=== PATIENT | female | born 1985 | race Caucasian/White ===

== ENCOUNTER 2017-08-13 15:52 | Emergency (ER) | payer OTHER ==
[~2017-08-13] VITALS: Ht 167.6 cm; Wt 99.8 kg
[~2017-08-13 15:52] MED LIST: AMITRIPTYLINE H10 MG PO; AMITRIPTYLINE H25 MG PO; AUGMENTIN 875-1 EACH PO; BACTRIM DS TAB1 EACH PO; DIVALPROEX SOD250 MG PO; HYDROCODON-ACE1 EA10 PO; IBUPROFEN200 M1 PO; KEFLEX500 MG PO; MACROBID 100 M100 MG PO; MOTRIN IB200 MG PO; MOTRIN600 MG PO; NICODERM CQ1 EAC1 TD; NORCO 5-325 TA1 EACH PO; OMEPRAZOLE20 MG PO; ORTHO TRI-CYCL1 EACH PO; OXYCODONE HCL10 MG PO; OXYCODONE-ACET1 EAC1 PO; PERCOCET 5-3251 EACH PO; PRENATAL VITAM1 EAC3 PO; PRILOSEC OTC20 MG PO; PROMETHAZINE HC25 M1 PO; PROTONIX40 MG PO; SENNA8.6 MG PO; TUMS200 MG PO; TYLENOL EXTRA500 MG PO; TYLENOL325 MG PO; ZOFRAN4 MG PO; ZOLOFT100 MG PO; ZOLOFT25 MG PO
[2017-08-13] MEDS ORDERED: GABAPENTIN600 MG PO ×2 (16:28→16:29)
[2017-08-13] MEDS ORDERED: ULTRAM50 MG PO (17:49)
== END 2017-08-13 18:33 | disposition home or self-care (01) ==
LOC: ED 15:52
DX: S93.401A Sprain of unspecified ligament of right ankle, initial encounter (principal); F17.200 Nicotine dependence, unspecified, uncomplicated; Z90.710 Acquired absence of both cervix and uterus; Z90.49 Acquired absence of other specified parts of digestive tract; Z88.8 Allergy status to other drugs, medicaments and biological substances; Z79.899 Other long term (current) drug therapy; X50.1XXA Overexertion from prolonged static or awkward postures, initial encounter
CPT/HCPCS: 73610; 99283

== ENCOUNTER 2018-01-14 19:58 | Emergency (ER) | payer OTHER ==
[~2018-01-14] VITALS: Ht 167.6 cm; Wt 99.8 kg
[~2018-01-14 19:58] MED LIST changes: +GABAPENTIN600 MG PO; +ULTRAM50 MG PO
== END 2018-01-14 22:12 | disposition home or self-care (01) ==
LOC: ED 19:58
DX: G43.909 Migraine, unspecified, not intractable, without status migrainosus (principal); F17.200 Nicotine dependence, unspecified, uncomplicated; Z88.8 Allergy status to other drugs, medicaments and biological substances; Z79.899 Other long term (current) drug therapy
CPT/HCPCS: 96361; 96374; 96375; 99282; J1200; J1885; J2765; J7030

== ENCOUNTER 2019-03-03 11:00 | Day surgery (SDC) | payer OTHER ==
[~2019-03-03] VITALS: Ht 167.6 cm; Wt 140.2 kg
[~2019-03-03 11:00] MED LIST changes: +AMITRIPTYLINE H75 MG PO; +HYDRALAZINE HCL10 MG PO
[2019-03-03] MEDS ORDERED: HYDROCODON-ACE1 EA10 PO (12:41)
[2019-03-03] MEDS ORDERED: CELEBREX200 MG PO (12:41)
--- NOTE | 2019-03-03 12:46 | NUR ---
03/03/19 1246 Sheets,Milka 1238 PT ARRIVED TO PACU ON 10L VIA MASK, PT DENIES PAIN AND NAUSEA. RESP EVEN AND UNLABORED. PT DROWSY AND TLAKING TO RN. PT REORIENTED TO PACU. PT REPORTS NUMBNESS IN HAND, EDUCAITON GIVEN ON BLOCK. 1242 O2 REMOVED, PT ASKING TO WATER. RIGHT HAND ELEVATED ON PILLOW. PT BACK TO SLEEP, SMALL AMOUNT OF SNORING NOTED.
--- NOTE | 2019-03-04 11:48 | OR ---
[facility] [address], [place] [address] Signed DATE OF OPERATION: 03/03/2019 SURGEON: Domenic Steele MD PREOPERATIVE DIAGNOSIS: Right carpal tunnel syndrome. POSTOPERATIVE DIAGNOSIS: Right carpal tunnel syndrome. PROCEDURE PERFORMED: Right carpal tunnel release. ANESTHESIA: [place] block with sedation. TEAM CDL DRIVER: None. TOURNIQUET TIME: 21 minutes. BRIEF HISTORY: Poornima is a 34-year-old female with progressive worsening of numbness and pain in her wrist and hand. Nerve conduction studies were consistent with severe carpal tunnel. Risks and benefits of operative treatment were discussed with her and she elected to proceed. DESCRIPTION OF PROCEDURE: Once the consent was obtained, she was taken to the operating room. After adequate anesthesia, she was placed on the operating room table. All downside pressure points were well padded. The right arm was prepped and draped in the standard sterile fashion. A standard 1.5 cm incision was made in the distal wrist crease, carried through skin and subcutaneous tissue. Palmaris longus was identified, retracted and protected. The transverse carpal ligament was identified with some difficulty due to overlying fat. We were able to identify and dissect free overlying soft tissue. It was then released proximally 1 cm and distally to the distal extent. It was quite thickened in its midportion. This was done under loupe magnification. The canal was then completely palpated using the [place] elevator and found to be released. The wound was copiously irrigated with antibiotic solution and closed with 3-0 nylon. We did inject 3 mL of Electronically Signed By: DOMENIC STEELE MD 03/04/19 1148 PATIENT NAME: POORNIMA CHOUDHARY OPERATIVE REPORT DATE OF : 85 REPORT #: [id number] PHYSICIAN: DOMENIC STEELE MD PCP: STAR MARTINEZ REPORT IS CONFIDENTIAL AND NOT TO BE RELEASED WITHOUT AUTHORIZATION [facility] [address] [place] [facility] [place] [address] Signed 0.25% plain Marcaine without epinephrine at the end of the procedure. She tolerated this well. The wound was dressed with bacitracin, Adaptic, 4 x 8, and gauze. She was taken to the recovery room in satisfactory condition. Domenic Steele MD BA/MODL /[id number] Copies: ~ Electronically Signed By: DOMENIC STEELE MD 03/04/19 1148 PATIENT NAME: POORNIMA CHOUDHARY OPERATIVE REPORT DATE OF : 85 REPORT #: [id number] PHYSICIAN: DOMENIC STEELE MD PCP: STAR MARTINEZ REPORT IS CONFIDENTIAL AND NOT TO BE RELEASED WITHOUT AUTHORIZATION
== END 2019-03-03 13:25 | disposition home or self-care (01) ==
LOC: OPS 11:00 → DS 11:00 → OPS 12:00
PROVIDERS: Specialist
PROC: 01N50ZZ Release Median Nerve, Open Approach (ICD-10-PCS; principal; 2019-03-03 12:00)
DX: G56.03 Carpal tunnel syndrome, bilateral upper limbs (principal); G43.909 Migraine, unspecified, not intractable, without status migrainosus; K21.9 Gastro-esophageal reflux disease without esophagitis; E66.01 Morbid (severe) obesity due to excess calories; Z79.899 Other long term (current) drug therapy; Z68.42 Body mass index [BMI] 45.0-49.9, adult
CPT/HCPCS: J0690; J2597; J2704; J3010; J7120

== ENCOUNTER 2021-02-11 08:05 | Day surgery (SDC) | payer OTHER ==
[~2021-02-11] VITALS: Ht 167.6 cm; Wt 155.0 kg
[~2021-02-11 08:05] MED LIST changes: +CELEBREX200 MG PO
--- NOTE | 2021-02-11 12:33 | NUR ---
02/11/21 Edwige Bolton 1226-PATIENT ARRIVED TO PACU ON 6L MASK NONAROUSABLE ORAL AIRWAY IN PLACE. SR. RN DOING JAW THRUST TO MAINTAIN OPEN AIRWAY. 02 SAT RANGING 90-91% O2 INCREASED TO 10 L MASK O2 INCREASED TO 93-94% ABDOMEN ROUND AND ABDOMINAL BINDER IN PLACE. 2 INCISIONS CDI DOMENCIA DRAIN SANGUINOUS DRAINAGE. IVF INFUSING. 1233-RN CONTINUES TO DO JAW THRUST. PATIENT NONAROUSABLE 10L MASK 94% RR EVEN.
[2021-02-11] MEDS ORDERED: ACETAMINOPHEN500 MG PO (13:00)
[2021-02-11] MEDS ORDERED: IBUPROFEN600 MG PO (13:00)
--- NOTE | 2021-02-11 13:42 | NUR ---
1330: PT ARRIVES TO DS RM 12 FROM PACU AWAKE AND ALERT. PT STATES PAIN IS TOLERABLE EXCEPT FOR WHEN SHE MOVES. PT ALSO STATES FEELING NAUSEATED AND BEING "REALLY HOT." PT PROVIDED ALCOHOL SWAB TO INHALE, COOL WASH CLOTH TO FOREHEAD AND FLORENCIA HUGGER ON COOL. PT MOTHER AT BEDSIDE, CALL LIGHT WITHIN REACH. DC CRITERIA EXPLAINED TO PT, PT STATES, "I AM JUST REALLY TIRED."
--- NOTE | 2021-02-11 14:46 | NUR ---
PT RESTING IN BED, REQUESTS "7-UP" FOR NAUSEA AND PROVIDED [place] SODA AND IV MEDICATION, SEE EMAR. PT STATES PAIN IN ABD IS 6/10 AND WOULD LIKE TO TRY PO PAIN MEDS. PT CONT TO USE FLORENCIA HUGGER ON COOL TO FACE STATES, "I NEED ONE OF THESE FOR HOME, I AM SO WARM BLOODED." CALL LIGHT WITHIN REACH, MOTHER OUT OF ROOM AT THIS TIME.
--- NOTE | 2021-02-11 14:59 | NUR ---
[id number]: CHECKED ON PT, RESTING SOUND WITH EYES CLOSED ON 2 L VIA NC WITH SATS GREATER THAN 94%. PT DOES NOT WAKE WITH OPENING OF DOOR, MOTHER AT BEDSIDE ON PERSONAL CELL PHONE.
--- NOTE | 2021-02-11 15:46 | NUR ---
PT RESTING IN BED WITH MOTHER AT BEDSIDE. PT STATES BEING HOT AND REQUESTS SCD'S TO BE REMOVED. THIS RN ENCOURAGES PT TO PUMP FEET AND MOVE LEGS, PT AGREES. PT STATES NAUSEA IS "MUCH BETTER" AND TOLERATES SODA AND PUDDING WITH NO EMESIS. PT STATES PAIN IS "WHERE I ALWAYS LIVE AT 4/10" AND TOLERABLE. PT ENCOURAGED TO USE CALL LIGHT WITH URGE TO VOID.
--- NOTE | 2021-02-11 16:01 | NUR ---
PT SITS AT SIDE OF BED WITH RN ASSIST. DENIES ANY NAUSEA OR DIZZINESS WITH POSITION CHANGE. PT STANDS AT SIDE OF BED AND EVENTUALLY AMBULATES WITH STEADY GAIT TO BATHROOM AND IS ABLE TO VOID APPROX 300 MLS SAE COLORED URINE. PT BACK TO DS RM 12 AND WOULD LIKE TO GET DRESSED IN PREPARATION TO DC HOME. PT MOTHER IN RM TO ASSIST IF NEEDED.
--- NOTE | 2021-02-11 16:47 | NUR ---
1615: DC INSTRUCTIONS PRESENTED TO PT AND MOTHER, PT AWARE OF MEDICATION CALLED TO PREFERRED PHARMACY. DOMENICA DRAIN EMPTIED OF APPROX 40 MLS SANGUINOUS OUTPUT WITH SMALL CLOT PRESENT. PT EDUCATED HOW TO CARE FOR DRAIN AND PRINTED EDUCATION ALSO PROVIDED. PT ABLE TO TRANSFER SELF FROM STRETCHER TO AND THIS RN PUSHES PT AND PURVI RN PUSHES PT MOTHER WHO USES CANE IN SEPERATE WC TO PERSONAL VEHICLE IN PARKING LOT TO HOME.
--- NOTE | 2021-02-11 19:50 | OR ---
[facility] [address] [place], [place] [address] Signed DATE OF OPERATION: 02/11/2021 SURGEON: Cleve Condon MD PREOPERATIVE DIAGNOSES: 1. Morbid obesity, 380 pounds. 2. Incarcerated incisional hernia, lower abdomen. POSTOPERATIVE DIAGNOSES: 1. Morbid obesity, 380 pounds. 2. Incarcerated incisional hernia, lower abdomen. PROCEDURES: 1. Repair of incarcerated painful incisional hernia, prolonged, complicated and difficult. 2. Implantation of Prolene mesh underlay technique. ANESTHESIA: General endotracheal, Anders Phan, [employer], and local 10 mL of 0.25% Marcaine with epinephrine. INDICATION: This morbidly obese 380-pound 36-year-old woman is a patient of [facility] Roberts. She was having significant abdominal pain in the lower abdomen. She has undergone prior pelvic laparotomy through a midline incision for appendectomy in 2001, which was difficult at that time. Imaging studies including CT scan show a significant amount of herniated small bowel and the subcutaneous tissue emanating inferiorly and to the right. She has significant pain and tenderness to the site. There is a smaller inconsequential midline incisional hernia in the upper midline which has only fat in it but it is of little concern and not symptomatic. Given the incarcerated nature of the hernia and despite her obesity and ongoing use of marijuana, smoking, repair is indicated given the extensive amount of small bowel herniated and nonreducible. The patient and her mother understand well the risk of bleeding, infection, recurrence and so on. FINDINGS: Electronically Signed By: CLEVE CONDON MD 02/11/21 1950 PATIENT NAME: POORNIMA CHOUDHARY OPERATIVE REPORT DATE OF : 85 REPORT #: [id number] PHYSICIAN: CLEVE CONDON MD PCP: JASSI PORTER PA-C REPORT IS CONFIDENTIAL AND NOT TO BE RELEASED WITHOUT AUTHORIZATION [facility] [address] [place], [place] [address] Signed The defect was inferior to the umbilicus in the midline fascial incision from the past. A very dense hernia sac was noted around it. The bowel loops were primarily small bowel and there were interloop adhesions related to the chronicity of the herniation apparently. The bowel loops were freed up and returned to the abdominal cavity. A fair amount of omentum was herniated as well. Hernia repair consisted of reduction of the hernia, reapproximation of the peritoneal defect and development of the properitoneal space circumferentially with implantation of Prolene mesh in the properitoneal space. Transverse reapproximation of fascial edges was undertaken as well. Prolene sutures as well as Prolene pledgets were used. A drain was placed. DESCRIPTION OF PROCEDURE: The patient was brought to the operating room and given a general endotracheal anesthetic. Preoperative antibiotic Ancef was given. Sequential compression device stockings were used and heparin subcutaneously administered. The abdominal pannus was quite impressive. There was a bit of excoriation in the inferior pannus crease but no sign of active infection per se. The abdomen was clipped and prepared with an iodine based solution and given a bit of panniculitis inferiorly, Ioban dressing was applied as well. An incision was made cephalad to the umbilicus, extended around the umbilicus to the right and carried inferiorly. A very thick abdominal pannus was noted. Dissection was carried through the subcutaneous tissues with electrocautery. There was no significant defect at the umbilicus proper, but inferior to it and corresponding to the midline incision dense scarring could be identified. Ultimately a very amorphous and rather large area of herniation was noted. This was freed from the surrounding subcutaneous tissue with blunt electrocautery dissection. Ultimately, the fibrous confines of the fascial defect could be identified. This was approximately 4-6 cm. The hernia sac was opened and small bowel contained within it had a fair amount of adhesions to the hernia sac itself. These were freed with blunt electrocautery dissection. Interloop adhesions were freed with sharp dissection. The small bowel was returned to the intraabdominal cavity and as was the omentum. The peritoneal layer and overlying fascia were freed circumferentially with meticulous care and the peritoneal defect reapproximated with 2-0 Vicryl suture. Once the properitoneal space was freed circumferentially to the level of at least 4 cm, a 6 inch x 6 inch piece of Prolene mesh was cut to an oblong configuration and secured transversely in the properitoneal space. This was secured with 0 Prolene sutures with Prolene pledgets. The fascia was then reapproximated transversely with interrupted 0 Prolene in horizontal mattress configuration using Prolene pledgets as well. A 10 mL of 0.25% Marcaine was injected locally. Irrigation was undertaken. Given the extent of dissection and so forth, a stab incision was made in the right lower quadrant and a 7 mm Arron placed into the depths of the wound. Armando's layer was reapproximated with interrupted 2-0 Vicryl. The skin was closed with running subcuticular 3-0 Vicryl. Steri-Strips were applied as was an Acticoat dressing. The drain was attached to bulb Electronically Signed By: CLEVE CONDON MD 02/11/21 1950 PATIENT NAME: POORNIMA CHOUDHARY OPERATIVE REPORT DATE OF : 85 REPORT #: [id number] PHYSICIAN: CLEVE CONDON MD PCP: JASSI PORTER PA-C REPORT IS CONFIDENTIAL AND NOT TO BE RELEASED WITHOUT AUTHORIZATION [facility] [address] [place], [place] [address] Signed suction. Blood loss from the operation was probably 25 mL. The operation was prolonged, complicated, and difficult lasting four times longer than usual. Upon emergence from anesthesia, she had a fair amount of coughing and straining. The incision was stabilized as best could be. She was taken down to the depths of anesthesia again and carefully withdrawn at this time not having as much straining. I detected no disruption of the fascial repair despite her extreme straining as noted. She was then configured with an extra-large abdominal binder and transported to the recovery room in good condition having suffered no known complications. Sponge, needle, and instrument counts were reported as correct x3. The operation was prolonged, complicated, and difficult as previously noted. Secure repair of the defect has been accomplished. MD MELISSA Sibley/LAWRENCE /[id number] cc: Denia HONG Copies: ~ Electronically Signed By: CLEVE CONDON MD 02/11/21 1950 PATIENT NAME: POORNIMA CHOUDHARY OPERATIVE REPORT DATE OF : 85 REPORT #: [id number] PHYSICIAN: CLEVE CONDON MD PCP: JASSI PORTER PA-C REPORT IS CONFIDENTIAL AND NOT TO BE RELEASED WITHOUT AUTHORIZATION
== END 2021-02-11 16:30 | disposition home or self-care (01) ==
LOC: DS 08:05 → OPS 08:05 → DS 08:45 → OPS 08:45
PROVIDERS: ATTEND Surgery
PROC: 0WUF0JZ Supplement Abdominal Wall with Synthetic Substitute, Open Approach (ICD-10-PCS; principal; 2021-02-11 08:45)
DX: K43.6 Other and unspecified ventral hernia with obstruction, without gangrene (principal); G47.33 Obstructive sleep apnea (adult) (pediatric); E66.01 Morbid (severe) obesity due to excess calories; K21.9 Gastro-esophageal reflux disease without esophagitis; F32.9 Major depressive disorder, single episode, unspecified; F19.21 Other psychoactive substance dependence, in remission; Z68.43 Body mass index [BMI] 50.0-59.9, adult; Z90.49 Acquired absence of other specified parts of digestive tract; Z90.711 Acquired absence of uterus with remaining cervical stump
CPT/HCPCS: 00752; C1781; J0690; J1100; J1170; J1644; J1885; J2001; J2250; J2370; J2405; J2704; J3010; J7121

== ENCOUNTER 2021-02-21 18:18 | Emergency (ER) | payer OTHER ==
[~2021-02-21] VITALS: Ht 167.6 cm; Wt 136.5 kg
[~2021-02-21 18:18] MED LIST changes: +ACETAMINOPHEN500 MG PO; +IBUPROFEN600 MG PO
--- OUTSIDE RECORDS SUMMARY | 2021-02-21 18:20 | XMS ---
PreManage Notification: POORNIMA CHOUDHARY Security Clerical Manager Events No recent Security Events currently on file CRITERIA MET - Group Notification CARE PROVIDERS PERFECTO HUNTER [facility] Current PHONE: Unknown Cm has no Care Guidelines for this patient. EJuly VISIT COUNT (12 MO.) 1 NORMA Tavares TOTAL 1 NOTE: Visits indicate total known visits. ED/UCC VISIT TRACKING (12 MO.) 02/21/2021 18:18 NORMA Womack [place] TYPE: Emergency COMPLAINT: - POST OP PROBLEM INPATIENT VISIT TRACKING (12 MO.) No inpatient visits to display in this time frame [email or web address]
== END 2021-02-21 21:18 | disposition home or self-care (01) ==
LOC: ED 18:18
DX: T81.31XA Disruption of external operation (surgical) wound, not elsewhere classified, initial encounter (principal); G43.909 Migraine, unspecified, not intractable, without status migrainosus; Z88.8 Allergy status to other drugs, medicaments and biological substances; Z79.899 Other long term (current) drug therapy
CPT/HCPCS: 12020; 99283-25

== ENCOUNTER 2021-04-28 09:59 | Observation (INO) | payer OTHER ==
[~2021-04-28] VITALS: Ht 167.6 cm; Wt 137.0 kg
--- NOTE | 2021-04-28 15:45 | NUR ---
Pt arrives to med surg floor via stretcher. Alert and oriented, on room air. Reporting pain 8/10 to ABD and nauseous. PRN medication administered. VSS. Admission assessment and history completed. Plan of care reviewed, pt agreeable. MotherWendy, in room and engaged in care. IVF infusing WNL. Warm blankets provided. Oriented to room and call light.
--- NOTE | 2021-04-28 18:02 | NUR ---
Vitals and I/O's complete, pain reassessed, pt states tolerable level of pain and no nausea after medications. Pt updated on plan of care, has no needs at this time. IVF infusing WNL. Call light in reach.
--- NOTE | 2021-04-28 19:39 | NUR ---
WENT OVER THE CONSENT WITH PATIENT, SHE HAD NO QUESTIONS.
--- NOTE | 2021-04-28 19:46 | NUR ---
REPORT RECEIVED FROM DAY SHIFT RN. PT LYING IN BED ALERT AND ORIENTED. LIQUIDS PROVIDED. PT REPORTS ABD PAIN 04/29. PRN FOR PAIN ADMINISTERED PER EMAR. PT DENIES FURTHER NEEDS. CALL LIGHT IN REACH. WHITE BOARD UPDATED.
--- NOTE | 2021-04-28 20:25 | NUR ---
EVENING ASSESSMENT COMPLETE. SCHEDULED MEDS ADMINISTERED PER EMAR. PT REPORTS ABD PAIN IS TOLERABLE AT THIS TIME. DENIES NAUSEA. BOWEL TONES HYPOACTIVE. ABD TENDED. SANDWICH BOX PROVIDED. PT DENIES QUESTIONS OR CONCERNS. CALL LIGHT IN REACH.
--- NOTE | 2021-04-28 22:45 | NUR ---
PT RESTING IN BED ON LEFT SIDE WITH EYES CLOSED. RESPIRATIONS EVEN. IVF INFUSING WNL. CALL LIGHT IN REACH.
--- NOTE | 2021-04-29 00:10 | NUR ---
PT UP TO BR INDEPENDENTLY. BACK TO BED, LAYLA FAIR. PRN FOR 8/10 ABD PAIN ADMINISTERED PER EMAR. PT NPO AT THIS TIME. IVF INFUSING WNL. NO FURTHER NEEDS.
--- NOTE | 2021-04-29 00:58 | NUR ---
CALL LIGHT ANSWERED. PT WITH LARGE EMESIS ON FLOOR. PRN FOR N/V ADMINISTERED PER EMAR. PT REPORTS FEELING BETTER AFTER EMESIS. ES IN ROOM TO CLEAN FLOOR. NO FURTHER NEEDS AT THIS TIME. CALL LIGHT IN REACH.
--- NOTE | 2021-04-29 01:13 | NUR ---
MORE VOMITUS ON THE FLOOR WITH SOME PIECES LIKE CHICKEN MEAT.
--- NOTE | 2021-04-29 03:45 | NUR ---
PT RESTING IN BED WITH EYES CLOSED, NAD.
--- NOTE | 2021-04-29 06:04 | NUR ---
VS AND I&O COMPLETE. PT REPORTS SHE IS RESTING WELL. DENIES NAUSEA. REPORTS HEADACHE 03/29. PRN FOR PAIN ADMINISTERED PER EMAR. BOWEL TONES HYPOACTIVE. SCD'S IN PLACE. IVF INFUSING WNL. NO FURTHER NEEDS AT THIS TIME. CALL LIGHT IN REACH.
--- NOTE | 2021-04-29 07:00 | NUR ---
Report received from Sue CHAVEZ. Pt resting in bed, alert and oriented, stating no needs at this time. Updated regarding plan of care and scheduled procedure, pt is agreeable and has no questions. IVF infusing WNL.
[2021-04-29] MEDS ORDERED: AMITRIPTYLINE H25 MG PO (07:28)
[2021-04-29] MEDS ORDERED: OMEPRAZOLE40 MG PO (07:29)
--- NOTE | 2021-04-29 07:48 | NUR ---
The board was updated, and a warm wash cloth was offered but refused. No requests from the patient at this time.
--- NOTE | 2021-04-29 07:58 | NUR ---
Patient is NPO and requested to freshen up the inside of her mouth. Lemon glycern swaps were provided and used.
--- NOTE | 2021-04-29 08:20 | NUR ---
Scheduled medications administered, assessment complete. Pt resting with no needs, states no pain or nausea at this time, IVF infusing WNL. Surgical wipedown wipes provided and pt verbalizes understanding of instructions, encouraged to call with needs.
[2021-04-29] MEDS ORDERED: ALEVE220 MG PO (08:25)
--- NOTE | 2021-04-29 08:27 | NUR ---
MED REC COMPLETE
--- NOTE | 2021-04-29 09:48 | NUR ---
Vitals are done and I&Os were recorded. Pateint in bed resting, watching tv. Patient asked for pain meds and the nurse was notified. Call light in reach, no further needs at this time.
--- NOTE | 2021-04-29 09:58 | NUR ---
PRN medications for pain, nausea administered. Pt states no other needs and would like to rest before surgery, call light in reach. Will continue to monitor
--- NOTE | 2021-04-29 11:45 | NUR ---
Rounded on patient, resting in bed with no needs. Call light in reach.
--- NOTE | 2021-04-29 12:00 | NUR ---
Pt leaves for procedure.
--- NOTE | 2021-04-29 13:30 | NUR ---
Attempted to see pt and she is gone to surgery. Will see tomorrow.
--- NOTE | 2021-04-29 15:34 | NUR ---
04/29/21 1534 Genoveva Bosch 1522 PATIENT ARRIVES TO PACU RESTING WITH EYES CLOSED. MOANING AT TIMES. PULLING AT OXYGEN MASK. RESP EVEN, BUT NOT EFFECTIVE, VERY SHALLOW. PATIENT ENCOURAGED TO COUGH AND DEEP BREATHE, FOLLOWS COMMANDS. DENIES PAIN, BUT VERY DIAPHORETIC AND NAUSEATED. 1532 PATIENT WAS MEDICATED FOR NAUSEA, BUT CONTINUES TO C/O NAUSEA. RESP EVEN AND UNLABORED, BREATHING MORE EFFECIENTLY . SATS >95% ON 6 LITERS BLOW BY. MASK OFF BECAUSE PATIENT IS DRY HEAVING. PATIENT ABLE TO COUGH UP THICK AMOUNT OF MUCOUS AND FEELING BETTER.
--- NOTE | 2021-04-29 16:50 | NUR ---
Pt arrives to med surg unit via wheelchair after procedure. States pain is minimal, no nausea. Abdominal dressing C/D/I, DOMENICA drain intact with sangiunous drainage noted. VSS, pt SPO2 ranges from 88-95% on room air, using I.S. independently.
--- NOTE | 2021-04-29 18:21 | NUR ---
PATIENT UP TO BATHROOM AND BACK TO BED, SBA. PATIENT ATE JELLO AND PUDDING AND IS TOLERATING IT WELL. FRESH WATER GIVEN. VISITOR IN ROOM. CALL LIGHT IN REACH. NO FURTHER NEEDS AT THIS TIME.
--- NOTE | 2021-04-29 19:01 | NUR ---
Pt medicated for 4/10 pain with PRN tylenol and toradol. Pt tolerating PO intake, on 1.5L O2 and SPO2 91%. Pt has no other needs at this time, expresses desire to be discharged, this RN reassures patient she will be discharged when medically cleared.
--- NOTE | 2021-04-29 19:26 | NUR ---
REPORT RECEIVED FROM DAY SHIFT RN. PT IN BR WITH CREATIVE WRITING TEACHER ASSIST. BACK TO BED, LAYLA WELL. REPORTS PAIN IS TOLERABLE. DENIES NAUSEA. CPOX IN PLACE. IVF INFUSING WNL. DENIES FURTHER NEEDS AT THIS TIME. CALL LIGHT IN REACH.
--- NOTE | 2021-04-29 19:50 | NUR ---
BREATHING TX COMPLETE. PT SpO2 93 ON 1L/NC. DENIES SOB. PT HAS AGREED TO STAY THE NIGHT. POST OP VITALS COMPLETE, WNL. DENIES FURTHER NEEDS. CALL LIGHT IN REACH.
--- NOTE | 2021-04-29 20:25 | NUR ---
INTO PT ROOM D/T IV ALARMING. FIXED, NOW INFUSING. DENIED NEEDS AT THIS TIME.
--- NOTE | 2021-04-29 22:23 | NUR ---
EVENING ASSESSMENT COMPLETE. SCHEDULED MEDS ADMINISTERED PER EMAR. PT DENIES PAIN OR NAUSEA. ABD DRESSING INTACT WITH SCANT AMOUNT SHADOWING. DOMENICA WITH 30 ML SEROSANG DRAINAGE. BOWEL TONES ACTIVE. ABD SOFT. OXYGEN TITRATED TO 3L/NC TO KEEP SATS >90%. PT NODS OFF DURING CARES, REPORTS SHE IS STILL DROWSY FROM ANESTHESIA. CPOX IN PLACE. CLEAR LIQUIDS AND CRACKERS PROVIDED. PT DENIES FUTHER NEEDS. CALL LIGHT IN REACH.
--- NOTE | 2021-04-30 00:12 | NUR ---
PT RESTING IN BED WITH EYES CLOSED, NO APPARENT DISTRESS. RESPIRATIONS EVEN.
--- NOTE | 2021-04-30 01:56 | NUR ---
VS AND I&O COMPLETE. PT ON RA AT THIS TIME. SpO2 90-93% ON RA. PT DENIES PAIN OR NAUSEA. FRESH WATER PROVIDED. NO FURTHER NEEDS.
--- NOTE | 2021-04-30 03:50 | NUR ---
PT RESTING ON BED WITH EYES CLOSED. RESPIRATIONS EVEN. SpO2 90'S. HR 60'S. NO APPARENT DISTRESS.
--- NOTE | 2021-04-30 06:09 | NUR ---
ASSESSMENT COMPLETE. MIDLINE ABD DRESSING WITH SCANT AMOUNT RED DRAINAGE. DOMENICA WITH SEROSANG DRAINAGE. BOWEL TONES ACTIVE. ABD SOFT. PT REPORTS FLATUS. PRN FOR PAIN ADMINISTERED FOR 3/10 ABD PAIN. REGULAR BREAKFAST ORDERED. PT DENIES NAUSEA. NO FURTHER NEEDS. CALL LIGHT IN REACH.
--- NOTE | 2021-04-30 07:39 | NUR ---
BEDSIDE REPORT FROM MAULIK CHAVEZ..PT SITTING UP IN RECLINER ON ROOM AIR, PT REPORTS NO PAIN AT THIS TIME. BREAKFAST IS ORDERED.
--- NOTE | 2021-04-30 08:06 | NUR ---
PT SITTING UP EATING BREAKFAST, REPORTS PASSING FLATUS. NO NAUSEA OR PAIN
--- NOTE | 2021-04-30 08:18 | NUR ---
PATIENT SITTING UP IN CHAIR. BREAKFAST WAS DELIVERED. WHITE BOARD UPDATED. PATIENT STATED SHE DOES NOT NEED ANYTHING AT THIS TIME. CALL LIGHT IN REACH.
[2021-04-30] MEDS ORDERED: NICOTINE1 EAC2 TD (09:00)
[2021-04-30] MEDS ORDERED: ACETAMINOPHEN500 MG PO (09:00)
--- NOTE | 2021-04-30 09:00 | NUR ---
Spoke with Ayala and she lives in a 1 story home without steps. She has 2 children 7&10. Does not use DME. She is a part time flexible clerk student. uses food stamps. She plans on dc today and her aunt will pick her up. Her mom will assist her as needed. Pt states she is feeling very well and does not think she will need assist, but has family who will help if needed.
--- NOTE | 2021-04-30 09:45 | NUR ---
DISCHARGE PACKET WITH EDUCATIONS GIVEN TO PATIENT. ALSO PRINT OUT ON DOMENICA DRAIN AND FLOW CHART TO RECORD VOL OUT. DISCUSSED WITH PATIENT WOUND CARE, DOMENICA CARE, SMOKING CESSATION AND PAIN MANGEMENT. PT VERBALIZED INSTRUCTIONS. IV REMOVED BY BOSSMAN COTO RN, EDUCATION ON MONITORING IV REMOVAL SITE.
--- NOTE | 2021-05-01 11:24 | PATH ---
[facility] [address] [facility] [place], [place] [address] Signed SPECIMEN(S): A SOFT TISSUE MASS ABDOMINAL WALL SPECIMEN SOURCE: A. SOFT TISSUE MASS ABDOMINAL WALL CLINICAL HISTORY: Abdominal seroma, incarcerated ventral hernia. FINAL PATHOLOGIC DIAGNOSIS: Soft tissue mass, abdominal wall, excision: - Dense fibrocollagenous tissue with reactive changes, embedded surgical mesh material, foreign body type giant cell reaction and adjacent fat necrosis. COMMENT: Polarizable foreign material is seen associated with the foreign-body type giant cells. NAL:cml:C2NR MICROSCOPIC EXAMINATION: Histologic sections of all submitted blocks are examined by light microscopy. These findings, together with the gross examination, support the pathologic diagnosis. GROSS DESCRIPTION: The specimen, labeled "OW, A," and designated on the requisition "soft tissue mass abdominal wall," is received in formalin and consists of a portion of yellow-dennis fatty to pink-dennis smooth to fibrous soft tissue (11.2 x 0.7 x 3.9 cm). The specimen is serially sectioned reveal a yellow-dennis fatty to white-dennis fibrous cut surface with translucent mesh material. Barrel Painter sections are submitted in cassettes A1-A4. AC (under the direct supervision of a pathologist) The Gross Description was prepared using a voice recognition system. The report was reviewed for accuracy; however, sound-alike word errors, addition and/or deletions may occur. If there is any question about this report, please contact Client Services. PERFORMING LABORATORY: The technical component was performed by [facility], [address] [place] [id number] (Email Marketing Manager: Madison Ocampo MD; CLIA# [id number]). Professional interpretation was performed by PATIENT NAME: POORNIMA CHOUDHARY PATHOLOGY DATE OF : 85 REPORT #: [id number] PHYSICIAN: RAJAN PATHOLOGY PCP: JASSI PORTER PA-C REPORT IS CONFIDENTIAL AND NOT TO BE RELEASED WITHOUT AUTHORIZATION [facility] [address] [place], [place] [address] Signed [facility], [address] [address] (CLIA# [id number]). Diagnostician: Agnie Key MD Pathologist Electronically Signed 05/01/2021 Copies: ~ PATIENT NAME: POORNIMA CHOUDHARY PATHOLOGY DATE OF : [birth year] REPORT #: [id number] PHYSICIAN: RAJAN PATHOLOGY PCP: JASSI PORTER PA-C REPORT IS CONFIDENTIAL AND NOT TO BE RELEASED WITHOUT AUTHORIZATION
--- NOTE | 2021-05-01 16:26 | OR ---
[facility] [address] [place], [place] [address] Signed DATE OF OPERATION: 04/29/2021 SURGEON: Cleve Condon MD PREOPERATIVE DIAGNOSES: 1. Symptomatic painful giant fiber soft tissue mass (cystic) of abdominal wall. 2. Morbid obesity. 3. History of complex incisional hernia repair in January 2021. POSTOPERATIVE DIAGNOSES: 1. Symptomatic painful giant fiber soft tissue mass (cystic) of abdominal wall. 2. Morbid obesity. 3. History of complex incisional hernia repair in January 2021. 4. Probable chronically inflamed thickened seroma cavity with membranous wall. PROCEDURE: Excision of large abdominal wall cystic mass and drainage of fluid, placement of drain. ANESTHESIA: General endotracheal, Amilcar Silverman CRNA and local 10 mL of 0.25% Marcaine with epinephrine. INDICATION: This 36-year-old morbidly obese white woman underwent complex incisional hernia repair by tx in January. She had incarcerated small bowel and portions of colon emanating into the right side of the midline from prior umbilical incision in the past. Complete reduction of the bowel was undertaken and repair of the abdominal wall hernia was undertaken with Prolene mesh in an underlay technique (subfascial). A drain was placed at the time of operation. In the early postoperative period, the drain was dislodged and removed. She later had some issues of wound separation in the inferior aspect of the midline incision, which was treated conservatively with wound dressing changes, which was successful. She presented to the emergency room yesterday with severe abdominal pain in the periumbilical area. She was noted to have a reducible incisional hernia in the epigastric area, which was rather small. The CT scan was performed under the direction of Dr. Albarado, which demonstrated what was initially thought to be incarcerated recurrent incisional hernia in the region of the umbilicus with a very large subcutaneous fluid filled mass. Close inspection, however, showed that the fascial edge did not have any discontinuity. She has been admitted, given intravenous fluids and so Electronically Signed By: CLEVE CONDON MD 05/01/21 1626 PATIENT NAME: POORNIMA CHOUDHARY OPERATIVE REPORT DATE OF : [birth year] REPORT #: [id number] PHYSICIAN: CLEVE CONDON MD PCP: GRACE PORTER PA-C REPORT IS CONFIDENTIAL AND NOT TO BE RELEASED WITHOUT AUTHORIZATION [facility] [address] [place], [place] [address] Signed forth and close inspection upon review with the radiologist shows the offending lesion which is significantly painful and quite large and somewhat tender to possibly be a wound seroma. Given her significant abdominal obesity, only fullness is detected and not a distinct mass as it is sometimes the case. I have recommended exploration and repair of hernia found or excision of the mass as appropriate. The risk of bleeding, infection, recurrence and so forth were reviewed with her, she understands and wished to proceed. FINDINGS: Indeed this represented a chronically inflamed fibrous cystic mass of the deep subcutaneous space emanating from the fascia itself. There was no fascial defect to suggest recurrent incisional hernia after all. Complete excision of the mass with its slick surface was undertaken as simple decompression would likely result in recurrent formation of fluid collection. DESCRIPTION OF PROCEDURE: The patient was brought to the operating room, and given a general endotracheal anesthetic. Sequential compression device stockings were used and heparin subcutaneously administered. Preoperative antibiotic Ancef was given. Sequential compression device stockings were used. The abdomen was prepared with a chlorhexidine solution and draped sterilely. A scabby area in the inferior aspect was noted from prior wound care undertaken postoperatively. Incision was made in the region of the umbilicus and the prior incision was dissected and was carried through the subcutaneous tissue. Ultimately encountered was a firm fibrous sac which was concordant to CT scan findings. This was dissected free from the surrounding subcutaneous fat with meticulous care using electrocautery. Ultimately the cystic area was entered and noninfected fluid was noted consistent with seroma. This was Gram stain and cultured. Further dissection of the mass was undertaken as the very slick membrane of the cavity itself would be highly prone to recurrent fluid collection alone. Complete excision of the fibrous capsule mass was deemed most advisable. This was undertaken with electrocautery and blunt dissection circumferentially, which was rather prolonged. Ultimately it was completely excised. Cultures were obtained in the deep portion of the cavity in addition to the initial fluid that was withdrawn. Notably, the fascial area was completely intact. 2-0 Vicryl sutures were used to secure hemostasis in the abdominal wall as necessary. Irrigation was undertaken. Through a separate stab incision in the left lower quadrant, a 7 mm flat Arron drain was placed and secured doubly with nylon sutures to avoid early postoperative dislodgement as she had before. Armando layer was reapproximated with interrupted 2-0 Vicryl and skin closed with running subcuticular 3-0 Vicryl. Steri-Strips were applied as was an Acticoat silver sponge dressing. Blood loss was less Electronically Signed By: CLEVE CONDON MD 05/01/21 1626 PATIENT NAME: POORNIMA CHOUDHARY OPERATIVE REPORT DATE OF : [birth year] REPORT #: [id number] PHYSICIAN: CLEVE CONDON MD PCP: GRACE PORTER PA-C REPORT IS CONFIDENTIAL AND NOT TO BE RELEASED WITHOUT AUTHORIZATION [facility] [address] [place] [place] [address] Signed than 25 mL. Sponge, needle, and instrument counts were reported as correct x3. MD MELISSA Sibley/LAWRENCE /[id number] cc: MD Grace Menendez PA-C Copies: ERICA ALBARADO MD ~ Electronically Signed By: CLEVE CONDON MD 05/01/21 1626 PATIENT NAME: POORNIMA CHOUDHARY OPERATIVE REPORT DATE OF : [birth year] REPORT #: [id number] PHYSICIAN: CLEVE CONDON MD PCP: GRACE PORTER PA-C REPORT IS CONFIDENTIAL AND NOT TO BE RELEASED WITHOUT AUTHORIZATION
--- NOTE | 2021-05-01 16:26 | HP ---
[facility] [address] [place], [place] [address] Signed ADMISSION DATE: 04/28/2021 REASON FOR ADMISSION: Recurrent incarcerated incisional hernia in region of umbilicus. HISTORY: This morbidly obese (BMI of 48.7) 36-year-old white woman is well known to me from the past. She underwent repair of a complex abdominal wall incisional hernia with implantation of Prolene mesh in an underlay technique on February 11, 2021. The patient was maintained with the usual measures of care regarding abdominal wall management including an abdominal binder and so forth. A drain had been placed as well. She presented to the emergency room today where she was evaluated by Dr. Dorado with complaints of abdominal pain and swelling in the right inferolateral abdominal wall. A CT scan was performed, which on examination shows what appears to be incarcerated hollow viscus in the region of the umbilicus. The defect appears not to be nearly as large as before, but almost certainly represents a failure of abdominal mesh implantation from previously performed operation in January. Additionally noted was an at least 9 cm somewhat complex right ovarian cystic mass. 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 She has also undergone hysterectomy in the past. The finding of what appears to be a recurrent incisional hernia is described as a large seroma of the anterior abdominal wall where the hernia had previously been removed. Close inspection of the scan shows that this may indeed be only a fluid collection, though the possibility of herniation of intraabdominal contents is acknowledged as well. She is admitted for further evaluation and care. PAST MEDICAL HISTORY: Does include a prior history of significant drug abuse, no longer the case. She has morbid obesity as well. MEDICATIONS: Include amitriptyline, omeprazole, and Zoloft. ALLERGIES: She has allergies to ethinyl estradiol and norelgestromin ( control estrogen supplements). The patient has a distant history of pelvic inflammatory disease as well as migraines and from my recollection also history of molar . She has had , appendectomy, cholecystectomy, hysterectomy without ovariectomy, laparoscopic cholecystectomy. Electronically Signed By: CLEVE CONDON MD 05/01/21 1626 PATIENT NAME: POORNIMA CHOUDHARY HISTORY AND PHYSICAL DATE OF : 85 REPORT #: [id number] PHYSICIAN: CLEVE CONDON MD PCP: JASSI PORTER PA-C REPORT IS CONFIDENTIAL AND NOT TO BE RELEASED WITHOUT AUTHORIZATION [facility] [address] [place] [address] Signed REVIEW OF SYSTEMS: She denies any shortness of breath or chest pain. She has had no nausea or vomiting since admission, though previously did have a fair amount. SOCIAL HISTORY: She has two young children. She is accompanied by her mother, a local amaral ( ). PHYSICAL EXAMINATION: GENERAL: A morbidly obese white woman who does not look systemically toxic at this time. NECK: Trachea is midline. CHEST: Shows normal respiratory excursion. HEART: Regular. ABDOMEN: Quite morbidly obese. There is fullness in the region of the midline incision extending from the umbilicus inferiorly. There is mild tenderness as well. In the epigastric area, there is fascial defect consistent with small additional hernia. LABORATORY STUDIES: Show white count of 11.2, hematocrit of 35.0, platelets 414,000. Electrolytes are normal. Creatinine 0.64. Liver enzymes are normal. Urinalysis showed negative leukocyte esterase, rbc's per high-powered field. CT scan of the abdomen, impression showed bilateral ovarian masses with surrounding loculated pockets of fluid. Possibility of ovarian neoplasm, benign or malignant was noted. There is considered to be large seroma in the anterior abdominal wall where the area of prior hernia repair had been accomplished. ASSESSMENT: She was admitted with a high probability of incarcerated recurrent incisional hernia. Close inspection of the abdominal wall shows a fascial defect cephalad to the area of the seroma. Whether this fluid collection represents a true seroma versus a herniated intraabdominal viscus of some sort is uncertain. I would recommend as she is symptomatic from it that exploration be undertaken and if seroma excised and whatever fascial defect if any be repaired. If indeed it is a hernia, of course a reduction of the hollow viscus would be undertaken and additional repair of the fascial edge at that point. I discussed all this with the patient and her mother. As regards to the ovarian neoplastic change, further evaluation would be undertaken for that in due course, although it is not the current issue of concern. In the meantime, we will order a Electronically Signed By: CLEVE CONDON MD 05/01/21 3804 PATIENT NAME: POORNIMA CHOUDHARY HISTORY AND PHYSICAL DATE OF : 85 REPORT #: [id number] PHYSICIAN: CLEVE CONDON MD PCP: JASSI PORTER PA-C REPORT IS CONFIDENTIAL AND NOT TO BE RELEASED WITHOUT AUTHORIZATION [address] [address] Signed CA-125 tumor marker study, which may or may not be indicative of a malignant neoplasm. MD MELISSA Sibley/MODL /[id number] cc: MD Kristi Menendez MD Copies: ERICA DORADO MD, PATRICIA J MD ~ Electronically Signed By: CLEVE CONDON MD 05/01/21 1626 PATIENT NAME: POORNIMA CHOUDHARY HISTORY AND PHYSICAL DATE OF : 85 REPORT #: [id number] PHYSICIAN: CLEVE CONDON MD PCP: JASSI PORTER PA-C REPORT IS CONFIDENTIAL AND NOT TO BE RELEASED WITHOUT AUTHORIZATION
--- NOTE | 2021-05-01 16:26 | DS ---
[facility] [address] [place], [place] [address] Signed ADMISSION DATE: 04/28/2021 DISCHARGE DATE: 04/30/2021 REASON FOR ADMISSION: This morbidly obese, BMI 48.7, 36-year-old white woman is known to me from the past and undergone complex abdominal wall incisional hernia repair on February 11, 2021. She presented to the emergency room on the day of admission, evaluated by Dr. Albarado with complaints of significant abdominal pain and swelling in the right inferolateral abdominal wall. A CT scan was performed, which on examination initially appeared to be possible incarcerated hollow viscus in the region of the umbilicus suggestive of recurrent hernia. She is admitted for further evaluation and care. It is notable that her drain was placed at time of her initial hernia operation was inadvertently dislodged by the patient within the first day or so of operation. Additionally noted on the CT scan was a 9 cm somewhat complex right ovarian cystic mass. 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 PERTINENT PHYSICAL EXAMINATION: GENERAL: At time of admission showed a morbidly obese white woman, who did not look systemically toxic. NECK: Trachea is midline. CHEST: Clear. HEART: Regular without murmur. ABDOMEN: Quite obese. There is fullness in the region of the midline incision extending from the umbilicus inferiorly to the right. There is mild tenderness as well. In the epigastric area, there is a fast defect consistent with small additional hernia. LABORATORY STUDIES: Showed a white count of 11.2, creatinine 0.64, hematocrit 35, electrolytes were normal. Urinalysis was essentially normal. CT scan of the abdomen showed bilateral ovarian masses with surrounding loculated pockets of fluid, possibility of ovarian neoplasm noted, large fluid collection in anterior abdominal wall near the umbilicus, but fascia appeared intact, therefore, was not consistent with incarcerated hernia. HOSPITAL COURSE: The patient was admitted with a high probability initially of incarcerated recurrent incisional hernia, but close inspection review with radiologist showed this rather to be a thickened cystic mass of the abdominal wall. It was quite uncomfortable for her. A fascial defect cephalad to that appeared to have no evidence of incarcerated hernia Electronically Signed By: CLEVE CONDON MD 05/01/21 1626 PATIENT NAME: POORNIMA CHOUDHARY DISCHARGE SUMMARY DATE OF : 85 REPORT #: [id number] PHYSICIAN: CLEVE CONDON MD PCP: JASSI PORTER PA-C REPORT IS CONFIDENTIAL AND NOT TO BE RELEASED WITHOUT AUTHORIZATION [facility] [address] [place], [place] [address] Signed proper. Given her tenderness, the findings, and so forth, she underwent operation on April 29, 2021. She was found to have a very dense fibrous mass probably a seromatous cystic mass. There was no purulence within it. Cultures were obtained however. Complete excision of the mass and its slick inner lining was undertaken leaving the subcutaneous space with plain fat. Simple drainage of this would very unlikely allow for resolution of her problem and more likely a chronic seromatous recurring fluid cyst. The lesion was about 12 cm in width and 16 cm in length in my estimation. Notably, the fascia was completely intact, no evidence of recurrent hernia. A drain was placed. Postoperatively, she was anticipated for discharge, however, maintained O2 saturations in the 88% level and therefore, it was kept an additional night. This allowed for resolution of her symptoms entirely. At time of discharge, she is doing quite well. Her symptoms of pain and so forth from the cystic mass have resolved entirely. Drain shows only serosanguineous fluid and she understands well how to care for the drain. Notably, a CA-125 antigen test was obtained, but at the time of discharge, it was still pending. Re-evaluation of her polycystic changes of the ovaries will need to be undertaken in the future. Her valve inspector is Dr. Dill. We will be mindful of this aspect of her findings going forward, but there is no acute need for intervention at the moment. FOLLOWUP PLAN: She is return to see me in approximately two weeks at which time we will pull out the drain. DISCHARGE MEDICATIONS: Will include: 1. Tylenol 500 mg tablets two tablets p.o. q.6 hours p.r.n. pain. 2. Nicotine patch 21 mg transdermal daily #20 refill 2. Notably, patient is anticipating restarting Chantix as she had in the past in coordination with her primary care provider. 3. Sertraline 100 mg two tablets p.o. daily. 4. Amitriptyline 25 mg three tabs p.o. daily. 5. Omeprazole 40 mg p.o. daily. 6. Naprosyn 220 mg tablets two tablets p.o. as needed for pain. She will discontinue Motrin and less preferred over Naprosyn. DISCHARGE DIAGNOSES: 1. Abdominal pain with giant abdominal wall cystic mass, status post resection on April 29, 2021, most consistent with chronic inflammatory changes of giant seroma cavity. 2. Morbid obesity. 3. History of complex abdominal wall reconstruction for incarcerated hernia on February 11, Electronically Signed By: CLEVE CONDON MD 05/01/21 1626 PATIENT NAME: KENRICKPOORNIMAYANELI JORGENSEN DISCHARGE SUMMARY DATE OF : 85 REPORT #: [id number] PHYSICIAN: CLEVE CONDON MD PCP: JASSI PORTER PA-C REPORT IS CONFIDENTIAL AND NOT TO BE RELEASED WITHOUT AUTHORIZATION [address] [place] [address] Signed 2020. 4. Gastroesophageal reflux. 5. Morbid obesity. 6. Distant history of narcotic substance abuse (remission). 7. Anxiety disorder. MD MELISSA Sibley/SANAZL /[id number] cc: HAL Wetzel MD Copies: ERICA ALBARADO MD ~ Electronically Signed By: CLEVE CONDON MD 05/01/21 1626 PATIENT NAME: POORNIMA CHOUDHARY DISCHARGE SUMMARY DATE OF : [birth year] REPORT #: [id number] PHYSICIAN: CLEVE CONDON MD PCP: JASSI PORTER PA-C REPORT IS CONFIDENTIAL AND NOT TO BE RELEASED WITHOUT AUTHORIZATION
[2021-05-21] MEDS ORDERED: METRONIDAZOLE500 MG PO (11:34)
[2021-05-21] MEDS ORDERED: CIPROFLOXACIN500 MG PO (11:34)
== END 2021-04-30 10:10 | disposition home or self-care (01) ==
LOC: ED 09:59 → MS 10:02
PROVIDERS: ADMIT Surgery; ATTEND Surgery
PROC: 0JB80ZZ Excision of Abdomen Subcutaneous Tissue and Fascia, Open Approach (ICD-10-PCS; principal; 2021-04-29 11:00)
DX: R19.05 Periumbilic swelling, mass or lump (principal); M79.81 Nontraumatic hematoma of soft tissue; E66.01 Morbid (severe) obesity due to excess calories; Z68.42 Body mass index [BMI] 45.0-49.9, adult; K21.9 Gastro-esophageal reflux disease without esophagitis; F19.11 Other psychoactive substance abuse, in remission; Z20.822 Contact with and (suspected) exposure to COVID-19; F41.9 Anxiety disorder, unspecified; Z98.890 Other specified postprocedural states; Z88.8 Allergy status to other drugs, medicaments and biological substances
CPT/HCPCS: 00832; 74177; 80053; 81001; 83690; 85025; 87205; 88307; 96372; 96375; 96376; 99285-25; G0378; J0690; J1100; J1170; J1644; J1790; J1885; J2405; J2550; J2704; J3010; J3475; J7030; J7042; J7121; Q9967; U0003

== ENCOUNTER → 2021-09-22 | Day surgery (SDC) | payer OTHER ==
[~2021-09-22] MED LIST changes: +ALEVE220 MG PO; +CIPROFLOXACIN500 MG PO; +METRONIDAZOLE500 MG PO; +NICOTINE1 EAC2 TD; +OMEPRAZOLE40 MG PO
--- NOTE | 2021-09-22 13:36 | NUR ---
1315: PT ARRIVES TO UNIT AMBULATORY FOR SCHED DRAIN INSERTION WITH DR. CONDON. PLACED IN ROOM 6. VSS, RESP EVEN AND UNLABORED. PT WITHOUT NEEDS OR REQUESTS AT THIS TIME. AWAITS MD ARRIVAL. CALL LIGHT WITHIN REACH
--- NOTE | 2021-09-22 14:37 | NUR ---
1430: PROCEDURE COMPLETE. PT DRESSES SELF INDEPENDENTLY FOR DC. VSS, RESP EVEN AND UNLABORED. AMBULATES OFF OF UNIT AT THIS TIME. NO PHYSICAL S/S OF DISTRESS
--- NOTE | 2021-09-23 14:44 | OR ---
[facility] [address] [place], [place] [address] Signed DATE OF OPERATION: 09/22/2021 SURGEON: Cleve Condon MD PREOPERATIVE DIAGNOSIS: Dislodged Arron drain from depths of abdominal wound. POSTOPERATIVE DIAGNOSIS: Dislodged Arron drain from depths of abdominal wound. PROCEDURES: 1. Dilation of wound drain tract with replacement of 7-Belizean Arron drain. 2. Attachment of drain to skin with suture. ANESTHESIA: 1% lidocaine. 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 She had been clearing things up when the wound drain was dislodged a few weeks ago, which was replaced in the office setting under local anesthesia. The drainage was clearing and cessation of the drain was anticipated. However, she presented to my office earlier in the day today following the holiday break showing that the drain had been dislodged and the contents of the drain are turbid, relatively foul smelling fluid. At this point, consideration is made for incision down to the site of the persistent wound infection with application of wound VAC device simply the drain with debridement of infected tissue as appropriate. Given that she is on the [facility] replacement of the drain in the meantime, pending approval of the procedure was deemed advisable so as to not develop an abscess requiring even more elaborate intervention. On that basis, she is to undergo dilation of the drain tract site and re-application of a 7 mm Arron drain. DESCRIPTION OF PROCEDURE: In the supine position, the drain site which was in the left mid abdomen was prepared with a Betadine solution. Using a sterile hemostat, the trach site was probed and Electronically Signed By: CLEVE CONDON MD 09/23/21 1444 PATIENT NAME: POORNIMA CHOUDHARY OPERATIVE REPORT DATE OF : 85 REPORT #: [id number] PHYSICIAN: CLEVE CONDON MD PCP: JASSI PORTER PA-C REPORT IS CONFIDENTIAL AND NOT TO BE RELEASED WITHOUT AUTHORIZATION [facility] [address] [place], [place] [address] Signed remained patent. A 7 mm flat Arron drain was insinuated into the depths of the wound in her deep thick abdominal pannus and secured to drainage which was working well. The fluid draining appeared to be yellow serous fluid, not esa purulence and certainly not infected in appearance overall. It was secured to the skin with a 2-0 nylon suture, sterilely applied. Gauze dressing was applied. The drain was attached to bulb suction after trimming it to half length. MD MELISSA Sibley/SANAZL /[id number] Copies: ~ Electronically Signed By: CLEVE CONDON MD 09/23/21 1444 PATIENT NAME: KENRICKPOORNIMA HUERTAE OPERATIVE REPORT DATE OF : 85 REPORT #: [id number] PHYSICIAN: CLEVE CONDON MD PCP: JASSI PORTER PA-C REPORT IS CONFIDENTIAL AND NOT TO BE RELEASED WITHOUT AUTHORIZATION
== END ==
LOC: DS 13:08
PROVIDERS: ATTEND Surgery
PROC: 0JPT00Z Removal of Drainage Device from Trunk Subcutaneous Tissue and Fascia, Open Approach (ICD-10-PCS; principal; 2021-09-22)
PROC: 0J9800Z Drainage of Abdomen Subcutaneous Tissue and Fascia with Drainage Device, Open Approach (ICD-10-PCS; 2021-09-22)
DX: T85.628A Displacement of other specified internal prosthetic devices, implants and grafts, initial encounter (principal); T81.41XA Infection following a procedure, superficial incisional surgical site, initial encounter; B95.62 Methicillin resistant Staphylococcus aureus infection as the cause of diseases classified elsewhere; E66.01 Morbid (severe) obesity due to excess calories; F17.210 Nicotine dependence, cigarettes, uncomplicated; Y82.8 Other medical devices associated with adverse incidents; Z90.711 Acquired absence of uterus with remaining cervical stump
CPT/HCPCS: C1729

== ENCOUNTER 2022-07-03 18:39 | Emergency (ER) | payer OTHER ==
[~2022-07-03] VITALS: Ht 167.6 cm; Wt 136.8 kg
[~2022-07-03 18:39] MED LIST changes: +AMOXICILLIN500 MG PO; +CIPRO500 MG PO; +DIFLUCAN200 MG PO; +MULTI VITAMIN1 EACH PO; +MULTI-VITAMIN1 EACH PO; +ONDANSETRON ODT8 MG PO; +PROBIOTIC1 EAC2 PO; +TRANSDERM-SCOP1 EACH TD
[2022-07-03] MEDS ORDERED: HYDROCODON-ACE1 EA10 PO (23:50)
[2022-07-03] MEDS ORDERED: ONDANSETRON ODT8 MG PO (23:50)
== END 2022-07-04 00:19 | disposition home or self-care (01) ==
LOC: ED 18:39
DX: D39.11 Neoplasm of uncertain behavior of right ovary (principal); F17.200 Nicotine dependence, unspecified, uncomplicated; Z88.8 Allergy status to other drugs, medicaments and biological substances; Z79.899 Other long term (current) drug therapy
CPT/HCPCS: 36415; 74177; 76830; 76856; 80053; 81001; 84703; 85025; 96375; 99284-25; A9270; J1170; J2270; J2405; Q9967

== ENCOUNTER 2022-10-27 08:52 | Inpatient (IN) | payer OTHER ==
[~2022-10-27] VITALS: Ht 167.6 cm; Wt 138.6 kg
--- NOTE | ~2022-10-27 | OR ---
[facility] [address] [place] [id number] Draft DATE OF OPERATION: 11/04/2022 SURGEON: Kristi Dill MD CO-SURGEON: Amadeo Ruiz MD. PREOPERATIVE DIAGNOSES: Bilateral pelvic masses, recurrent abdominal wall hernias. POSTOPERATIVE DIAGNOSES: Bilateral pelvic masses, recurrent abdominal wall hernias with extensive intraabdominal adhesions. PROCEDURES: Lysis of adhesions, bilateral salpingo-oophorectomy. ANESTHESIA: General ET. ESTIMATED BLOOD LOSS: 500 mL combined. DRAINS: Christianson catheter. PACKS: None. IMPLANTS: Tisseel in the pelvis. DRAINS: One right lower quadrant in the pelvic area and another on the patient's left side subfascial. INDICATIONS AND FINDINGS: The patient is a 37-year-old female who has previously undergone hysterectomy which was complicated by severe pelvic adhesive disease as well as infection late postoperatively. Since that time, she has had recurrent abdominal wall hernias as well as infections PATIENT NAME: POORNIMA CHOUDHARY OPERATIVE REPORT DATE OF : [birth year] REPORT #: [id number] PHYSICIAN: KRISTI DILL MD PCP: MIKE LAFLEUR REPORT IS CONFIDENTIAL AND NOT TO BE RELEASED WITHOUT AUTHORIZATION [facility] [address] [place] [id number] Draft following these procedures. During the course of her evaluation for her recurrent incisional hernias, she was found to have bilateral very large adnexal masses. These were multiloculated. She was also having significant pain associated with not only her hernias, but also the pelvic masses. At the time of surgery, exam under anesthesia revealed a large mass in the right lower quadrant extending to the umbilicus. There was nothing palpable on the left, though the patient was also 300 pounds and morbidly obese. She had obvious midline hernias as well. Dr. Ruiz completed the hernia repairs as well as the extensive adhesiolysis required. PROCEDURE IN DETAIL: The patient was prepped and draped in the supine position. Dr. Ruiz entered the abdomen and isolated the hernia sacs. The abdomen was then entered and Dr. Ruiz completed the adhesiolysis, which was required and was quite extensive given her prior surgery as well as her history of adhesive disease. The mass on the right side was identified and appeared to be a fairly simple mass. It was densely adherent, however, to not only the bowel, but also of the posterior aspect of the pelvis. It was felt to be the ovary. When the adhesions had been dissected free, the round ligament was identified and was divided and suture ligated. The infundibulopelvic ligament was also identified fairly high on the patient's right side. This was doubly clamped, divided, followed by a free tie of the 0 silk followed by a suture ligature of the 0 silk. Following this, further dissection allowed this to be pulled up and out of the pelvis. It was otherwise free other than the adhesions. During the course of this, it did rupture with some clear greenish tinged fluid as well as some fluid that appeared almost like a chocolate cyst. The remaining adhesions were divided and the specimen excised. There did appear to be a few remaining cyst wall components overlying the sigmoid, but it was not felt safe to continue on with this dissection and increase the risk of further injury, so these were left behind. The patient's left ovary was then identified. It was multiloculated, but approximately 5 cm in diameter. It was adherent to the vaginal cuff as well as to the pelvic sidewall on the left side. The round ligament was identified, divided and suture ligated. The infundibulopelvic ligament was also easily identified and was doubly clamped and divided. This was followed by a free tie of 0 silk followed by suture ligature of 0 silk. This ovary was then freed from the pelvic sidewall and removed intact. Because of the extensive dissection, the decision was made to leave a drain in the right pelvis. This area was irrigated almost continuously and good hemostasis was noted in that area because of the extensive dissection. Tisseel was also sprayed in this area. A drain was then placed by Dr. Ruiz to allow for further drainage of this space. Dr. Ruiz then completed the remainder of the case which was the extensive hernia repair and abdominal wall closure. All sponge and needle counts were correct. The patient did tolerate the procedure well, though was a very long and involved procedure. PATIENT NAME: POORNIMA CHOUDHARY OPERATIVE REPORT DATE OF : [birth year] REPORT #: [id number] PHYSICIAN: KRISTI DILL MD PCP: MIKE LAFLEUR REPORT IS CONFIDENTIAL AND NOT TO BE RELEASED WITHOUT AUTHORIZATION [facility] [address] [place] [id number] Draft MD ISIDORO Stoddard/MODL /[id number] Copies: ~ PATIENT NAME: POORNIMA CHOUDHARY OPERATIVE REPORT DATE OF : [birth year] REPORT #: [id number] PHYSICIAN: KRISTI DILL MD PCP: MIKE LAFLEUR REPORT IS CONFIDENTIAL AND NOT TO BE RELEASED WITHOUT AUTHORIZATION
[2022-10-28] MEDS ORDERED: VARENICLINE TART1 MG PO (15:33)
[2022-11-08] MEDS ORDERED: METRONIDAZOLE250 MG PO (12:04)
[2022-11-08] MEDS ORDERED: AMOX TR-K CLV1 EAC1 PO (12:04)
[2022-11-08] MEDS ORDERED: ACETAMINOPHEN500 MG PO (12:06)
--- NOTE | 2022-11-09 13:46 | OR ---
[facility] [address] [place], [place] [address] Signed DATE OF OPERATION: 11/04/2022 SURGEON: Cleve oCndon MD PREOPERATIVE DIAGNOSES: 1. Complex pelvic mass, giant retroperitoneal and adnexal masses bilaterally. 2. History of abdominal hysterectomy for benign disease. 3. Incarcerated incisional hernia, epigastric area. 4. Incarcerated incisional hernia, mid abdomen. POSTOPERATIVE DIAGNOSES: 1. Complex multilobulated cystic mass from right ovary. 2. Complex cystic mass, left ovary, contiguous with left hydrosalpinx. 3. Incarcerated umbilical hernia, upper abdomen, transverse colon. 4. Incarcerated lower abdominal incisional hernia. 5. Chronically infected fascial layer including isolated granulomatous tissue with gram-negative rods on stat Gram stain. PROCEDURES: 1. Excision of complex cystic mass, left and right ovary and left salpingo-oophorectomy (dictated separately Dr. Kristi Dill). 2. Excision of thickened abdominal fascial scar with excision of infected Prolene mesh. 3. Repair of incarcerated incisional hernia x2 including right-sided components release for medialization of linea alba without mesh (prolonged, complicated, and difficult). 4. Extensive lysis of adhesions CORK MIXER: Fuentes. ANESTHESIA: General endotracheal, Kwesi Argueta CRNA, followed by Cleve Valdez CRNA. DRAINS: 1. Deep pelvic 7 mm Arron drain. 2. Right lateral subcutaneous space 7 mm Arron drain. INDICATION: This morbidly obese (BMI 50) 37-year-old white woman has a complex medical history including incisional hernia repair by me more than a year ago with development of a wound infection requiring prolonged wound care including placement of a wound VAC device. She has had episodic drainage from the area with purulent material. Most recently, she has Electronically Signed By: CLEVE CONDON MD 11/07/22 9527 Electronically Signed By: CLEVE CONDON MD 11/11/22 1350 PATIENT NAME: POORNIMA CHOUDHARY OPERATIVE REPORT DATE OF : [birth year] REPORT #: [id number] PHYSICIAN: CLEVE CONDON MD PCP: MIKE LAFLEUR REPORT IS CONFIDENTIAL AND NOT TO BE RELEASED WITHOUT AUTHORIZATION [facility] [address] [place], [place] [address] Signed had no sign of infection particularly. The patient has developed an incisional hernia in the region of prior hernia repair, which is in the region of the umbilicus and somewhat inferiorly. Additionally, she has an incarcerated hernia with transverse colon in the epigastric area from prior upper midline incision. She has had disabling abdominal pain from the incarcerated hernias but no esa bowel obstruction from them. Qualification for operative intervention has been delayed for approval from the [facility]. A CT scan was repeated, which confirmed incarcerated incisional hernia in the epigastric area with colon as well as small bowel loops inferiorly and an extreme amount of abdominal viscera within the subcutaneous space. Incidentally noted was a complex pelvic cyst apparently emanating from the right ovary, but cystic changes from the left adnexa as well. The patient has undergone hysterectomy by Dr. Dill for benign disease in the past. She is admitted at this time to undergo excision of complex pelvic cyst and bilateral ovariectomy and salpingectomy as appropriate primarily under the direction of Dr. Dill and secondarily repair of incarcerated incisional hernias. Risk of bleeding, infection, recurrence, and other unforeseen complications related to hernia repair and cystic disease has been reviewed in detail and she understands and wished to proceed. The operative details for complex cyst repair will be under the dictation of Dr. Dill. We both participated in the operation of pelvic surgery as well as abdominal wall reconstruction, it is noted. At conclusion of the rather lengthy pelvic cystectomy, bilateral salpingo-oophorectomy, the laparotomy sponge count was off by one. Fluoroscopy was used to locate the sponge in the upper abdomen. It was retrieved and the sponge count at the conclusion of the pelvic operation was then complete. The second operation of abdominal wall reconstruction was then undertaken with the abdomen still open of course. I had made the initial incision of the midline extending down through the midline fascia cephalad to the incarcerated hernia at the umbilicus at the outset of the operation. Dissection predominantly included blunt electrocautery dissection freeing the small bowel from the overlying hernia sac and ultimately reducing intraabdominal contents. Extensive lysis of adhesions was undertaken to provide safe exposure to the extensive pelvic cystic disease. The hernia sac at the umbilicus measured approximately 12 x 12 cm. It was excised fully from the fascial wall. The area in the region of the umbilicus had a thick 3.5 to 4 cm segment of dense fascia notably related to chronic wound care using a wound VAC device previously. As the intra-abdominal cavity had been completely freed up with blunt electrocautery dissection, close inspection of the fascial edges showed a cavity that had been transected and upon opening the fascia it had chronic granulation tissue. This was Gram stained and cultured. Wide excision of the associated mesh and the fascia was Electronically Signed By: CLEVE CONDON MD 11/07/22 7455 Electronically Signed By: CLEVE CONDON MD 11/11/22 9788 PATIENT NAME: POORNIMA CHOUDHARY OPERATIVE REPORT DATE OF : [birth year] REPORT #: [id number] PHYSICIAN: CLEVE CONDON MD PCP: MIKE LAFLEUR REPORT IS CONFIDENTIAL AND NOT TO BE RELEASED WITHOUT AUTHORIZATION [facility] [address] [place], [place] [address] Signed undertaken showing infected tissue with the previously implanted prolene mesh which was otherwise firmly adherent to the thick abdominal fascia. Complete excision on the left and right sides of the midline fascia was undertaken of the mesh and associated thickened fascial tissue. The midline fascia did remain reasonably alvarado and although she is quite morbidly obese, there was no significant attenuation of the fascia proper. It was initially deemed most beneficial that implantation of prolene mesh in the properitoneal ( submuscular) space would be most effective for reconstruction. The peritoneum was thus circumferentially freed with blunt and electrocautery dissection superiorly and inferiorly extending laterally at least 6 cm to provide a retromuscular implantation of mesh Once the peritoneum was freed circumferentially, it was reapproximated with running 2-0 Vicryl suture. Beneath that of course was omentum that lay completely over the abdominal contents. A drain that had been placed in the pelvis previously was well out of this plane. Irrigation was undertaken. The fascia was freed circumferentially approximately 6-8 cm, anticipating implantation of Prolene mesh in an underlay technique, but over the peritoneum. Anna clamps were used to grasp the fascia. Although it could approximate to the midline, it would not be completely tension free and therefore a component separation reconstruction was deemed advisable at least on one side, if not both. The subcutaneous tissue was freed from the overlying fascia ultimately identifying the lateral aspect of the right rectus abdominis. Preservation of penetrating vascular arcades was maintained. Electrocautery was used to incise the external oblique fascia on the right side extending from the costal margin inferiorly. This allowed for a very relaxed linea alba on the right side to allow for reapproximation. By this point and prepared completely for implantation of Prolene mesh in the submuscular space, the stat Gram stain results were returned. The Gram stain showed many red cells and numerous gram-negative rods, consistent with an entombed infection within the thickened fascia from prior infection and prolonged wound vac treatment. No doubt this has accounted for episodic necessitation from the infra umbilical wound previously. Mindful of the infective potential of implanting mesh in this setting it was deemed inadvisable to do so. The remaining fascia with remnants of Prolene mesh were thus excised completely in the area in question in the midportion and inferiorly. Not mentioned previously was the extension of the midline fascia cephalad to allow for reduction of completely a tightly incarcerated segment of transverse colon. Following reduction of the transverse colon and replacement into the peritoneal cavity and covereing with the peritoneum this separate defect was made to be in continuity with the inferior fascial defect but dividing the fascial bridge between the two hernia defects. Electronically Signed By: CLEVE CONDON MD 11/07/228 Electronically Signed By: CLEVE CONDON MD 11/11/22 1350 PATIENT NAME: POORNIMA CHOUDHARY OPERATIVE REPORT DATE OF : [birth year] REPORT #: [id number] PHYSICIAN: CLEVE CONDON MD PCP: MIKE LAFLEUR REPORT IS CONFIDENTIAL AND NOT TO BE RELEASED WITHOUT AUTHORIZATION [address] [address] Signed Since implantation of Prolene mesh was deemed inadvisable, the midline fascia was reapproximated with running bidirectional #1 PDS suture, secured in the midline. The unilateral right componant release allowed a tension free reconstruction of the midline fascia. Irrigation was undertaken in subcutaneous space. There remained no visible areas of Prolene mesh from the previous repair. Through a right lower quadrant stab incision, a 7 mm flat Raron drain was placed in the lateral aspect of the subcutaneous space extending the tip of the drain tube to the midline as well. Armando's layer was reapproximated with interrupted 2-0 Vicryl suture. The skin was then closed with running subcuticular 3-0 Vicryl. Steri-Strips were applied (full-length half an inch) to the skin. An Acticoat silver sponge dressing was applied to the midline and to the drain sites as well. The operation was prolonged, complicated, and difficult lasting in total from 9:00 a.m. to approximately 3:35 p.m. MD MELISSA Sibley/SANAZL /[id number] cc: Kristi Dill MD Copies: KRISTI DILL MD ~ Electronically Signed By: CLEVE CONDON MD 11/07/22 2047 Electronically Signed By: CLEVE CONDON MD 11/11/22 1350 PATIENT NAME: POORNIMA CHOUDHARY OPERATIVE REPORT DATE OF : [birth year] REPORT #: [id number] PHYSICIAN: CLEVE CONDON MD PCP: MIKE LAFLEUR REPORT IS CONFIDENTIAL AND NOT TO BE RELEASED WITHOUT AUTHORIZATION
--- NOTE | 2022-11-10 20:49 | DS ---
[facility] [address] [place], [place] [address] Signed ADMISSION DATE: 11/04/2022 DISCHARGE DATE: 11/08/2022 REASON FOR ADMISSION: This morbidly obese BMI of 50, 37-year-old white woman is admitted to undergo excision complex pelvic mass associated with both ovaries as well as repair of two separate incarcerated incisional hernias of the midline. She has a complex past medical history and the reader is referred to admission history and physical for that purpose. PERTINENT PHYSICAL EXAMINATION: GENERAL: Showed an extremely obese white woman who look to be without sign of toxicity. VITAL SIGNS: Temperature at admission was 98, blood pressure 154/86, pulse 95. NECK: Showed no thyromegaly or cervical adenopathy. CHEST: Clear without wheeze or rhonchi. HEART: Regular without murmur. ABDOMEN: Shows massive abdominal pannus. There is a dry and well-healed incision along the midline extending from below the xiphoid to below the umbilicus. There is a nonreducible hernia in the epigastric area as well as attenuation of skin thickening and chronic dermatitis in the region of the umbilical area where another non-reducible hernia is noted. There is no sign of wound drainage. HOSPITAL COURSE: On November 04, 2022, she underwent two operations. The 1st included exploration of the abdomen with extensive lysis of adhesions and excision of complex ovarian cystic disease of the pelvis, both on right and left side. This included bilateral salpingo-oophorectomy. The patient has had a prior hysterectomy. A drain was placed as well. Additionally, she had abdominal wall reconstruction done with reduction of an incarcerated incisional hernia in the epigastric area (transverse colon) as well as reduction of herniated small bowel through a periumbilical fascial defect. She was noted to have a pocket of granulation tissue within the dense scar tissue of the midline which on Gram stain showed gram-negative rods as well as red cells. On that basis, this inflammatory area (chronic) and portion of mesh was excised. Component separation technique on the right side was undertaken allowing for medialization of the linea alba. A pelvic drain was placed as was a subcutaneous drain in the right lateral aspect. She was managed in the postoperative period initially in the intensive care unit given the extent of operation, which was nearly 7 hours. She was noted to have only dark drainage of both the drains initially but by the evening of operation had bright red drainage and progressive anemia. She was transfused with 2 units of packed red cells and treated with TXA, which appeared to improve her drainage. Notably, the bloody drainage was from the intra-abdominal component, not the subcutaneous space. Electronically Signed By: CLEVE CONDON MD 11/10/229 PATIENT NAME: POORNIMA CHOUDHARY DISCHARGE SUMMARY DATE OF : [birth year] REPORT #: [id number] PHYSICIAN: CLEVE CONDON MD PCP: MIKE LAFLEUR REPORT IS CONFIDENTIAL AND NOT TO BE RELEASED WITHOUT AUTHORIZATION [address] [address] Signed Two additional units were transfused for a hematocrit drifting lower but she stabilized and hematocrit at the time of discharge was 28. She made use of an abdominal binder. It is recalled that she had nasal swabs prior to operation, which were negative for MRSA and has been using Hibiclens soap at home prior to operation. At the time of discharge, the intra-abdominal/pelvic drain has been removed and the remaining drain is right lateral abdominal wall. The wound did show some leakage of serous fluid in the inferior aspect, which will be addressed by plain gauze dressing changes. Steri-Strips had been used to support the upper aspect of the midline incision as well as OpSite. It is anticipated that she will see me back in the office in the coming week. We will assess progress regarding her seroma fluid drainage. The subcutaneous tissue remains in place should additionally drain the subcutaneous space of the midline incision. It is noted that she did not have implantation of Prolene mesh based on the Gram stain of the wound and products of debridement of the wound. If it should occur, the wound failure progresses, then a wound VAC dressing will be considered. DISCHARGE MEDICATIONS: Will include: 1. Tylenol 500 mg two tablets p.o. q. 6 hours p.r.n. pain, #90, refill 1. 2. Augmentin 875/125 one p.o. b.i.d. with meals, #30. 3. Flagyl 250 mg two tablets t.i.d. with meals, avoiding alcohol, quantity #56. 4. Sertraline 100 mg two tablets p.o. at bedtime. 5. Amitriptyline 25 mg three tablets p.o. at bedtime. 6. Omeprazole 40 mg p.o. daily. 7. Naproxen sodium 220 mg tablets, two tablets p.o. q.12 hours as needed for pain. 8. Multivitamin one p.o. daily. 9. Chantix (varenicline tartrate) 1 mg 1 tablet p.o. b.i.d. DISCHARGE DIAGNOSES: 1. Complex pelvic cystic mass related to both right and left ovaries, status post extensive dissection, excision of cyst and bilateral salpingo-oophorectomy. 2. Complex abdominal wall reconstruction related to incarcerated incisional hernias of the midline without implantation of mesh. 3. Debridement of midline fascia with locus of persistent infected tissue (gram-negative rods on Gram stain). 4. Morbid obesity, BMI of 50. Electronically Signed By: CLEVE CONDON MD 11/10/22 8163 PATIENT NAME: POORNIMA CHOUDHARY DISCHARGE SUMMARY DATE OF : [birth year] REPORT #: [id number] PHYSICIAN: CLEVE CONDON MD PCP: MIKE LAFLEUR REPORT IS CONFIDENTIAL AND NOT TO BE RELEASED WITHOUT AUTHORIZATION [facility] [address] [place], [place] [address] Signed 5. Distant history of opiate and non-opiate substance abuse. 6. Distant history of hysterectomy. 7. History of cholecystectomy. 8. History of incisional hernia repair with wound infection and wound failure. FOLLOWUP PLAN: She will call on Wednesday (tomorrow) and organize for followup visit with me earlier this week to assess wound and wound progress. If necessary, wound VAC dressing will be initiated depending on findings. MD MELISSA Sibley/LAWRENCE /[id number] cc: KRYSTEN Paredes MD Copies: JUDITH ESCOBEDO MD ~ Electronically Signed By: CLEVE CONDON MD 11/10/22 2049 PATIENT NAME: POORNIMA CHOUDHARY DISCHARGE SUMMARY DATE OF : [birth year] REPORT #: [id number] PHYSICIAN: CLEVE CONDON MD PCP: MIKE LAFLEUR REPORT IS CONFIDENTIAL AND NOT TO BE RELEASED WITHOUT AUTHORIZATION
--- NOTE | 2022-11-12 10:10 | PATH ---
[facility] [address] [place], [place] [address] Signed SPECIMEN(S): A ABDOMINAL MESH SPECIMEN SOURCE: A. ABDOMINAL MESH CLINICAL HISTORY: Exploratory lap. Excision of mass and repair of incisional hernia; portion of infected mesh. FINAL PATHOLOGIC DIAGNOSIS: Abdominal mesh: - Dense fibroconnective tissue with acute and chronic inflammation and polarizable foreign body material surrounded by multinucleated histiocytes, consistent with features seen in mesh material. TWK:[id number] MICROSCOPIC EXAMINATION: Histologic sections of all submitted blocks are examined by light microscopy. These findings, together with the gross examination, support the pathologic diagnosis. GROSS DESCRIPTION: The specimen, labeled and designated "Inder, abdominal mesh," is received in formalin and consists of multiple pieces of yellow-brown to dennis soft tissue and mesh material (12.5 x 12.5 x 5.2 cm). Sectioning of the tissue reveals yellow-dennis fatty to dennis-pink soft tissue and dennis mesh material. Corporate Event Planner sections are submitted in cassettes A1-A2. AC (under the direct supervision of a pathologist) The Gross Description was prepared using a voice recognition system. The report was reviewed for accuracy; however, sound-alike word errors, addition and/or deletions may occur. If there is any question about this report, please contact Client Services. PERFORMING LABORATORY: The technical component was performed by [facility], [address] [place] [id number] (CLIA# [id number]). Professional interpretation was performed by [facility], [facility], [address] [place] [id number] (CLIA# [id number]). Diagnostician: Homero Boyer MD Pathologist PATIENT NAME: POORNIMA CHOUDHARY PATHOLOGY DATE OF : [birth year] REPORT #: [id number] PHYSICIAN: RAJAN PATHOLOGY PCP: MIKE LAFLEUR REPORT IS CONFIDENTIAL AND NOT TO BE RELEASED WITHOUT AUTHORIZATION [facility] [address] [place] [id number] Signed Electronically Signed 11/12/2022 Copies: ~ PATIENT NAME: POORNIMA CHOUDHARY PATHOLOGY DATE OF : [birth year] REPORT #: [id number] PHYSICIAN: RAJAN PATHOLOGY PCP: MIKE LAFLEUR REPORT IS CONFIDENTIAL AND NOT TO BE RELEASED WITHOUT AUTHORIZATION
--- NOTE | 2022-11-12 16:18 | PATH ---
[facility] [address] [place], [place] [address] Signed SPECIMEN(S): A GIANT PELVIC CYST RIGHT SPECIMEN(S): B LEFT OVARY, TUBE AND CYST SPECIMEN(S): C PELVIC LYMPH NODE SPECIMEN(S): D HERNIA SAC SPECIMEN(S): E WOUND SINUS TRACT, ABDOMEN SPECIMEN SOURCE: A. GIANT PELVIC CYST RIGHT B. LEFT OVARY, TUBE AND CYST C. PELVIC LYMPH NODE D. HERNIA SAC E. WOUND SINUS TRACT, ABDOMEN CLINICAL HISTORY: Bilateral ovarian cysts, right pelvic mass, abdominal wall hernia. FINAL PATHOLOGIC DIAGNOSIS: A. Giant pelvic cyst, right: - Benign hemorrhagic and cystic ovary. - Portion of benign oviduct. - Negative for atypical features. - See comment. B. Left ovary, tube and cyst: - Benign ovary with hemorrhagic corpus luteum cyst and multiple benign cystic follicles. - Features focally suspicious for endometriosis. - Benign vasculature, negative for unequivocal oviduct. C. Pelvic lymph node: - Portion of benign lymph node and soft tissue, negative for atypical features or malignancy. D. Hernia sac: - Benign membranous soft tissue. - Negative for atypical features. E. Wound sinus tract, abdomen: - Benign soft tissue with focal acute and chronic inflammation and abscess, consistent with clinical sinus tract. COMMENT: The exact cause of the hemorrhagic and cystic ovary is not clear as the cyst lining is completely denuded. There is no evidence of atypical features or malignancy on specimen A. PATIENT NAME: POORNIMA CHOUDHARY PATHOLOGY DATE OF : 85 REPORT #: [id number] PHYSICIAN: RAJAN PATHOLOGY PCP: MIKE LAFLEUR REPORT IS CONFIDENTIAL AND NOT TO BE RELEASED WITHOUT AUTHORIZATION [facility] [address] [place], [place] [address] Signed JVR:jacqueline:[id number] MICROSCOPIC EXAMINATION: Histologic sections of all submitted blocks are examined by light microscopy. These findings, together with the gross examination, support the pathologic diagnosis. GROSS DESCRIPTION: A. The specimen, labeled and designated "Inder, giant pelvic cyst, right," is received in formalin and consists of disrupted portion of dennis-pink soft and membranous tissue (12.5 x 6.5 x 6.0 cm). The specimen is sectioned to reveal a variegated yellow-dennis to red-brown smooth to roughened cyst wall ranging in thickness from 0.1-1.6 cm). No papillary excrescences are grossly identified. Maintenance Person sections are submitted in cassette A1-A6. B. The specimen, labeled and designated "Inder, left ovary tube and cyst," is received in formalin and consists of 1 intact multiloculated dennis-pink to red-brown cystic ovary (125 g, 8.5 x 7.5 x 5.0 cm) with possible distorted segment of fallopian tube (4.0 cm in length by 0.5 cm in diameter). The specimen is inked blue and serially sectioned to reveal a dennis-pink cut surface of the possible fallopian tube with pinpoint lumen, and a dennis to red-brown multiloculated cystic cut surface of the remainder of the specimen with dennis-pink smooth cyst damian and clear serous fluid. No papillary excrescences are grossly identified. Maintenance Person sections are submitted. Cassette Summary: (B1-B2) possible fallopian tube (B3-B6) ovary with cyst Additional tissue is submitted in cassettes B7-B8 per Dr. Galeana's request. FB: C. The specimen, labeled and designated "Inder, pelvic lymph node," is received in formalin and consists of 1 yellow to red-brown pieces of tissue (1.2 x 0.8 x 0.5 cm). The specimen is bisected and submitted entirely in cassette C1. D. The specimen, labeled and designated "Inder, hernia sac, abdominal," is received in formalin and consists of a portion of dennis to red-brown soft and membranous tissue (25.5 x 8.0 x 2.8 cm). The tissue is sectioned to reveal dennis-pink soft cut surfaces. Maintenance Person sections are submitted in cassette D1. E. The specimen, labeled and designated "Inder, wound, sinus tract, abdomen," is PATIENT NAME: POORNIMA CHOUDHARY PATHOLOGY DATE OF : 85 REPORT #: [id number] PHYSICIAN: RAJAN HERMAN PCP: MIKE LAFLEUR REPORT IS CONFIDENTIAL AND NOT TO BE RELEASED WITHOUT AUTHORIZATION [address] [address] Signed received in formalin and consists of a portion of white-dennis brown-dennis fibrous tissue (4.0 x 1.8 x 1.4 cm). The tissue is sectioned to reveal white-dennis to red-brown soft cut surfaces. Maintenance Person sections are submitted in cassette E1. AC (under the direct supervision of a pathologist) The Gross Description was prepared using a voice recognition system. The report was reviewed for accuracy; however, sound-alike word errors, addition and/or deletions may occur. If there is any question about this report, please contact Client Services. PERFORMING LABORATORY: The technical component was performed by [facility], [address] [place] [id number] (CLIA# [id number]). Professional interpretation was performed by [facility], [address] [place] [id number] (CLIA#: [id number]). Diagnostician: Melvin Galeana MD Pathologist Electronically Signed 11/12/2022 Copies: ~ PATIENT NAME: POORNIMA CHOUDHARY PATHOLOGY DATE OF : [birth year] REPORT #: [id number] PHYSICIAN: RAJAN HERMAN PCP: MIKE LAFLEUR REPORT IS CONFIDENTIAL AND NOT TO BE RELEASED WITHOUT AUTHORIZATION
== END 2022-11-08 12:45 | disposition home or self-care (01) | DRG 336 ==
LOC: DSVR 11-04 07:04 → CCU 11-04 07:04 → MS 11-04 08:45 → CCU 11-04 15:07 → MS 11-07 12:40
PROVIDERS: ADMIT Obstetrics & Gynecology; ATTEND Surgery
PROC: 0UT70ZZ Resection of Bilateral Fallopian Tubes, Open Approach (ICD-10-PCS; 2022-11-04)
PROC: 30233N1 Transfusion of Nonautologous Red Blood Cells into Peripheral Vein, Percutaneous Approach (ICD-10-PCS; 2022-11-04)
PROC: 0WQF0ZZ Repair Abdominal Wall, Open Approach (ICD-10-PCS; 2022-11-04)
PROC: 0WQF0ZZ Repair Abdominal Wall, Open Approach (ICD-10-PCS; 2022-11-04)
PROC: 0WQF0ZZ Repair Abdominal Wall, Open Approach (ICD-10-PCS; 2022-11-04)
PROC: 0WPF0JZ Removal of Synthetic Substitute from Abdominal Wall, Open Approach (ICD-10-PCS; 2022-11-04)
PROC: 0DNW0ZZ Release Peritoneum, Open Approach (ICD-10-PCS; principal; 2022-11-04 08:45)
PROC: 0UT20ZZ Resection of Bilateral Ovaries, Open Approach (ICD-10-PCS; 2022-11-04 08:45)
DX: K43.0 Incisional hernia with obstruction, without gangrene (principal); Z68.43 Body mass index [BMI] 50.0-59.9, adult; N83.291 Other ovarian cyst, right side; K45.0 Other specified abdominal hernia with obstruction, without gangrene; E66.01 Morbid (severe) obesity due to excess calories; N83.292 Other ovarian cyst, left side; D64.9 Anemia, unspecified; Z90.710 Acquired absence of both cervix and uterus; Z90.49 Acquired absence of other specified parts of digestive tract
CPT/HCPCS: 00840; 36415; 36430; 76000; 80048; 80053; 82310; 85014; 85025; 85027; 85060; 86304; 86850; 86900; 86901; 86922; 87070; 87075; 87186; 87205; 88302; 88304; 88305; 88307; A9270; J0131; J0690; J0780; J1100; J1170; J1644; J1650; J1885; J2270; J2405; J2550; J2704; J2765; J3010; J7121; P9016; U0003

== ENCOUNTER 2022-11-25 08:12 | Observation (INO) | payer OTHER ==
[~2022-11-25] VITALS: Ht 167.6 cm; Wt 133.0 kg
[~2022-11-25 08:12] MED LIST changes: +AMOX TR-K CLV1 EAC1 PO; +METRONIDAZOLE250 MG PO; +VARENICLINE TART1 MG PO
--- NOTE | 2022-11-25 14:30 | NUR ---
PT. ARRIVED FROM ER VIA STRETCHER, REPORT RECEIVED AND SKIN ASSESSMENT BY 2 RNS COMPLETED. INTAKE COMPLETED. WOUND VAC INTACT AND FUNCTIONING TO MIDLINE WOUND SITE. MEDS ADMIN. ANTIQUE FURNITURE REPAIRER IN THE ROOM. PT. BROUGHT ICE WATER. DOMENICA EMPTIED OF 100ML DARK SANGUINOUS DRAINAGE. CALL LIGHT IN REACH.
--- NOTE | 2022-11-25 15:00 | NUR ---
Spoke with Ayala. She has returned following recent surgery. Her DOMENICA drain began filling with blood. observing to see what her need will be. Per pt she cont. to live at home with her mom and two children, 13 and 8. She denies needs. Mom drives her. Pt plans on dc to home when cleared medically.
--- NOTE | 2022-11-25 16:43 | NUR ---
ROUNDING ON PT. SHE IS ON PHONE WITH CHILDREN AND DENIES NEEDS. DOMENICA OUTPUT HAS SLOWED AND SMALL AMOUNT OF SANGUINOUS DRAINAGE
--- NOTE | 2022-11-25 21:08 | NUR ---
NOTIFIED DR CONDON OF PT H&H RESULTS NO NEW ORDERS GIVEN.
--- NOTE | 2022-11-25 22:07 | NUR ---
PT SITTING IN BED WATCHING TV. RESP EVEN ET UNLABORED ABLE TO MAKE NEEDS KNOWN. DOMENICA DRAIN PUT OUT 30CC OF SEROSANGUINEOUS FLUID. MD NOTIFIED OF OUTPUT AND LAB RESULTS WITH NO NEW ORDERS GIVEN. PT HAD AN EPISODE OF VOMITING STATED NOT SURE WHAT HAPPENED REFUSED NAUSEAU MEDS. NO ACUTE DISTRESS AT THIS TIME.
--- NOTE | 2022-11-26 06:05 | NUR ---
PT RESTED QUIETLY THROUGHOUT THE NIGHT. DOMENICA DRAIN PUT OUT TOTAL OF 70CC THIS SHIFT. PT DRESSING TO WOUND VAC SEALED. NO ACUTE DISTRESS NOTED AT THIS TIME.
--- NOTE | 2022-11-26 07:50 | NUR ---
Spoke with Ayala. States she is better, less drainage. No needs. No change in plan for CM.
[2022-11-26] MEDS ORDERED: LISINOPRIL10 MG PO (08:51)
--- NOTE | 2022-11-26 09:00 | NUR ---
REPORT RECEIVED FROM NIGHT RN AND PT CARE RESUMED. PT IS ALERT AND ORIENTED TO ALL. DENIES PAIN. DOMENICA DRAIN PATENT AND DRAINING DARK SANGUINOUS DRAINAGE. ADMIN MEDS AND ASSESSMENT COMPLETED. PT. REPORTS SHE FORGOT WOUND VAC CORK SLABS SAWYER AND BATTERY OVERNIGHT. DAY SURGERY CONTACTED FOR CORK SLABS SAWYER.
--- NOTE | 2022-11-26 10:24 | NUR ---
WOUND VAC DRESSING CHANGED AND PT. TOLERATED WELL. WOUND BED IS RED AND GRANULATED THROUGHOUT WITH OUT TUNNELING OR UNDERMINING. MEASURES 4.9CM X 2.2CM X 1.9CM. WOUND CLEANSED AND CLEANED. ADAPTIC PLACED IN WOUND BED, WOUND IS DRY AND PREVIOUS FOAM WAS ADHERED TO BED. PERIWOUND DRAPED WITH OPSITE AND FOAM PLACED IN BED. OPSITE AND WOUND VAC ATTACHED AND NO LEAKS NOTED. SKIN BARRIER APPLED TO ABDOMEN, THEN DUODERM AND WOUND VAC TUBE SECURED OVER DUODERM WITH OPSITE.
[2022-11-26] MEDS ORDERED: PROBIOTIC1 EAC1 PO (11:18)
--- NOTE | 2022-11-26 11:19 | NUR ---
MED REC COMPLETE
--- NOTE | 2022-11-26 12:31 | NUR ---
PT ALERT, ORIENTED AND SITTING ON BED. PT SMILED AND INFORMED ME SHE IS TO DC LATER TODAY FOLLOWING AN US. PT PLEASANT, FRUSTRATED AT HAVING SO MANY HEALTH CHALLENGES LATELY, BUT DEALING APPROPRIATELY. GAVE G.POST AND BLESSING
--- NOTE | 2022-11-28 10:24 | HP ---
[facility] [address] [place], [place] [address] Signed ADMISSION DATE: 11/25/2022 REASON FOR ADMISSION: Draining rectus sheath hematoma, history of repair of complex incisional hernia with right-sided components release and concomitant excision of giant pelvic mass including bilateral salpingo-oophorectomy (Kristina Dill MD). HISTORY: This 37-year-old morbidly obese white woman is 127 kg and a BMI of 45.2. She underwent on November 06, 2022, two operations; I performed reduction of an incarcerated incisional hernia with excision of previous mesh (unrelated to the actual incarcerated hernia itself as well as lysis of adhesions. Dr. Kristina Dill whom I assisted performed a complex pelvic cyst excision with bilateral salpingo-oophorectomy. The patient has history of total abdominal hysterectomy in 2014 with preservation of ovaries bilaterally. The operation performed on November 04 was challenging on the basis of her significant abdominal obesity and noted for postoperative bleeding which responded to TXA. A right-sided subcutaneous drain had been placed independently of a pelvic drain that had also been placed at time of operation. The pelvic drain was that which showed the bleeding. The pelvic drain has since been removed. The patient did have seroma formation in the lower aspect of the incision and last week I initiated wound VAC therapy which has allowed for good healing of the lower aspect of the incision with excellent granulation. The patient has noted for the past 24 hours "purple drainage" from the right-sided abdominal drain. I had intended to see her in the office about that today, but she directly presented to the emergency room at the insistence of her mother. She was then evaluated by Dr. Cleve Torres where she was found to have fair amount of drainage of dark venous bloody fluid, at least 500 mL was noted to be draining. The patient at presentation had a heart rate of 112, a blood pressure of 168/103. She was given a liter of IV fluids. Lab studies were performed which showed a hematocrit of 27.5, a white count of 11.7. Her hematocrit was at that level when she was discharged from the hospital recently. The patient has no complaints of abdominal pain, shortness of breath, or lightheadedness at this point. A CT scan was performed today which shows mixed density hematoma in the anterior Electronically Signed By: CLEVE CONDON MD 11/28/22 [facility] PATIENT NAME: POORNIMA CHOUDHARY HISTORY AND PHYSICAL DATE OF : 85 REPORT #: [id number] PHYSICIAN: CLEVE CONDON MD PCP: MIKE LAFLEUR-Johnnie REPORT IS CONFIDENTIAL AND NOT TO BE RELEASED WITHOUT AUTHORIZATION [facility] [address] [place], [place] [address] Signed abdominal wall of the operative site measuring 15 x 20 cm without acute vascular extravasation. My review shows it certainly to be extraperitoneal. There was interval development of some right hydronephrosis with the right ureter dilated to the level of the new soft tissue density and the right retroperitoneum measuring 3.3 cm maximum dimension. There was an interval increase in retroperitoneal lymphadenopathy with short axis dimension of lymph nodes of 11 mm. There was interval removal of ovarian cystic lesions and postoperative changes of the pelvis. There was no evidence of active extravasation of blood. REVIEW OF SYSTEMS: Denies any shortness of breath or chest pain. She has had no actual bright blood from the drain at all. She has had no abdominal pain. PHYSICAL EXAMINATION: GENERAL: A morbidly obese white woman who does not look to be acutely distressed at this time. Her mother is present as well. NECK: Trachea is midline. CHEST: Shows normal respiratory excursion. HEART: Regular. ABDOMEN: With an enormous abdominal pannus. Incision is healing well. A wound VAC has been placed in the lower aspect. Right-sided Arron drain shows drainage of dark old blood type fluid. There is no sign of bright blood or active bleeding that can be seen. EXTREMITIES: Show no clubbing, cyanosis, or edema. ASSESSMENT: I suspect that the patient has postoperative hypotension at her original operation was related to development of a rectus sheath hematoma. Transfusion therapy was initiated and TXA given at that time. I do believe at this point she has gone from a fair amount of clotted blood in the rectus sheath area from free-flowing blood, subsequently to clot, and now lysis and dissolution of the clotting material itself. I do not see signs of active bleeding. There is no extravasation and she has no pain or hypotension. Nevertheless, with her hematocrit of 27 (stable from discharge), I think it would be most prudent to admit for observation, monitor her output of the drain and her hematocrit. If a falling hematocrit is noted, then of course the consideration of active bleeding and possible exploration or ligation of the inferior epigastric artery feeding the hematoma would be appropriate. I reviewed this with the patient, her mother, Dr. Torres and all agree. As regard to the right-sided hydronephrosis, further investigation of that may be advisable. It is not the priority and she has no symptoms related to it at this time. Electronically Signed By: CLEVE CONDON MD 11/28/22 1024 PATIENT NAME: POORNIMA CHOUDHARY HISTORY AND PHYSICAL DATE OF : [birth year] REPORT #: [id number] PHYSICIAN: CLEVE CONDON MD PCP: MIKE LAFLEUR REPORT IS CONFIDENTIAL AND NOT TO BE RELEASED WITHOUT AUTHORIZATION [facility] [address] [place] [address] Signed The possibility of mass effect of pelvic lymphadenopathy, which is described or less likely the hematoma itself is also a consideration. MD MELISSA Sibley/SANAZL /[id number] cc: MD Cleve Stoddard MD Copies: JUDITH DILL MD ~ Electronically Signed By: CLEVE CONDON MD 11/28/22 1024 PATIENT NAME: POORNIMA CHOUDHARY HISTORY AND PHYSICAL DATE OF : [birth year] REPORT #: [id number] PHYSICIAN: CLEVE CONDON MD PCP: MIKE LAFLEUR REPORT IS CONFIDENTIAL AND NOT TO BE RELEASED WITHOUT AUTHORIZATION
== END 2022-11-26 13:45 | disposition home or self-care (01) ==
LOC: ED 08:12 → MS 08:14
PROVIDERS: ADMIT Surgery; ATTEND Surgery
DX: K91.841 Postprocedural hemorrhage of a digestive system organ or structure following other procedure (principal); Z91.013 Allergy to seafood; Z88.8 Allergy status to other drugs, medicaments and biological substances; N13.30 Unspecified hydronephrosis; E66.01 Morbid (severe) obesity due to excess calories
CPT/HCPCS: 36415; 74177; 76775; 80053; 85025; 86850; 86900; 86901; A9270; C9803; G0378; J7030; J7121; Q9967; U0003

== ENCOUNTER → 2023-04-24 | Emergency (ER) | payer OTHER ==
[~2023-04-24] VITALS: Ht 167.6 cm; Wt 130.5 kg
[~2023-04-24] MED LIST changes: +LISINOPRIL10 MG PO; +PROBIOTIC1 EAC1 PO
--- OUTSIDE RECORDS SUMMARY | ~2023-04-24 | XMS | Continuity of Care Document ---
Demographics + + + | Address | 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 | (no reaction) | (no severity) | | [facility] | | | + + + + + + | (no date) | Norelgestromin | [facility] | (no reaction) | (no severity) | | [facility] | | | + + + + + + | (no date) | Anaphylaxis | [facility] | (no reaction) | (no severity) | | | [facility] | | | + + + + + + | (no date) | Estradiol | [facility] | (no reaction) | (no severity) | | | [facility] | | | + + + + + + | (no date) | estradiol | [facility] | (no reaction) | (no severity) | | | | [facility] | | | + + + + + + | (no date) | Ethinyl | [facility] | (no reaction) | (no severity) | | | estradiol | [facility] | | | + + + + + + | (no date) | Ethinyl | [facility] | (no reaction) | (no severity) | | | estradiol | [facility] | | | + + + + + + | (no date) | Estradiol | [facility] | (no reaction) | (no severity) | | | [facility] | | | + + + + + + | (no date) | Norelgestromin | [facility] | (no reaction) | (no severity) | | | | [facility] | | | + + + + + + Encounters No information. Functional Status No information. Immunizations + + + + | date | description | facility | + + + + | 2022-07-04 00:00 | Influenza, Injectable, | [facility] | | | Quadrivalent | | + + + + | 2022-11-08 00:00 | Influenza, Injectable, | [facility] | | | Quadrivalent | | + + + + | 2022-11-26 00:00 | Influenza, Injectable, | [facility] | | | Quadrivalent | | + + + + | 2022-12-01 00:00 | Influenza, Injectable, | [facility] | | | Quadrivalent | | + + + + | 2022-11-08 00:00 | No vaccine administered | [facility] | + + + + | 2022-11-26 00:00 | No vaccine administered | [facility] | + + + + Medications + + + + | date | description | facility | + + + + | 2022-07-04 00:00 | ONDANSETRON HCL | [facility] | + + + + | 2022-11-08 00:00 | ONDANSETRON HCL | [facility] | + + + + | 2022-11-26 00:00 | ONDANSETRON HCL | [facility] | + + + + | 2022-12-01 00:00 | ONDANSETRON HCL | [facility] | + + + + | 2022-11-08 00:00 | ondansetron 4 MG Oral | [facility] | | | Tablet [Zofran] | | + + + + | 2022-11-26 00:00 | ondansetron 4 MG Oral | [facility] | | | Tablet [Zofran] | | + + + + | 2015-07-08 00:00 | OXYCODONE | [facility] | | | HCL/ACETAMINOPHEN | | + + + + | 2015-07-08 00:00 | OXYCODONE | [facility] | | | HCL/ACETAMINOPHEN | | + + + + | 2015-07-08 00:00 | acetaminophen 325 MG / | [facility] | | | oxycodone hydrochloride 5 | | | | MG Oral Tab | | + + + + | 2022-07-04 00:00 | OXYCODONE | [facility] | | | HCL/ACETAMINOPHEN | | + + + + | 2022-11-08 00:00 | OXYCODONE | [facility] | | | HCL/ACETAMINOPHEN | | + + + + | 2022-11-26 00:00 | OXYCODONE | [facility] | | | HCL/ACETAMINOPHEN | | + + + + | 2022-12-01 00:00 | OXYCODONE | [facility] | | | HCL/ACETAMINOPHEN | | + + + + | 2022-11-08 00:00 | acetaminophen 325 MG / | [facility] | | | oxycodone hydrochloride 5 | | | | MG Oral Tab | | + + + + | 2022-11-26 00:00 | acetaminophen 325 MG / | [facility] | | | oxycodone hydrochloride 5 | | | | MG Oral Tab | | + + + + | 2022-07-04 00:00 | OXYCODONE HCL | [facility] | + + + + | 2022-11-08 00:00 | OXYCODONE HCL | [facility] | + + + + | 2022-11-26 00:00 | OXYCODONE HCL | [facility] | + + + + | 2022-12-01 00:00 | OXYCODONE HCL | [facility] | + + + + | 2022-11-08 00:00 | oxycodone hydrochloride 10 | [facility] | | | MG Oral Tablet | | + + + + | 2022-11-26 00:00 | oxycodone hydrochloride 10 | [facility] | | | MG Oral Tablet | | + + + + | 2022-07-04 00:00 | DIVALPROEX SODIUM | [facility] | + + + + | 2022-11-08 00:00 | DIVALPROEX SODIUM | [facility] | + + + + | 2022-11-26 00:00 | DIVALPROEX SODIUM | [facility] | + + + + | 2022-12-01 00:00 | DIVALPROEX SODIUM | [facility] | + + + + | 2022-11-08 00:00 | divalproex sodium 250 MG | [facility] | | | Delayed Release Oral Tablet | | | | | | + + + + | 2022-11-26 00:00 | divalproex sodium 250 MG | [facility] | | | Delayed Release Oral Tablet | | | | | | + + + + | 2022-11-26 00:00 | LACTOBACILLUS ACIDOPHILUS | [facility] | + + + + | 2022-12-01 00:00 | LACTOBACILLUS ACIDOPHILUS | [facility] | + + + + | 2022-11-26 00:00 | Lactobacillus acidophilus | [facility] | | | [id number] UNT Oral | | | | Capsule | | + + + + | 2021-10-14 00:00 | IBUPROFEN | [facility] | + + + + | 2021-04-30 00:00 | NICOTINE | [facility] | + + + + | 2022-07-04 00:00 | OMEPRAZOLE | [facility] | + + + + | 2022-11-08 00:00 | OMEPRAZOLE | [facility] | + + + + | 2022-11-26 00:00 | OMEPRAZOLE | [facility] | + + + + | 2022-12-01 00:00 | OMEPRAZOLE | [facility] | + + + + | 2022-11-08 00:00 | omeprazole 20 MG Delayed | [facility] | | | Release Oral Capsule | | + + + + | 2022-11-26 00:00 | omeprazole 20 MG Delayed | [facility] | | | Release Oral Capsule | | + + + + | 2021-04-30 00:00 | ACETAMINOPHEN | [facility] | + + + + | 2021-04-30 00:00 | ACETAMINOPHEN | [facility] | + + + + | 2021-10-14 00:00 | ACETAMINOPHEN | [facility] | + + + + | 2022-07-04 00:00 | ACETAMINOPHEN | [facility] | + + + + | 2022-11-08 00:00 | ACETAMINOPHEN | [facility] | + + + + | 2022-11-08 00:00 | ACETAMINOPHEN | [facility] | + + + + | 2022-11-26 00:00 | ACETAMINOPHEN | [facility] | + + + + | 2022-12-01 00:00 | ACETAMINOPHEN | [facility] | + + + + | 2021-04-30 00:00 | acetaminophen 500 MG Oral | [facility] | | | Tablet | | + + + + | 2021-10-14 00:00 | acetaminophen 500 MG Oral | [facility] | | | Tablet | | + + + + | 2022-11-08 00:00 | acetaminophen 500 MG Oral | [facility] | | | Tablet | | + + + + | 2022-11-26 00:00 | acetaminophen 500 MG Oral | [facility] | | | Tablet | | + + + + | 2022-07-04 00:00 | OMEPRAZOLE | [facility] | + + + + | 2022-11-08 00:00 | OMEPRAZOLE | [facility] | + + + + | 2022-11-26 00:00 | OMEPRAZOLE | [facility] | + + + + | 2022-12-01 00:00 | OMEPRAZOLE | [facility] | + + + + | 2022-11-08 00:00 | omeprazole 40 MG Delayed | [facility] | | | Release Oral Capsule | | + + + + | 2022-11-26 00:00 | omeprazole 40 MG Delayed | [facility] | | | Release Oral Capsule | | + + + + | 2022-07-04 00:00 | CIPROFLOXACIN HCL | [facility] | + + + + | 2022-11-08 00:00 | CIPROFLOXACIN HCL | [facility] | + + + + | 2022-11-26 00:00 | CIPROFLOXACIN HCL | [facility] | + + + + | 2022-12-01 00:00 | CIPROFLOXACIN HCL | [facility] | + + + + | 2022-11-08 00:00 | ciprofloxacin 500 MG Oral | [facility] | | | Tablet [Cipro] | | + + + + | 2022-11-26 00:00 | ciprofloxacin 500 MG Oral | [facility] | | | Tablet [Cipro] | | + + + + | 2022-07-04 00:00 | FLUCONAZOLE | [facility] | + + + + | 2022-11-08 00:00 | FLUCONAZOLE | [facility] | + + + + | 2022-11-26 00:00 | FLUCONAZOLE | [facility] | + + + + | 2022-12-01 00:00 | FLUCONAZOLE | [facility] | + + + + | 2022-11-08 00:00 | fluconazole 200 MG Oral | [facility] | | | Tablet [Diflucan] | | + + + + | 2022-11-26 00:00 | fluconazole 200 MG Oral | [facility] | | | Tablet [Diflucan] | | + + + + | 2022-07-04 00:00 | SERTRALINE HCL | [facility] | + + + + | 2022-11-08 00:00 | SERTRALINE HCL | [facility] | + + + + | 2022-11-26 00:00 | SERTRALINE HCL | [facility] | + + + + | 2022-12-01 00:00 | SERTRALINE HCL | [facility] | + + + + | 2022-11-08 00:00 | sertraline 100 MG Oral | [facility] | | | Tablet [Zoloft] | | + + + + | 2022-11-26 00:00 | sertraline 100 MG Oral | [facility] | | | Tablet [Zoloft] | | + + + + | 2022-07-04 00:00 | CALCIUM CARBONATE | [facility] | + + + + | 2022-11-08 00:00 | CALCIUM CARBONATE | [facility] | + + + + | 2022-11-26 00:00 | CALCIUM CARBONATE | [facility] | + + + + | 2022-12-01 00:00 | CALCIUM CARBONATE | [facility] | + + + + | 2022-11-08 00:00 | calcium carbonate 500 MG | [facility] | | | Chewable Tablet [Tums] | | + + + + | 2022-11-26 00:00 | calcium carbonate 500 MG | [facility] | | | Chewable Tablet [Tums] | | + + + + | 2013-10-05 00:00 | CEPHALEXIN | [facility] | + + + + | 2013-10-05 00:00 | CEPHALEXIN | [facility] | + + + + | 2013-10-05 00:00 | cephalexin 500 MG Oral | [facility] | | | Capsule [Keflex] | | + + + + | 2022-07-04 00:00 | AMOXICILLIN | [facility] | + + + + | 2022-11-08 00:00 | AMOXICILLIN | [facility] | + + + + | 2022-11-26 00:00 | AMOXICILLIN | [facility] | + + + + | 2022-12-01 00:00 | AMOXICILLIN | [facility] | + + + + | 2022-11-08 00:00 | amoxicillin 500 MG Oral | [facility] | | | Capsule | | + + + + | 2022-11-26 00:00 | amoxicillin 500 MG Oral | [facility] | | | Capsule | | + + + + | 2022-07-04 00:00 | CIPROFLOXACIN HCL | [facility] | + + + + | 2022-11-08 00:00 | CIPROFLOXACIN HCL | [facility] | + + + + | 2022-11-26 00:00 | CIPROFLOXACIN HCL | [facility] | + + + + | 2022-12-01 00:00 | CIPROFLOXACIN HCL | [facility] | + + + + | 2022-11-08 00:00 | ciprofloxacin 500 MG Oral | [facility] | | | Tablet | | + + + + | 2022-11-26 00:00 | ciprofloxacin 500 MG Oral | [facility] | | | Tablet | | + + + + | 2022-07-04 00:00 | GABAPENTIN | [facility] | + + + + | 2022-11-08 00:00 | GABAPENTIN | [facility] | + + + + | 2022-11-26 00:00 | GABAPENTIN | [facility] | + + + + | 2022-12-01 00:00 | GABAPENTIN | [facility] | + + + + | 2022-11-08 00:00 | gabapentin 600 MG Oral | [facility] | | | Tablet | | + + + + | 2022-11-26 00:00 | gabapentin 600 MG Oral | [facility] | | | Tablet | | + + + + | 2022-07-04 00:00 | IBUPROFEN | [facility] | + + + + | 2022-11-08 00:00 | IBUPROFEN | [facility] | + + + + | 2022-11-26 00:00 | IBUPROFEN | [facility] | + + + + | 2022-12-01 00:00 | IBUPROFEN | [facility] | + + + + | 2022-11-08 00:00 | ibuprofen 200 MG Oral | [facility] | | | Capsule | | + + + + | 2022-11-26 00:00 | ibuprofen 200 MG Oral | [facility] | | | Capsule | | + + + + | 2022-07-04 00:00 | IBUPROFEN | [facility] | + + + + | 2022-11-08 00:00 | IBUPROFEN | [facility] | + + + + | 2022-11-26 00:00 | IBUPROFEN | [facility] | + + + + | 2022-12-01 00:00 | IBUPROFEN | [facility] | + + + + | 2022-11-08 00:00 | ibuprofen 200 MG Oral | [facility] | | | Tablet | | + + + + | 2022-11-26 00:00 | ibuprofen 200 MG Oral | [facility] | | | Tablet | | + + + + | 2022-07-04 00:00 | METRONIDAZOLE | [facility] | + + + + | 2022-11-08 00:00 | METRONIDAZOLE | [facility] | + + + + | 2022-11-26 00:00 | METRONIDAZOLE | [facility] | + + + + | 2022-12-01 00:00 | METRONIDAZOLE | [facility] | + + + + | 2022-11-08 00:00 | metronidazole 500 MG Oral | [facility] | | | Tablet | | + + + + | 2022-11-26 00:00 | metronidazole 500 MG Oral | [facility] | | | Tablet | | + + + + | 2022-07-03 00:00 | ONDANSETRON | [facility] | + + + + | 2022-07-04 00:00 | ONDANSETRON | [facility] | + + + + | 2022-07-04 00:00 | SENNOSIDES | [facility] | + + + + | 2022-11-08 00:00 | SENNOSIDES | [facility] | + + + + | 2022-11-26 00:00 | SENNOSIDES | [facility] | + + + + | 2022-12-01 00:00 | SENNOSIDES | [facility] | + + + + | 2022-11-08 00:00 | sennosides, ALF 8.6 MG | [facility] | | | Oral Tablet | | + + + + | 2022-11-26 00:00 | sennosides, ALF 8.6 MG | [facility] | | | Oral Tablet | | + + + + | 2022-07-04 00:00 | ACETAMINOPHEN | [facility] | + + + + | 2022-11-08 00:00 | ACETAMINOPHEN | [facility] | + + + + | 2022-11-26 00:00 | ACETAMINOPHEN | [facility] | + + + + | 2022-12-01 00:00 | ACETAMINOPHEN | [facility] | + + + + | 2022-11-08 00:00 | acetaminophen 325 MG Oral | [facility] | | | Tablet | | + + + + | 2022-11-26 00:00 | acetaminophen 325 MG Oral | [facility] | | | Tablet | | + + + + | 2022-11-26 00:00 | LISINOPRIL | [facility] | + + + + | 2022-12-01 00:00 | LISINOPRIL | [facility] | + + + + | 2022-11-26 00:00 | lisinopril 10 MG Oral | [facility] | | | Tablet | | + + + + | 2022-11-08 00:00 | METRONIDAZOLE | [facility] | + + + + | 2022-11-08 00:00 | metronidazole 250 MG Oral | [facility] | | | Tablet | | + + + + | 2022-11-08 00:00 | 24 HR nicotine 0.583 MG/HR | [facility] | | | Transdermal System | | | | [Juan C BoydQ] | | + + + + | 2022-11-26 00:00 | 24 HR nicotine 0.583 MG/HR | [facility] | | | Transdermal System | | | | [Juan C Fernandez] | | + + + + | 2022-07-04 00:00 | NICOTINE | [facility] | + + + + | 2022-11-08 00:00 | NICOTINE | [facility] | + + + + | 2022-11-26 00:00 | NICOTINE | [facility] | + + + + | 2022-12-01 00:00 | NICOTINE | [facility] | + + + + | 2022-07-04 00:00 | Scopolamine | [facility] | + + + + | 2022-07-04 00:00 | OMEPRAZOLE MAGNESIUM | [facility] | + + + + | 2022-11-08 00:00 | OMEPRAZOLE MAGNESIUM | [facility] | + + + + | 2022-11-26 00:00 | OMEPRAZOLE MAGNESIUM | [facility] | + + + + | 2022-12-01 00:00 | OMEPRAZOLE MAGNESIUM | [facility] | + + + + | 2022-11-08 00:00 | omeprazole 20 MG Delayed | [facility] | | | Release Oral Tablet | | + + + + | 2022-11-26 00:00 | omeprazole 20 MG Delayed | [facility] | | | Release Oral Tablet | | + + + + | 2022-07-04 00:00 | NITROFURANTOIN MONOHYD | [facility] | | | MACROCR | | + + + + | 2022-11-08 00:00 | NITROFURANTOIN MONOHYD | [facility] | | | MACROCR | | + + + + | 2022-11-26 00:00 | NITROFURANTOIN MONOHYD | [facility] | | | MACROCR | | + + + + | 2022-12-01 00:00 | NITROFURANTOIN MONOHYD | [facility] | | | MACROCR | | + + + + | 2022-11-08 00:00 | nitrofurantoin, | [facility] | | | macrocrystals 25 MG / | | | | nitrofurantoin, monohy | | + + + + | 2022-11-26 00:00 | nitrofurantoin, | [facility] | | | macrocrystals 25 MG / | | | | nitrofurantoin, monohy | | + + + + | 2022-11-08 00:00 | AMOXICILLIN/POTASSIUM CLAV | [facility] | | | | | + + + + | 2022-11-08 00:00 | amoxicillin 875 MG / | [facility] | | | clavulanate 125 MG Oral | | | | Tablet | | + + + + | 2022-11-08 00:00 | Varenicline Tartrate | [facility] | + + + + | 2022-11-26 00:00 | Varenicline Tartrate | [facility] | + + + + | 2022-12-01 00:00 | Varenicline Tartrate | [facility] | + + + + | 2022-11-08 00:00 | varenicline 1 MG Oral | [facility] | | | Tablet | | + + + + | 2022-11-26 00:00 | varenicline 1 MG Oral | [facility] | | | Tablet | | + + + + | 2022-07-04 00:00 | NORGESTIMATE-ETHINYL | [facility] | | | ESTRADIOL | | + + + + | 2022-11-08 00:00 | NORGESTIMATE-ETHINYL | [facility] | | | ESTRADIOL | | + + + + | 2022-11-26 00:00 | NORGESTIMATE-ETHINYL | [facility] | | | ESTRADIOL | | + + + + | 2022-12-01 00:00 | NORGESTIMATE-ETHINYL | [facility] | | | ESTRADIOL | | + + + + | 2022-11-08 00:00 | Ortho Tri-Cyclen 28 Day | [facility] | | | Pack | | + + + + | 2022-11-26 00:00 | Ortho Tri-Cyclen 28 Day | [facility] | | | Pack | | + + + + | 2022-07-04 00:00 | AMOXICILLIN/POTASSIUM CLAV | [facility] | | | | | + + + + | 2022-11-08 00:00 | AMOXICILLIN/POTASSIUM CLAV | [facility] | | | | | + + + + | 2022-11-26 00:00 | AMOXICILLIN/POTASSIUM CLAV | [facility] | | | | | + + + + | 2022-12-01 00:00 | AMOXICILLIN/POTASSIUM CLAV | [facility] | | | | | + + + + | 2022-11-08 00:00 | amoxicillin 875 MG / | [facility] | | | clavulanate 125 MG Oral | | | | Tablet [Augment | | + + + + | 2022-11-26 00:00 | amoxicillin 875 MG / | [facility] | | | clavulanate 125 MG Oral | | | | Tablet [Augment | | + + + + | 2017-08-13 00:00 | TRAMADOL HCL | [facility] | + + + + | 2017-08-13 00:00 | TRAMADOL HCL | [facility] | + + + + | 2017-08-13 00:00 | tramadol hydrochloride 50 | [facility] | | | MG Oral Tablet [Ultram] | | + + + + | 2022-07-04 00:00 | | [facility] | | | SULFAMETHOXAZOLE/TRIMETHOPR | | | | IM DS | | + + + + | 2022-11-08 00:00 | | [facility] | | | SULFAMETHOXAZOLE/TRIMETHOPR | | | | IM DS | | + + + + | 2022-11-26 00:00 | | [facility] | | | SULFAMETHOXAZOLE/TRIMETHOPR | | | | IM DS | | + + + + | 2022-12-01 00:00 | | [facility] | | | SULFAMETHOXAZOLE/TRIMETHOPR | | | | IM DS | | + + + + | 2022-11-08 00:00 | sulfamethoxazole 800 MG / | [facility] | | | trimethoprim 160 MG Oral | | | | Tablet [B | | + + + + | 2022-11-26 00:00 | sulfamethoxazole 800 MG / | [facility] | | | trimethoprim 160 MG Oral | | | | Tablet [B | | + + + + | 2022-07-04 00:00 | NAPROXEN SODIUM | [facility] | + + + + | 2022-11-08 00:00 | NAPROXEN SODIUM | [facility] | + + + + | 2022-11-26 00:00 | NAPROXEN SODIUM | [facility] | + + + + | 2022-12-01 00:00 | NAPROXEN SODIUM | [facility] | + + + + | 2022-11-08 00:00 | naproxen sodium 220 MG | [facility] | | | Oral Tablet [Aleve] | | + + + + | 2022-11-26 00:00 | naproxen sodium 220 MG | [facility] | | | Oral Tablet [Aleve] | | + + + + | 2022-07-04 00:00 | AMITRIPTYLINE HCL | [facility] | + + + + | 2022-11-08 00:00 | AMITRIPTYLINE HCL | [facility] | + + + + | 2022-11-26 00:00 | AMITRIPTYLINE HCL | [facility] | + + + + | 2022-12-01 00:00 | AMITRIPTYLINE HCL | [facility] | + + + + | 2022-11-08 00:00 | amitriptyline | [facility] | | | hydrochloride 10 MG Oral | | | | Tablet | | + + + + | 2022-11-26 00:00 | amitriptyline | [facility] | | | hydrochloride 10 MG Oral | | | | Tablet | | + + + + | 2022-07-04 00:00 | AMITRIPTYLINE HCL | [facility] | + + + + | 2022-11-08 00:00 | AMITRIPTYLINE HCL | [facility] | + + + + | 2022-11-26 00:00 | AMITRIPTYLINE HCL | [facility] | + + + + | 2022-12-01 00:00 | AMITRIPTYLINE HCL | [facility] | + + + + | 2022-11-08 00:00 | amitriptyline | [facility] | | | hydrochloride 25 MG Oral | | | | Tablet | | + + + + | 2022-11-26 00:00 | amitriptyline | [facility] | | | hydrochloride 25 MG Oral | | | | Tablet | | + + + + | 2022-07-03 00:00 | HYDROCODONE | [facility] | | | BIT/ACETAMINOPHEN | | + + + + | 2022-07-04 00:00 | HYDROCODONE | [facility] | | | BIT/ACETAMINOPHEN | | + + + + | 2022-11-08 00:00 | HYDROCODONE | [facility] | | | BIT/ACETAMINOPHEN | | + + + + | 2022-11-26 00:00 | HYDROCODONE | [facility] | | | BIT/ACETAMINOPHEN | | + + + + | 2022-12-01 00:00 | HYDROCODONE | [facility] | | | BIT/ACETAMINOPHEN | | + + + + | 2022-11-08 00:00 | acetaminophen 325 MG / | [facility] | | | hydrocodone bitartrate 5 MG | | | | Oral Tabl | | + + + + | 2022-11-26 00:00 | acetaminophen 325 MG / | [facility] | | | hydrocodone bitartrate 5 MG | | | | Oral Tabl | | + + + + | 2019-04-07 00:00 | HYDROCODONE | [facility] | | | BIT/ACETAMINOPHEN | | + + + + | 2019-04-07 00:00 | HYDROCODONE | [facility] | | | BIT/ACETAMINOPHEN | | + + + + | 2022-07-04 00:00 | HYDROCODONE | [facility] | | | BIT/ACETAMINOPHEN | | + + + + | 2022-11-08 00:00 | HYDROCODONE | [facility] | | | BIT/ACETAMINOPHEN | | + + + + | 2022-11-26 00:00 | HYDROCODONE | [facility] | | | BIT/ACETAMINOPHEN | | + + + + | 2022-12-01 00:00 | HYDROCODONE | [facility] | | | BIT/ACETAMINOPHEN | | + + + + | 2019-04-07 00:00 | acetaminophen 325 MG / | [facility] | | | hydrocodone bitartrate 5 MG | | | | Oral Tabl | | + + + + | 2022-11-08 00:00 | acetaminophen 325 MG / | [facility] | | | hydrocodone bitartrate 5 MG | | | | Oral Tabl | | + + + + | 2022-11-26 00:00 | acetaminophen 325 MG / | [facility] | | | hydrocodone bitartrate 5 MG | | | | Oral Tabl | | + + + + | 2022-07-04 00:00 | HYDRALAZINE HCL | [facility] | + + + + | 2022-11-08 00:00 | HYDRALAZINE HCL | [facility] | + + + + | 2022-11-26 00:00 | HYDRALAZINE HCL | [facility] | + + + + | 2022-12-01 00:00 | HYDRALAZINE HCL | [facility] | + + + + | 2022-11-08 00:00 | hydralazine hydrochloride | [facility] | | | 10 MG Oral Tablet | | + + + + | 2022-11-26 00:00 | hydralazine hydrochloride | [facility] | | | 10 MG Oral Tablet | | + + + + | 2022-07-04 00:00 | PROMETHAZINE HCL | [facility] | + + + + | 2022-11-08 00:00 | PROMETHAZINE HCL | [facility] | + + + + | 2022-11-26 00:00 | PROMETHAZINE HCL | [facility] | + + + + | 2022-12-01 00:00 | PROMETHAZINE HCL | [facility] | + + + + | 2022-11-08 00:00 | promethazine hydrochloride | [facility] | | | 25 MG Oral Tablet | | + + + + | 2022-11-26 00:00 | promethazine hydrochloride | [facility] | | | 25 MG Oral Tablet | | + + + + Problems + + + + | date | description | facility | + + + + | 2015-10-06 00:00 | S/P hysterectomy | [facility] | + + + + | 2015-10-06 00:00 | Post-operative | [facility] | | | complication | | + + + + | 2015-10-06 00:00 | Pelvic abscess in female | [facility] | + + + + | 2015-10-06 00:00 | Abscess of female pelvis | [facility] | + + + + | 2015-10-06 00:00 | Abscess of female pelvis | [facility] | + + + + | 2015-10-06 00:00 | Postoperative complication | [facility] | | | | | + + + + | 2015-10-06 00:00 | Postoperative complication | [facility] | | | | | + + + + | 2015-10-06 00:00 | Status post hysterectomy | [facility] | + + + + | 2015-10-06 00:00 | Status post hysterectomy | [facility] | + + + + | 2016-02-10 00:00 | Patient left without being | [facility] | | | seen | | + + + + | 2016-02-10 00:00 | Patient left without being | [facility] | | | seen | | + + + + | 2016-06-08 00:00 | Encounter for medical | [facility] | | | screening examination | | + + + + | 2016-06-08 00:00 | Encounter for medical | [facility] | | | screening examination | | + + + + | 2017-08-13 00:00 | Right ankle sprain | [facility] | + + + + | 2017-08-13 00:00 | Sprain of right ankle | [facility] | + + + + | 2017-08-13 00:00 | Sprain of right ankle | [facility] | + + + + | 2018-01-14 00:00 | Migraine headache | [facility] | + + + + | 2018-01-14 00:00 | Migraine headache | [facility] | + + + + | 2021-02-21 00:00 | Wound dehiscence | [facility] | + + + + | 2021-02-21 00:00 | Dehiscence of wound | [facility] | + + + + | 2021-02-21 00:00 | Dehiscence of wound | [facility] | + + + + | 2021-04-28 00:00 | Incarcerated ventral | [facility] | | | hernia | | + + + + | 2021-04-28 00:00 | 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 | | + + + + | 2021-04-28 00:00 | 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 | | + + + + | 2022-07-03 00:00 | Ovarian cystic mass | [facility] | + + + + | 2022-07-03 00:00 | Cyst of ovary | [facility] | + + + + | 2022-07-03 00:00 | Cyst of ovary | [facility] | + + + + | 2022-11-25 00:00 | Rectus sheath hematoma | [facility] | + + + + | 2022-11-25 00:00 | Hydronephrosis due to | [facility] | | | obstruction of ureter | | + + + + | 2022-11-25 00:00 | Hydronephrosis due to | [facility] | | | obstruction of ureter | | + + + + | 2022-11-25 00:00 | Hematoma of rectus sheath | [facility] | + + + + | 2022-11-25 00:00 | Hematoma of rectus sheath | [facility] | + + + + Procedures + + + + | date | description | facility | + + + + | 2022-11-04 00:00 | RELEASE PERITONEUM, OPEN | [facility] | | | APPROACH | | + + + + | 2022-11-04 00:00 | RELEASE PERITONEUM, OPEN | [facility] | | | APPROACH | | + + + + | 2022-11-04 00:00 | RESECTION OF BILATERAL | [facility] | | | OVARIES, OPEN APPROACH | | + + + + | 2022-11-04 00:00 | RESECTION OF BILATERAL | [facility] | | | OVARIES, OPEN APPROACH | | + + + + | 2022-11-04 00:00 | RESECTION OF BILATERAL | [facility] | | | FALLOPIAN TUBES, OPEN | | | | APPROACH | | + + + + | 2022-11-04 00:00 | RESECTION OF BILATERAL | [facility] | | | FALLOPIAN TUBES, OPEN | | | | APPROACH | | + + + + | 2022-11-04 00:00 | REMOVAL OF SYNTHETIC | [facility] | | | SUBSTITUTE FROM ABD WALL, | | | | OPEN APPROACH | | + + + + | 2022-11-04 00:00 | REMOVAL OF SYNTHETIC | [facility] | | | SUBSTITUTE FROM ABD WALL, | | | | OPEN APPROACH | | + + + + | 2022-11-04 00:00 | REPAIR ABDOMINAL WALL, | [facility] | | | OPEN APPROACH | | + + + + | 2022-11-04 00:00 | REPAIR ABDOMINAL WALL, | [facility] | | | OPEN APPROACH | | + + + + | 2022-11-04 00:00 | Repair of incisional | [facility] | | | hernia | | + + + + | 2022-11-04 00:00 | TRANSFUSE NONAUT RED BLOOD | [facility] | | | CELLS IN PERIPH VEIN, PERC | | | | | | + + + + | 2022-11-04 00:00 | TRANSFUSE NONAUT RED BLOOD | [facility] | | | CELLS IN PERIPH VEIN, PERC | | | | | | + + + + | 2022-11-04 00:00 | Exploratory laparotomy | [facility] | + + + + Results/Labs +--------+--------+ +---------+--------+---------+ | test | date | facility | value | unit | notes | +--------+--------+ +---------+--------+---------+ + + | Result panel 1 | + + + + + + + + + | | 2022-07-03 | [facility] | YELLOW | (missing) | (missing) | | (unavailable | 20:00 | [facility] | | | | + + + + + + + + + | Result panel 2 | + + + + + +---------+ + + | | 2022-07-03 | [facility] | CLEAR | (missing) | (missing) | | (unavailable | 20:00 | [facility] | | | | + + + +---------+ + + + + | Result panel 3 | + + + + + + + + + | | 2022-07-03 | [facility] | NEGATIVE | (missing) | (missing) | | (unavailable | 20:00 | [facility] | | | | + + + + + + + + + | Result panel 4 | + + + + + + + + + | | 2022-07-03 | [facility] | NEGATIVE | (missing) | (missing) | | (unavailable | 20:00 | [facility] | | | | + + + + + + + + + | Result panel 5 | + + + + + + + + + | | 2022-07-03 | [facility] | NEGATIVE | (missing) | (missing) | | (unavailable | 20:00 | [facility] | | | | + + + + + + + + + | Result panel 6 | + + + + + +---------+ + + | | 2022-07-03 | [facility] | 1.010 | (missing) | (missing) | | (unavailable | 20:00 | [facility] | | | | + + + +---------+ + + + + | Result panel 7 | + + + + + + + + + | | 2022-07-03 | [facility] | TRACE-I | (missing) | (missing) | | (unavailable | 20:00 | [facility] | | | | + + + + + + + + + | Result panel 8 | + + + + + +-------+ + + | | 2022-07-03 | [facility] | 6.0 | (missing) | (missing) | | (unavailable | 20:00 | [facility] | | | | + + + +-------+ + + + + | Result panel 9 | + + + + + + + + + | | 2022-07-03 | [facility] | NEGATIVE | (missing) | (missing) | | (unavailable | 20:00 | [facility] | | | | + + + + + + + + + | Result panel 10 | + + + + + + + + + | | 2022-07-03 | [facility] | NORMAL | (missing) | (missing) | | (unavailable | 20:00 | [facility] | | | | + + + + + + + + + | Result panel 11 | + + + + + + + + + | | 2022-07-03 | [facility] | NEGATIVE | (missing) | (missing) | | (unavailable | 20:00 | [facility] | | | | + + + + + + + + + | Result panel 12 | + + + + + + + + + | | 2022-07-03 | [facility] | NEGATIVE | (missing) | (missing) | | (unavailable | 20:00 | [facility] | | | | + + + + + + + + + | Result panel 13 | + + + + + +-------+ + + | | 2022-07-03 | [facility] | 2-3 | (missing) | (missing) | | (unavailable | 20:00 | [facility] | | | | + + + +-------+ + + + + | Result panel 14 | + + + + + +-------+ + + | | 2022-07-03 | [facility] | 0-1 | (missing) | (missing) | | (unavailable | 20:00 | [facility] | | | | + + + +-------+ + + + + | Result panel 15 | + + + + + +-----+ + + | | 2022-07-03 | [facility] | 0 | (missing) | (missing) | | (unavailable | 20:00 | [facility] | | | | + + + +-----+ + + + + | Result panel 16 | + + + + + +------+ + + | | 2022-07-03 | [facility] | No | (missing) | (missing) | | (unavailable | 20:00 | [facility] | | | | + + + +------+ + + + + | Result panel 17 | + + + + + + + + + | | 2022-07-03 | [facility] | CLEAN CATCH | (missing) | (missing) | | (unavailable | 20:00 | [facility] | | | | + + + + + + + + + | Result panel 18 | + + + + + + + + + | | 2022-07-03 | [facility] | NEGATIVE | (missing) | (missing) | | (unavailable | 20:00 | [facility] | | | | + + + + + + + + + | Result panel 19 | + + + + + +--------+ + + | | 2022-07-03 | [facility] | 12.3 | (missing) | (missing) | | (unavailable | 20:49 | [facility] | | | | + + + +--------+ + + + + | Result panel 20 | + + + + + +--------+ + + | | 2022-07-03 | [facility] | 4.87 | (missing) | (missing) | | (unavailable | 20:49 | [facility] | | | | + + + +--------+ + + + + | Result panel 21 | + + + + + +--------+ + + | | 2022-07-03 | [facility] | 12.6 | (missing) | (missing) | | (unavailable | 20:49 | [facility] | | | | + + + +--------+ + + + + | Result panel 22 | + + + + + +--------+ + + | | 2022-07-03 | [facility] | 38.8 | (missing) | (missing) | | (unavailable | 20:49 | [facility] | | | | + + + +--------+ + + + + | Result panel 23 | + + + + + +--------+ + + | | 2022-07-03 | [facility] | 79.6 | (missing) | (missing) | | (unavailable | 20:49 | [facility] | | | | + + + +--------+ + + + + | Result panel 24 | + + + + + +--------+ + + | | 2022-07-03 | [facility] | 25.9 | (missing) | (missing) | | (unavailable | 20:49 | [facility] | | | | + + + +--------+ + + + + | Result panel 25 | + + + + + +--------+ + + | | 2022-07-03 | [facility] | 32.5 | (missing) | (missing) | | (unavailable | 20:49 | [facility] | | | | + + + +--------+ + + + + | Result panel 26 | + + + + + +--------+ + + | | 2022-07-03 | [facility] | 17.1 | (missing) | (missing) | | (unavailable | 20:49 | [facility] | | | | + + + +--------+ + + + + | Result panel 27 | + + + + + +-------+ + + | | 2022-07-03 | [facility] | 351 | (missing) | (missing) | | (unavailable | 20:49 | [facility] | | | | + + + +-------+ + + + + | Result panel 28 | + + + + + +--------+ + + | | 2022-07-03 | [facility] | 65.4 | (missing) | (missing) | | (unavailable | 20:49 | [facility] | | | | + + + +--------+ + + + + | Result panel 29 | + + + + + +--------+ + + | | 2022-07-03 | [facility] | 26.7 | (missing) | (missing) | | (unavailable | 20:49 | [facility] | | | | + + + +--------+ + + + + | Result panel 30 | + + + + + +-------+ + + | | 2022-07-03 | [facility] | 5.0 | (missing) | (missing) | | (unavailable | 20:49 | [facility] | | | | + + + +-------+ + + + + | Result panel 31 | + + + + + +-------+ + + | | 2022-07-03 | [facility] | 2.1 | (missing) | (missing) | | (unavailable | 20:49 | [facility] | | | | + + + +-------+ + + + + | Result panel 32 | + + + + + +-------+ + + | | 2022-07-03 | [facility] | 0.8 | (missing) | (missing) | | (unavailable | 20:49 | [facility] | | | | + + + +-------+ + + + + | Result panel 33 | + + + + + +------+---------+ + | | 2022-07-03 | [facility] | 97 | mg/dL | (missing) | | (unavailable | 20:49 | [facility] | | | | + + + +------+---------+ + + + | Result panel 34 | + + + + + +------+---------+ + | | 2022-07-03 | [facility] | 11 | mg/dL | (missing) | | (unavailable | 20:49 | [facility] | | | | + + + +------+---------+ + + + | Result panel 35 | + + + + + +--------+---------+ + | | 2022-07-03 | [facility] | 0.74 | mg/dL | (missing) | | (unavailable | 20:49 | [facility] | | | | + + + +--------+---------+ + + + | Result panel 36 | + + + + + +-------+ + + | | 2022-07-03 | [facility] | 107 | (missing) | (missing) | | (unavailable | 20:49 | [facility] | | | | + + + +-------+ + + + + | Result panel 37 | + + + + + +---------+ + + | | 2022-07-03 | [facility] | 14.86 | (missing) | (missing) | | (unavailable | 20:49 | [facility] | | | | + + + +---------+ + + + + | Result panel 38 | + + + + + +-------+ + + | | 2022-07-03 | [facility] | 138 | (missing) | (missing) | | (unavailable | 20:49 | [facility] | | | | + + + +-------+ + + + + | Result panel 39 | + + + + + +-------+ + + | | 2022-07-03 | [facility] | 3.5 | (missing) | (missing) | | (unavailable | 20:49 | [facility] | | | | + + + +-------+ + + + + | Result panel 40 | + + + + + +-------+ + + | | 2022-07-03 | [facility] | 102 | (missing) | (missing) | | (unavailable | 20:49 | [facility] | | | | + + + +-------+ + + + + | Result panel 41 | + + + + + +------+ + + | | 2022-07-03 | [facility] | 27 | (missing) | (missing) | | (unavailable | 20:49 | [facility] | | | | + + + +------+ + + + + | Result panel 42 | + + + + + +--------+ + + | | 2022-07-03 | [facility] | 12.5 | (missing) | (missing) | | (unavailable | 20:49 | [facility] | | | | + + + +--------+ + + + + | Result panel 43 | + + + + + +-------+---------+ + | | 2022-07-03 | [facility] | 8.8 | mg/dL | (missing) | | (unavailable | 20:49 | [facility] | | | | + + + +-------+---------+ + + + | Result panel 44 | + + + + + +-------+ + + | | 2022-07-03 | [facility] | 7.6 | (missing) | (missing) | | (unavailable | 20:49 | [facility] | | | | + + + +-------+ + + + + | Result panel 45 | + + + + + +-------+ + + | | 2022-07-03 | [facility] | 3.4 | (missing) | (missing) | | (unavailable | 20:49 | [facility] | | | | + + + +-------+ + + + + | Result panel 46 | + + + + + +-------+ + + | | 2022-07-03 | [facility] | 4.2 | (missing) | (missing) | | (unavailable | 20:49 | [facility] | | | | + + + +-------+ + + + + | Result panel 47 | + + + + + +--------+ + + | | 2022-07-03 | [facility] | 0.81 | (missing) | (missing) | | (unavailable | 20:49 | [facility] | | | | + + + +--------+ + + + + | Result panel 48 | + + + + + +-------+ + + | | 2022-07-03 | [facility] | 0.2 | (missing) | (missing) | | (unavailable | 20:49 | [facility] | | | | + + + +-------+ + + + + | Result panel 49 | + + + + + +------+ + + | | 2022-07-03 | [facility] | 11 | (missing) | (missing) | | (unavailable | 20:49 | [facility] | | | | + + + +------+ + + + + | Result panel 50 | + + + + + +------+ + + | | 2022-07-03 | [facility] | 24 | (missing) | (missing) | | (unavailable | 20:49 | [facility] | | | | + + + +------+ + + + + | Result panel 51 | + + + + + +-------+ + + | | 2022-07-03 | [facility] | 101 | (missing) | (missing) | | (unavailable | 20:49 | [facility] | | | | + + + +-------+ + + + + | Result panel 52 | + + + + + +------+ + + | Cancer Ag | 2022-11-04 | [facility] | 34 | (missing) | (missing) | | 125 | 07:50 | [facility] | | | | | [Units/volum | | Hospital | | | | | e] in Serum | | | | | | | or Plasma | | | | | | + + + +------+ + + + + | Result panel 53 | + + + + + +------+ + + | Cancer Ag | 2022-11-04 | [facility] | 34 | (missing) | (missing) | | 125 | 07:50 | [facility] | | | | | [Units/volum | | Hospital | | | | | e] in Serum | | | | | | | or Plasma | | | | | | + + + +------+ + + + + | Result panel 54 | + + + + + +------+ + + | | 2022-11-04 | [facility] | 34 | (missing) | (missing) | | (unavailable | 07:50:07 | [facility] | | | | + + + +------+ + + + + | Result panel 55 | + + + + + +------+ + + | | 2022-11-04 | [facility] | 34 | (missing) | (missing) | | (unavailable | 07:50:08 | [facility] | | | | + + + +------+ + + + + | Result panel 56 | + + + + + +------+ + + | | 2022-11-04 | [facility] | 34 | (missing) | (missing) | | (unavailable | 07:50:08 | [facility] | | | | + + + +------+ + + + + | Result panel 57 | + + + + + + + + + | Respiratory | 2022-11-04 | [facility] | NEGATIVE | (missing) | (missing) | | specimen | 09:23 | [facility] | | | | | 2019 novel | | Hospital | | | | | coronavirus | | | | | | | RNA | | | | | | | detection | | | | | | + + + + + + + + + | Result panel 58 | + + + + + + + + + | | 2022-11-04 | [facility] | NEGATIVE | (missing) | (missing) | | (unavailable | 09:23:08 | [facility] | [facility] ) | | [facility] | | | | + + + + + + + + + | Result panel 59 | + + + + + + + + + | Gram stain | 2022-11-04 | [facility] | See scanned | (missing) | (missing) | | microscopy | 12:45 | [facility] | report. | | | | | | Hospital | | | | + + + + + + + + + | Result panel 60 | + + + + + + + + + | Aerobic | 2022-11-04 | [facility] | SEE | (missing) | (missing) | | bacterial | 12:45 | [facility] | SEPARATE | | | | culture | | Hospital | REPORT | | | + + + + + + + + + | Result panel 61 | + + + + + + + + + | Bacterial | 2022-11-04 | [facility] | SEE | (missing) | (missing) | | anaerobic | 12:45 | [facility] | [facility]PARATE | | | | culture | | Hospital | REPORT | | | + + + + + + + + + | Result panel 62 | + + + + + +-----+ + + | Manual | 2022-11-04 | [facility] | 1 | (missing) | (missing) | | blood | 15:58 | [facility] | | | | | eosinophils/ | | Hospital | | | | | 100 | | | | | | | leukocytes | | | | | | + + + +-----+ + + + + | Result panel 63 | + + + + + + + + + | Blood | 2022-11-04 | [facility] | SEE | (missing) | (missing) | | leukocyte | 15:58 | [facility] | COMMENTS | | | | morphology | | Hospital | | | | | finding | | | | | | | identificati | | | | | | | on | | | | | | + + + + + + + + + | Result panel 64 | + + + + + +-------+ + + | Serum or | 2022-11-04 | [facility] | 6.4 | (missing) | (missing) | | plasma | 15:58 | [facility] | | | | | protein | | Hospital | | | | | measurement | | | | | | | (mass/volume | | | | | | | ) | | | | | | + + + +-------+ + + + + | Result panel 65 | + + + + + +-------+ + + | Serum or | 2022-11-04 | [facility] | 2.6 | (missing) | (missing) | | plasma | 15:58 | [facility] | | | | | albumin | | Hospital | | | | | measurement | | | | | | | (mass/volume | | | | | | | ) | | | | | | + + + +-------+ + + + + | Result panel 66 | + + + + + +-------+ + + | Serum | 2022-11-04 | [facility] | 3.8 | (missing) | (missing) | | globulin | 15:58 | [facility] | | | | | measurement | | Hospital | | | | | (mass/volume | | | | | | | ) | | | | | | + + + +-------+ + + + + | Result panel 67 | + + + + + +--------+ + + | Serum or | 2022-11-04 | [facility] | 0.68 | (missing) | (missing) | | plasma | 15:58 | [facility] | | | | | albumin/glob | | Hospital | | | | | ulin mass | | | | | | | ratio | | | | | | + + + +--------+ + + + + | Result panel 68 | + + + + + +-------+ + + | Serum or | 2022-11-04 | [facility] | 0.4 | (missing) | (missing) | | plasma total | 15:58 | [facility] | | | | | bilirubin | | Hospital | | | | | measurement | | | | | | | (mass/volume | | | | | | | ) | | | | | | + + + +-------+ + + + + | Result panel 69 | + + + + + +------+ + + | Serum or | 2022-11-04 | [facility] | 19 | (missing) | (missing) | | plasma | 15:58 | [facility] | | | | | aspartate | | Hospital | | | | | aminotransfe | | | | | | | rase | | | | | | | measurement | | | | | | | (enzymatic | | | | | | | activity/vol | | | | | | | ume) | | | | | | + + + +------+ + + + + | Result panel 70 | + + + + + +------+ + + | Serum or | 2022-11-04 | [facility] | <6 | (missing) | (missing) | | plasma | 15:58 | [facility] | | | | | alanine | | Hospital | | | | | aminotransfe | | | | | | | rase | | | | | | | measurement | | | | | | | (enzymatic | | | | | | | activity/vol | | | | | | | ume) | | | | | | + + + +------+ + + + + | Result panel 71 | + + + + + +------+ + + | Serum or | 2022-11-04 | [facility] | 77 | (missing) | (missing) | | plasma | 15:58 | [facility] | | | | | alkaline | | Hospital | | | | | phosphatase | | | | | | | measurement | | | | | | | (enzymatic | | | | | | | activity/vol | | | | | | | ume) | | | | | | + + + +------+ + + + + | Result panel 72 | + + + + + + + + + | Blood | 2022-11-04 | [facility] | SEE | (missing) | (missing) | | leukocyte | 15:58 | [facility] | COMMENTS | | | | morphology | | Hospital | | | | | finding | | | | | | | identificati | | | | | | | on | | | | | | + + + + + + + + + | Result panel 73 | + + + + + + + + + | | 2022-11-04 | [facility] | SEE | (missing) | (missing) | | (unavailable | 15:58:07 | [facility] | COMMENTS | | | | ) | | Hospital | | | | + + + + + + + + + | Result panel 74 | + + + + + +-----+ + + | | 2022-11-04 | [facility] | 1 | (missing) | (missing) | | (unavailable | 15:58:08 | [facility] | | | | ) | | [facility] | | | | + + + +-----+ + + + + | Result panel 75 | + + + + + + + + + | | 2022-11-04 | [facility] | SEE | (missing) | (missing) | | (unavailable | 15:58:08 | [facility] | COMMENTS | | | | ) | | [facility] | | | | + + + + + + + + + | Result panel 76 | + + + + + +-------+ + + | | 2022-11-04 | [facility] | 6.4 | (missing) | (missing) | | (unavailable | 15:58:08 | [facility] | [facility] | | [facility] | | | | + + + +-------+ + + + + | Result panel 77 | + + + + + +-------+ + + | | 2022-11-04 | [facility] | 2.6 | (missing) | (missing) | | (unavailable | 15:58:08 | [facility] | | [facility] ) | | [facility] | | | | + + + +-------+ + + + + | Result panel 78 | + + + + + +-------+ + + | | 2022-11-04 | [facility] | 3.8 | (missing) | (missing) | | (unavailable | 15:58:08 | [facility] | | [facility] | | | | + + + +-------+ + + + + | Result panel 79 | + + + + + +--------+ + + | | 2022-11-04 | [facility] | 0.68 | (missing) | (missing) | | (unavailable | 15:58:08 | [facility] | | [facility] | | | | + + + +--------+ + + + + | Result panel 80 | + + + + + +-------+ + + | | 2022-11-04 | [facility] | 0.4 | (missing) | (missing) | | (unavailable | 15:58:08 | [facility] | | [facility] | | | | + + + +-------+ + + + + | Result panel 81 | + + + + + +------+ + + | | 2022-11-04 | [facility] | 19 | (missing) | (missing) | | (unavailable | 15:58:08 | [facility] | | [facility] | | | | + + + +------+ + + + + | Result panel 82 | + + + + + +------+ + + | | 2022-11-04 | [facility] | <6 | (missing) | (missing) | | (unavailable | 15:58:08 | [facility] | [facility] | | [facility] | | | | + + + +------+ + + + + | Result panel 83 | + + + + + +------+ + + | | 2022-11-04 | [facility] | 77 | (missing) | (missing) | | (unavailable | 15:58:08 | [facility] | | [facility] | | | | + + + +------+ + + + + | Result panel 84 | + + + + + + + + + | | 2022-11-04 | [facility] | SEE | (missing) | (missing) | | (unavailable | 15:58:08 | [facility] | COMMENTS | | | | ) | | [facility] | | | | + + + + + + + + + | Result panel 85 | + + + + + + + + + | Num units | 2022-11-05 | [facility] | | (missing) | (missing) | | trans packed | 02:35 | [facility] | [phone] | | | | [facility] | | Hospital | 00E | | | + + + + + + + + + | Result panel 86 | + + + + + + + + + | Num units | 2022-11-05 | [facility] | | (missing) | (missing) | | trans packed | 02:35 | [facility] | [phone] | | | | [facility] | | Hospital | 00J | | | + + + + + + + + + | Result panel 87 | + + + + + + + + + | Num units | 2022-11-05 | [facility] | | (missing) | (missing) | | trans packed | 02:35 | [facility] | [id number] | | | | RBC | | Hospital | 00V | | | + + + + + + + + + | Result panel 88 | + + + + + + + + + | Num units | 2022-11-05 | [facility] | | (missing) | (missing) | | trans packed | 02:35 | [facility] | [phone] | | | | RBC | | Hospital | 00Q | | | + + + + + + + + + | Result panel 89 | + + + + + +------+ + + | Manual | 2022-11-05 | [facility] | 15 | (missing) | (missing) | | blood band | 02:35 | [facility] | | | | | neutrophils | | Hospital | | | | | form/100 | | | | | | | leukocytes | | | | | | + + + +------+ + + + + | Result panel 90 | + + + + + +------+ + + | Manual | 2022-11-05 | [facility] | 75 | (missing) | (missing) | | blood | 02:35 | [facility] | | | | | segmented | | Hospital | | | | | neutrophils/ | | | | | | | 100 | | | | | | | leukocytes | | | | | | + + + +------+ + + + + | Result panel 91 | + + + + + +-----+ + + | Manual | 2022-11-05 | [facility] | 7 | (missing) | (missing) | | blood | 02:35 | [facility] | | | | | lymphocytes/ | | Hospital | | | | | 100 | | | | | | | leukocytes | | | | | | + + + +-----+ + + + + | Result panel 92 | + + + + + +-----+ + + | Manual | 2022-11-05 | [facility] | 2 | (missing) | (missing) | | blood | 02:35 | [facility] | | | | | monocytes/10 | | Hospital | | | | | 0 leukocytes | | | | | | | | | | | | | + + + +-----+ + + + + | Result panel 93 | + + + + + +------+ + + | Manual | 2022-11-05 | [facility] | 15 | (missing) | (missing) | | blood band | 02:35 | [facility] | | | | | neutrophils | | Hospital | | | | | form/100 | | | | | | | leukocytes | | | | | | + + + +------+ + + + + | Result panel 94 | + + + + + + + + + | Blood | 2022-11-05 | [facility] | PRESENT | (missing) | (missing) | | anisocytosis | 02:35 | [facility] | | | | | detection | | Hospital | | | | | by light | | | | | | | microscopy | | | | | | + + + + + + + + + | Result panel 95 | + + + + + + + + + | | 2022-11-05 | [facility] | PRESENT | (missing) | (missing) | | Hypochromati | 02:35 | [facility] | | | | | c red blood | | Hospital | | | | | cell | | | | | | | detection | | | | | | + + + + + + + + + | Result panel 96 | + + + + + + + + + | Serum or | 2022-11-05 | [facility] | NEGATIVE | (missing) | (missing) | | plasma | 02:35 | [facility] | | | | | indirect | | Hospital | | | | | antiglobulin | | | | | | | test using | | | | | | | poly | | | | | | | specific | | | | | | | reagent | | | | | | + + + + + + + + + | Result panel 97 | + + + + + + + + + | Immediate | 2022-11-05 | [facility] | COMPATIBLE | (missing) | (missing) | | spin | 02:35 | [facility] | | | | | crossmatch | | Hospital | | | | + + + + + + + + + | Result panel 98 | + + + + + + + + + | Immediate | 2022-11-05 | [facility] | COMPATIBLE | (missing) | (missing) | | spin | 02:35 | [facility] | | | | | crossmatch | | Hospital | | | | + + + + + + + + + | Result panel 99 | + + + + + + + + + | Immediate | 2022-11-05 | [facility] | COMPATIBLE | (missing) | (missing) | | spin | 02:35 | [facility] | | | | | crossmatch | | Hospital | | | | + + + + + + + + + | Result panel 100 | + + + + + + + + + | Immediate | 2022-11-05 | [facility] | COMPATIBLE | (missing) | (missing) | | spin | 02:35 | [facility] | | | | | crossmatch | | Hospital | | | | + + + + + + + + + | Result panel 101 | + + + + + + + + + | Immediate | 2022-11-05 | [facility] | COMPATIBLE | (missing) | (missing) | | spin | 02:35 | [facility] | | | | | crossmatch | | Hospital | | | | + + + + + + + + + | Result panel 102 | + + + + + + + + + | Immediate | 2022-11-05 | [facility] | COMPATIBLE | (missing) | (missing) | | spin | 02:35 | [facility] | | | | | crossmatch | | Hospital | | | | + + + + + + + + + | Result panel 103 | + + + + + + + + + | Num units | 2022-11-05 | [facility] | | (missing) | (missing) | | trans packed | 02:35 | [facility] | [phone] | | | | RBC | | Hospital | 00E | | | + + + + + + + + + | Result panel 104 | + + + + + + + + + | Num units | 2022-11-05 | [facility] | | (missing) | (missing) | | trans packed | 02:35 | [facility] | [phone] | | | | RBC | | Hospital | 00J | | | + + + + + + + + + | Result panel 105 | + + + + + + + + + | Num units | 2022-11-05 | [facility] | | (missing) | (missing) | | trans packed | 02:35 | [facility] | [id number] | | | | RBC | | Hospital | 00V | | | + + + + + + + + + | Result panel 106 | + + + + + + + + + | Num units | 2022-11-05 | [facility] | | (missing) | (missing) | | trans packed | 02:35 | [facility] | [phone] | | | | RBC | | Hospital | 00Q | | | + + + + + + + + + | Result panel 107 | + + + + + + + + + | Transf Band | 2022-11-05 | [facility] | BLOOD IN | (missing) | (missing) | | Num Patient | 02:35 | [facility] | LAB | | | | | | Hospital | | | | + + + + + + + + + | Result panel 108 | + + + + + + + + + | | 2022-11-05 | [facility] | PRESENT | (missing) | (missing) | | Hypochromati | 02:35 | [facility] | | | | | c red blood | | Hospital | | | | | cell | | | | | | | detection | | | | | | + + + + + + + + + | Result panel 109 | + + + + + + + + + | Immediate | 2022-11-05 | [facility] | COMPATIBLE | (missing) | (missing) | | spin | 02:35 | [facility] | | | | | crossmatch | | Hospital | | | | + + + + + + + + + | Result panel 110 | + + + + + + + + + | Immediate | 2022-11-05 | [facility] | COMPATIBLE | (missing) | (missing) | | spin | 02:35 | [facility] | | | | | crossmatch | | Hospital | | | | + + + + + + + + + | Result panel 111 | + + + + + + + + + | Immediate | 2022-11-05 | [facility] | COMPATIBLE | (missing) | (missing) | | spin | 02:35 | [facility] | | | | | crossmatch | | Hospital | | | | + + + + + + + + + | Result panel 112 | + + + + + + + + + | Immediate | 2022-11-05 | [facility] | COMPATIBLE | (missing) | (missing) | | spin | 02:35 | [facility] | | | | | crossmatch | | Hospital | | | | + + + + + + + + + | Result panel 113 | + + + + + + + + + | Immediate | 2022-11-05 | [facility] | COMPATIBLE | (missing) | (missing) | | spin | 02:35 | [facility] | | | | | crossmatch | | Hospital | | | | + + + + + + + + + | Result panel 114 | + + + + + + + + + | Immediate | 2022-11-05 | [facility] | COMPATIBLE | (missing) | (missing) | | spin | 02:35 | [facility] | | | | | crossmatch | | Hospital | | | | + + + + + + + + + | Result panel 115 | + + + + + +------+ + + | | 2022-11-05 | [facility] | 15 | (missing) | (missing) | | (unavailable | 02:35:07 | [facility] | | | | | ) | | Hospital | | | | + + + +------+ + + + + | Result panel 116 | + + + + + + + + + | | 2022-11-05 | [facility] | PRESENT | (missing) | (missing) | | (unavailable | 02:35:07 | [facility] | | | | | ) | | Hospital | | | | + + + + + + + + + | Result panel 117 | + + + + + + + + + | | 2022-11-05 | [facility] | COMPATIBLE | (missing) | (missing) | | (unavailable | 02:35:07 | [facility] | | | | | ) | | Hospital | | | | + + + + + + + + + | Result panel 118 | + + + + + + + + + | | 2022-11-05 | [facility] | COMPATIBLE | (missing) | (missing) | | (unavailable | 02:35:07 | [facility] | | | | | ) | | Hospital | | | | + + + + + + + + + | Result panel 119 | + + + + + + + + + | | 2022-11-05 | [facility] | COMPATIBLE | (missing) | (missing) | | (unavailable | 02:35:07 | [facility] | | | | | ) | | Hospital | | | | + + + + + + + + + | Result panel 120 | + + + + + + + + + | | 2022-11-05 | [facility] | COMPATIBLE | (missing) | (missing) | | (unavailable | 02:35:07 | [facility] | | | | | ) | | Hospital | | | | + + + + + + + + + | Result panel 121 | + + + + + + + + + | | 2022-11-05 | [facility] | COMPATIBLE | (missing) | (missing) | | (unavailable | 02:35:07 | [facility] | | | | | ) | | Hospital | | | | + + + + + + + + + | Result panel 122 | + + + + + + + + + | | 2022-11-05 | [facility] | COMPATIBLE | (missing) | (missing) | | (unavailable | 02:35:07 | [facility] | | | | | ) | | Hospital | | | | + + + + + + + + + | Result panel 123 | + + + + + + + + + | | 2022-11-05 | [facility] | | (missing) | (missing) | | (unavailable | 02:35:07 | [facility] | [phone] | | | | ) | | Hospital | 00E | | | + + + + + + + + + | Result panel 124 | + + + + + + + + + | | 2022-11-05 | [facility] | | (missing) | (missing) | | (unavailable | 02:35:07 | [facility] | [phone] | | | | ) | | Hospital | 00J | | | + + + + + + + + + | Result panel 125 | + + + + + + + + + | | 2022-11-05 | [facility] | | (missing) | (missing) | | (unavailable | 02:35:07 | [facility] | [phone] | | | | ) | | Hospital | 00V | | | + + + + + + + + + | Result panel 126 | + + + + + + + + + | | 2022-11-05 | [facility] | | (missing) | (missing) | | (unavailable | 02:35:07 | [facility] | [phone] | | | | ) | | Hospital | 00Q | | | + + + + + + + + + | Result panel 127 | + + + + + +------+ + + | | 2022-11-05 | [facility] | 75 | (missing) | (missing) | | (unavailable | 02:35:08 | [facility] | | | | | ) | | [facility] | | | | + + + +------+ + + + + | Result panel 128 | + + + + + +-----+ + + | | 2022-11-05 | [facility] | 7 | (missing) | (missing) | | (unavailable | 02:35:08 | [facility] | | | | | ) | | [facility] | | | | + + + +-----+ + + + + | Result panel 129 | + + + + + +-----+ + + | | 2022-11-05 | [facility] | 2 | (missing) | (missing) | | (unavailable | 02:35:08 | [facility] | | | | | ) | | Hospital | | | | + + + +-----+ + + + + | Result panel 130 | + + + + + +------+ + + | | 2022-11-05 | [facility] | 15 | (missing) | (missing) | | (unavailable | 02:35:08 | [facility] | | | | | ) | | Hospital | | | | + + + +------+ + + + + | Result panel 131 | + + + + + + + + + | | 2022-11-05 | [facility] | PRESENT | (missing) | (missing) | | (unavailable | 02:35:08 | [facility] | | | | | ) | | [facility] | | | | + + + + + + + + + | Result panel 132 | + + + + + + + + + | | 2022-11-05 | [facility] | PRESENT | (missing) | (missing) | | (unavailable | 02:35:08 | [facility] | | | | | ) | | Hospital | | | | + + + + + + + + + | Result panel 133 | + + + + + + + + + | | 2022-11-05 | [facility] | NEGATIVE | (missing) | (missing) | | (unavailable | 02:35:08 | [facility] | | | | | ) | | Hospital | | | | + + + + + + + + + | Result panel 134 | + + + + + + + + + | | 2022-11-05 | [facility] | COMPATIBLE | (missing) | (missing) | | (unavailable | 02:35:08 | [facility] | | | | | ) | | [facility] | | | | + + + + + + + + + | Result panel 135 | + + + + + + + + + | | 2022-11-05 | [facility] | COMPATIBLE | (missing) | (missing) | | (unavailable | 02:35:08 | [facility] | | | | | ) | | [facility] | | | | + + + + + + + + + | Result panel 136 | + + + + + + + + + | | 2022-11-05 | [facility] | COMPATIBLE | (missing) | (missing) | | (unavailable | 02:35:08 | [facility] | | | | | ) | | [facility] | | | | + + + + + + + + + | Result panel 137 | + + + + + + + + + | | 2022-11-05 | [facility] | COMPATIBLE | (missing) | (missing) | | (unavailable | 02:35:08 | [facility] | | | | | ) | | [facility] | | | | + + + + + + + + + | Result panel 138 | + + + + + + + + + | | 2022-11-05 | [facility] | COMPATIBLE | (missing) | (missing) | | (unavailable | 02:35:08 | [facility] | | | | | ) | | [facility] | | | | + + + + + + + + + | Result panel 139 | + + + + + + + + + | | 2022-11-05 | [facility] | COMPATIBLE | (missing) | (missing) | | (unavailable | 02:35:08 | [facility] | | | | | ) | | [facility] | | | | + + + + + + + + + | Result panel 140 | + + + + + + + + + | | 2022-11-05 | [facility] | | (missing) | (missing) | | (unavailable | 02:35:08 | [facility] | [phone] | | | | ) | | Hospital | 00E | | | + + + + + + + + + | Result panel 141 | + + + + + + + + + | | 2022-11-05 | [facility] | | (missing) | (missing) | | (unavailable | 02:35:08 | [facility] | [phone] | | | | ) | | Hospital | 00J | | | + + + + + + + + + | Result panel 142 | + + + + + + + + + | | 2022-11-05 | [facility] | | (missing) | (missing) | | (unavailable | 02:35:08 | [facility] | [id number] | | | | ) | | Hospital | 00V | | | + + + + + + + + + | Result panel 143 | + + + + + + + + + | | 2022-11-05 | [facility] | | (missing) | (missing) | | (unavailable | 02:35:08 | [facility] | [phone] | | | | ) | | Hospital | 00Q | | | + + + + + + + + + | Result panel 144 | + + + + + + + + + | | 2022-11-05 | [facility] | BLOOD IN | (missing) | (missing) | | (unavailable | 02:35:08 | [facility] | LAB | | | | ) | | Hospital | | | | + + + + + + + + + | Result panel 145 | + + + + + +------+ + + | | 2022-11-05 | [facility] | 15 | (missing) | (missing) | | (unavailable | 02:35:08 | [facility] | | | | | ) | | [facility] | | | | + + + +------+ + + + + | Result panel 146 | + + + + + + + + + | | 2022-11-05 | [facility] | PRESENT | (missing) | (missing) | | (unavailable | 02:35:08 | [facility] | | | | | ) | | Hospital | | | | + + + + + + + + + | Result panel 147 | + + + + + + + + + | | 2022-11-05 | [facility] | COMPATIBLE | (missing) | (missing) | | (unavailable | 02:35:08 | [facility] | | | | | ) | | Hospital | | | | + + + + + + + + + | Result panel 148 | + + + + + + + + + | | 2022-11-05 | [facility] | COMPATIBLE | (missing) | (missing) | | (unavailable | 02:35:08 | [facility] | | | | | ) | | Hospital | | | | + + + + + + + + + | Result panel 149 | + + + + + + + + + | | 2022-11-05 | [facility] | COMPATIBLE | (missing) | (missing) | | (unavailable | 02:35:08 | [facility] | | | | | ) | | Hospital | | | | + + + + + + + + + | Result panel 150 | + + + + + + + + + | | 2022-11-05 | [facility] | COMPATIBLE | (missing) | (missing) | | (unavailable | 02:35:08 | [facility] | | | | | ) | | Hospital | | | | + + + + + + + + + | Result panel 151 | + + + + + + + + + | | 2022-11-05 | [facility] | COMPATIBLE | (missing) | (missing) | | (unavailable | 02:35:08 | [facility] | | | | | ) | | Hospital | | | | + + + + + + + + + | Result panel 152 | + + + + + + + + + | | 2022-11-05 | [facility] | COMPATIBLE | (missing) | (missing) | | (unavailable | 02:35:08 | [facility] | | | | | ) | | Hospital | | | | + + + + + + + + + | Result panel 153 | + + + + + + + + + | | 2022-11-05 | [facility] | | (missing) | (missing) | | (unavailable | 02:35:08 | [facility] | [phone] | | | | ) | | Hospital | 00E | | | + + + + + + + + + | Result panel 154 | + + + + + + + + + | | 2022-11-05 | [facility] | | (missing) | (missing) | | (unavailable | 02:35:08 | [facility] | [phone] | | | | ) | | Hospital | 00J | | | + + + + + + + + + | Result panel 155 | + + + + + + + + + | | 2022-11-05 | [facility] | | (missing) | (missing) | | (unavailable | 02:35:08 | [facility] | [phone] | | | | ) | | Hospital | 00V | | | + + + + + + + + + | Result panel 156 | + + + + + + + + + | | 2022-11-05 | [facility] | | (missing) | (missing) | | (unavailable | 02:35:08 | [facility] | [phone] | | | | ) | | Hospital | 00Q | | | + + + + + + + + + | Result panel 157 | + + + + + +-----+ + + | Blood ABO | 2022-11-05 | [facility] | B | (missing) | (missing) | | group typing | 06:23 | [facility] | | | | | | | Hospital | | | | + + + +-----+ + + + + | Result panel 158 | + + + + + + + + + | Rh blood | 2022-11-05 | [facility] | POSITIVE | (missing) | (missing) | | group typing | 06:23 | [facility] | | | | | | | Hospital | | | | + + + + + + + + + | Result panel 159 | + + + + + +-----+ + + | | 2022-11-05 | [facility] | B | (missing) | (missing) | | (unavailable | 06:23:08 | [facility] | | | | | ) | | Hospital | | | | + + + +-----+ + + + + | Result panel 160 | + + + + + + + + + | | 2022-11-05 | [facility] | POSITIVE | (missing) | (missing) | | (unavailable | 06:23:08 | [facility] | | | | | ) | | Hospital | | | | + + + + + + + + + | Result panel 161 | + + + + + + + + + | Blood blood | 2022-11-05 | [facility] | SEE COMMENT | (missing) | (missing) | | smear | 08:04 | [facility] | | | | | finding | | Hospital | | | | | identificati | | | | | | | on by light | | | | | | | microscopy | | | | | | + + + + + + + + + | Result panel 162 | + + + + + + + + + | Blood blood | 2022-11-05 | [facility] | SEE COMMENT | (missing) | (missing) | | smear | 08:04 | [facility] | | | | | finding | | Hospital | | | | | identificati | | | | | | | on by light | | | | | | | microscopy | | | | | | + + + + + + + + + | Result panel 163 | + + + + + + + + + | | 2022-11-05 | [facility] | SEE COMMENT | (missing) | (missing) | | (unavailable | 08:04:07 | [facility] | | | | | ) | | Hospital | | | | + + + + + + + + + | Result panel 164 | + + + + + + + + + | | 2022-11-05 | [facility] | SEE COMMENT | (missing) | (missing) | | (unavailable | 08:04:08 | [facility] | | | | | ) | | Hospital | | | | + + + + + + + + + | Result panel 165 | + + + + + + + + + | | 2022-11-05 | [facility] | SEE COMMENT | (missing) | (missing) | | (unavailable | 08:04:08 | [facility] | | | | | ) | | Hospital | | | | + + + + + + + + + | Result panel 166 | + + + + + +-------+ + + | Serum or | 2022-11-07 | [facility] | 119 | (missing) | (missing) | | plasma | 05:16 | [facility] | | | | | glucose | | Hospital | | | | | measurement | | | | | | | (mass/volume | | | | | | | ) | | | | | | + + + +-------+ + + + + | Result panel 167 | + + + + + +-----+ + + | Serum or | 2022-11-07 | [facility] | 8 | (missing) | (missing) | | plasma urea | 05:16 | [facility] | | | | | nitrogen | | Hospital | | | | | measurement | | | | | | | (mass/volume | | | | | | | ) | | | | | | + + + +-----+ + + + + | Result panel 168 | + + + + + +--------+ + + | Serum or | 2022-11-07 | [facility] | 1.10 | (missing) | (missing) | | plasma | 05:16 | [facility] | | | | | creatinine | | Hospital | | | | | measurement | | | | | | | (mass/volume | | | | | | | ) | | | | | | + + + +--------+ + + + + | Result panel 169 | + + + + + +------+ + + | Glomerular | 2022-11-07 | [facility] | 66 | (missing) | (missing) | | filtration | 05:16 | [facility] | | | | | rate/1.73 sq | | Hospital | | | | | M.predicted | | | | | | | [Volume | | | | | | | Rate/Area] | | | | | | | inSerum, | | | | | | | Plasma or | | | | | | | Blood by | | | | | | | Creatinine-b | | | | | | | ased formula | | | | | | | (CKD-EPI | | | | | | | 2020) | | | | | | + + + +------+ + + + + | Result panel 170 | + + + + + +--------+ + + | Serum or | 2022-11-07 | [facility] | 7.27 | (missing) | (missing) | | plasma urea | 05:16 | [facility] | | | | | nitrogen/cre | | Hospital | | | | | atinine mass | | | | | | | ratio | | | | | | + + + +--------+ + + + + | Result panel 171 | + + + + + +-------+ + + | Serum or | 2022-11-07 | [facility] | 139 | (missing) | (missing) | | plasma | 05:16 | [facility] | | | | | sodium | | Hospital | | | | | measurement | | | | | | | (moles/volum | | | | | | | e) | | | | | | + + + +-------+ + + + + | Result panel 172 | + + + + + +-------+ + + | Serum or | 2022-11-07 | [facility] | 3.8 | (missing) | (missing) | | plasma | 05:16 | [facility] | | | | | potassium | | Hospital | | | | | measurement | | | | | | | (moles/volum | | | | | | | e) | | | | | | + + + +-------+ + + + + | Result panel 173 | + + + + + +-------+ + + | Serum or | 2022-11-07 | [facility] | 103 | (missing) | (missing) | | plasma | 05:16 | [facility] | | | | | chloride | | Hospital | | | | | measurement | | | | | | | (moles/volum | | | | | | | e) | | | | | | + + + +-------+ + + + + | Result panel 174 | + + + + + +------+ + + | Serum or | 2022-11-07 | [facility] | 29 | (missing) | (missing) | | plasma | 05:16 | [facility] | | | | | carbon | | Hospital | | | | | dioxide, | | | | | | | total | | | | | | | measurement | | | | | | | (moles/volum | | | | | | | e) | | | | | | + + + +------+ + + + + | Result panel 175 | + + + + + +--------+ + + | Serum or | 2022-11-07 | [facility] | 10.8 | (missing) | (missing) | | plasma anion | 05:16 | [facility] | | | | | gap 4 | | Hospital | | | | + + + +--------+ + + + + | Result panel 176 | + + + + + +-------+ + + | Serum or | 2022-11-07 | [facility] | 7.9 | (missing) | (missing) | | plasma | 05:16 | [facility] | | | | | calcium | | Hospital | | | | | measurement | | | | | | | (mass/volume | | | | | | | ) | | | | | | + + + +-------+ + + + + | Result panel 177 | + + + + + +-------+---------+ + | | 2022-11-07 | [facility] | 119 | mg/dL | (missing) | | (unavailable | 05:16:08 | [facility] | | | | | ) | | Hospital | | | | + + + +-------+---------+ + + + | Result panel 178 | + + + + + +-----+---------+ + | | 2022-11-07 | [facility] | 8 | mg/dL | (missing) | | (unavailable | 05:16:08 | [facility] | | | | | ) | | Hospital | | | | + + + +-----+---------+ + + + | Result panel 179 | + + + + + +--------+---------+ + | | 2022-11-07 | [facility] | 1.10 | mg/dL | (missing) | | (unavailable | 05:16:08 | [facility] | | | | | ) | | Hospital | | | | + + + +--------+---------+ + + + | Result panel 180 | + + + + + +------+ + + | | 2022-11-07 | [facility] | 66 | (missing) | (missing) | | (unavailable | 05:16:08 | [facility] | | | | | ) | | Hospital | | | | + + + +------+ + + + + | Result panel 181 | + + + + + +--------+ + + | | 2022-11-07 | [facility] | 7.27 | (missing) | (missing) | | (unavailable | 05:16:08 | [facility] | | | | ) | | Hospital | | | | + + + +--------+ + + + + | Result panel 182 | + + + + + +-------+ + + | | 2022-11-07 | [facility] | 139 | (missing) | (missing) | | (unavailable | 05:16:08 | [facility] | | | | ) | | Hospital | | | | + + + +-------+ + + + + | Result panel 183 | + + + + + +-------+ + + | | 2022-11-07 | [facility] | 3.8 | (missing) | (missing) | | (unavailable | 05:16:08 | [facility] | | | | | ) | | Hospital | | | | + + + +-------+ + + + + | Result panel 184 | + + + + + +-------+ + + | | 2022-11-07 | [facility] | 103 | (missing) | (missing) | | (unavailable | 05:16:08 | [facility] | | | | | ) | | Hospital | | | | + + + +-------+ + + + + | Result panel 185 | + + + + + +------+ + + | | 2022-11-07 | [facility] | 29 | (missing) | (missing) | | (unavailable | 05:16:08 | [facility] | | | | ) | | [facility] | | | | + + + +------+ + + + + | Result panel 186 | + + + + + +--------+ + + | | 2022-11-07 | [facility] | 10.8 | (missing) | (missing) | | (unavailable | 05:16:08 | [facility] | | | | + + + +--------+ + + + + | Result panel 187 | + + + + + +-------+---------+ + | | 2022-11-07 | [facility] | 7.9 | mg/dL | (missing) | | (unavailable | 05:16:08 | [facility] | | | | + + + +-------+---------+ + + + | Result panel 188 | + + + + + +--------+ + + | | 2022-11-08 | [facility] | 12.9 | (missing) | (missing) | | (unavailable | 05:21:08 | [facility] | | | | + + + +--------+ + + + + | Result panel 189 | + + + + + +--------+ + + | | 2022-11-08 | [facility] | 3.36 | (missing) | (missing) | | (unavailable | 05:21:08 | [facility] | | | | + + + +--------+ + + + + | Result panel 190 | + + + + + +-------+ + + | | 2022-11-08 | [facility] | 9.3 | (missing) | (missing) | | (unavailable | 05:21:08 | [facility] | | | | + + + +-------+ + + + + | Result panel 191 | + + + + + +--------+ + + | | 2022-11-08 | [facility] | 28.2 | (missing) | (missing) | | (unavailable | 05:21:08 | [facility] | | | | + + + +--------+ + + + + | Result panel 192 | + + + + + +--------+ + + | | 2022-11-08 | [facility] | 83.8 | (missing) | (missing) | | (unavailable | 05:21:08 | [facility] | | | | + + + +--------+ + + + + | Result panel 193 | + + + + + +--------+ + + | | 2022-11-08 | [facility] | 27.7 | (missing) | (missing) | | (unavailable | 05:21:08 | [facility] | | | | + + + +--------+ + + + + | Result panel 194 | + + + + + +--------+ + + | | 2022-11-08 | [facility] | 33.0 | (missing) | (missing) | | (unavailable | 05:21:08 | [facility] | | | | + + + +--------+ + + + + | Result panel 195 | + + + + + +--------+ + + | | 2022-11-08 | [facility] | 16.4 | (missing) | (missing) | | (unavailable | 05:21:08 | [facility] | | | | + + + +--------+ + + + + | Result panel 196 | + + + + + +-------+ + + | | 2022-11-08 | [facility] | 301 | (missing) | (missing) | | (unavailable | 05:21:08 | [facility] | | | | + + + +-------+ + + + + | Result panel 197 | + + + + + +--------+ + + | | 2022-11-08 | [facility] | 74.8 | (missing) | (missing) | | (unavailable | 05:21:08 | [facility] | | | | + + + +--------+ + + + + | Result panel 198 | + + + + + +--------+ + + | | 2022-11-08 | [facility] | 13.1 | (missing) | (missing) | | (unavailable | 05:21:08 | [facility] | | | | + + + +--------+ + + + + | Result panel 199 | + + + + + +-------+ + + | | 2022-11-08 | [facility] | 5.1 | (missing) | (missing) | | (unavailable | 05:21:08 | [facility] | | | | + + + +-------+ + + + + | Result panel 200 | + + + + + +-------+ + + | | 2022-11-08 | [facility] | 6.1 | (missing) | (missing) | | (unavailable | 05:21:08 | [facility] | | | | + + + +-------+ + + + + | Result panel 201 | + + + + + +-------+ + + | | 2022-11-08 | [facility] | 0.9 | (missing) | (missing) | | (unavailable | 05:21:08 | [facility] | | | | + + + +-------+ + + + + | Result panel 202 | + + + + + + + + + | Respiratory | 2022-11-25 | [facility] | NEGATIVE | (missing) | (missing) | | specimen | 09:00 | [facility] | | | | 2019 novel | | [facility] | | | | | coronavirus | | | | | | | RNA | | | | | | | detection | | | | | | + + + + + + + + + | Result panel 203 | + + + + + + + + + | | 2022-11-25 | [facility] | NEGATIVE | (missing) | (missing) | | (unavailable | 09:00:07 | [facility] | | | | + + + + + + + + + | Result panel 204 | + + + + + + + + + | | 2022-11-25 | [facility] | NEGATIVE | (missing) | (missing) | | (unavailable | 09:00:08 | [facility] | | | | + + + + + + + + + | Result panel 205 | + + + + + +-------+ + + | Serum or | 2022-11-25 | [facility] | 117 | (missing) | (missing) | | plasma | 09:30 | [facility] | | | | | glucose | | Hospital | | | | | measurement | | | | | | | (mass/volume | | | | | | | ) | | | | | | + + + +-------+ + + + + | Result panel 206 | + + + + + +------+ + + | Serum or | 2022-11-25 | [facility] | 13 | (missing) | (missing) | | plasma urea | 09:30 | [facility] | | | | | nitrogen | | Hospital | | | | | measurement | | | | | | | (mass/volume | | | | | | | ) | | | | | | + + + +------+ + + + + | Result panel 207 | + + + + + +--------+ + + | Serum or | 2022-11-25 | [facility] | 0.98 | (missing) | (missing) | | plasma | 09:30 | [facility] | | | | creatinine | | [facility] | | | | | measurement | | | | | | | (mass/volume | | | | | | | ) | | | | | | + + + +--------+ + + + + | Result panel 208 | + + + + + +------+ + + | Glomerular | 2022-11-25 | [facility] | 76 | (missing) | (missing) | | filtration | 09:30 | [facility] | | | | | rate/1.73 sq | | Hospital | | | | | M.predicted | | | | | | | [Volume | | | | | | | Rate/Area] | | | | | | | inSerum, | | | | | | | Plasma or | | | | | | | Blood by | | | | | | | Creatinine-b | | | | | | | ased formula | | | | | | | (CKD-EPI | | | | | | | 2020) | | | | | | + + + +------+ + + + + | Result panel 209 | + + + + + +---------+ + + | Serum or | 2022-11-25 | [facility] | 13.26 | (missing) | (missing) | | plasma urea | 09:30 | [facility] | | | | | nitrogen/cre | | Hospital | | | | | atinine mass | | | | | | | ratio | | | | | | + + + +---------+ + + + + | Result panel 210 | + + + + + +-------+ + + | Serum or | 2022-11-25 | [facility] | 139 | (missing) | (missing) | | plasma | 09:30 | [facility] | | | | | sodium | | [facility] | | | | | measurement | | | | | | | (moles/volum | | | | | | | e) | | | | | | + + + +-------+ + + + + | Result panel 211 | + + + + + +-------+ + + | Serum or | 2022-11-25 | [facility] | 4.5 | (missing) | (missing) | | plasma | 09:30 | [facility] | | | | | potassium | | [facility] | | | | | measurement | | | | | | | (moles/volum | | | | | | | e) | | | | | | + + + +-------+ + + + + | Result panel 212 | + + + + + +-------+ + + | Serum or | 2022-11-25 | [facility] | 104 | (missing) | (missing) | | plasma | 09:30 | [facility] | | | | | chloride | | Hospital | | | | | measurement | | | | | | | (moles/volum | | | | | | | e) | | | | | | + + + +-------+ + + + + | Result panel 213 | + + + + + +------+ + + | Serum or | 2022-11-25 | [facility] | 26 | (missing) | (missing) | | plasma | 09:30 | [facility] | | | | | carbon | | Hospital | | | | | dioxide, | | | | | | | total | | | | | | | measurement | | | | | | | (moles/volum | | | | | | | e) | | | | | | + + + +------+ + + + + | Result panel 214 | + + + + + +--------+ + + | Serum or | 2022-11-25 | [facility] | 13.5 | (missing) | (missing) | | plasma anion | 09:30 | [facility] | | | | | gap 4 | | Hospital | | | | + + + +--------+ + + + + | Result panel 215 | + + + + + +-------+ + + | Serum or | 2022-11-25 | [facility] | 9.3 | (missing) | (missing) | | plasma | 09:30 | [facility] | | | | | calcium | | Hospital | | | | | measurement | | | | | | | (mass/volume | | | | | | | ) | | | | | | + + + +-------+ + + + + | Result panel 216 | + + + + + +-------+ + + | Serum or | 2022-11-25 | [facility] | 7.5 | (missing) | (missing) | | plasma | 09:30 | [facility] | | | | | protein | | Hospital | | | | | measurement | | | | | | | (mass/volume | | | | | | | ) | | | | | | + + + +-------+ + + + + | Result panel 217 | + + + + + +-------+ + + | Serum or | 2022-11-25 | [facility] | 2.5 | (missing) | (missing) | | plasma | 09:30 | [facility] | | | | | albumin | | Hospital | | | | | measurement | | | | | | | (mass/volume | | | | | | | ) | | | | | | + + + +-------+ + + + + | Result panel 218 | + + + + + +-------+ + + | Serum | 2022-11-25 | [facility] | 5.0 | (missing) | (missing) | | globulin | 09:30 | [facility] | | | | | measurement | | Hospital | | | | | (mass/volume | | | | | | | ) | | | | | | + + + +-------+ + + + + | Result panel 219 | + + + + + +--------+ + + | Serum or | 2022-11-25 | [facility] | 0.50 | (missing) | (missing) | | plasma | 09:30 | [facility] | | | | | albumin/glob | | Hospital | | | | | ulin mass | | | | | | | ratio | | | | | | + + + +--------+ + + + + | Result panel 220 | + + + + + +-------+ + + | Serum or | 2022-11-25 | [facility] | 0.2 | (missing) | (missing) | | plasma total | 09:30 | [facility] | | | | | bilirubin | | Hospital | | | | | measurement | | | | | | | (mass/volume | | | | | | | ) | | | | | | + + + +-------+ + + + + | Result panel 221 | + + + + + +------+ + + | Serum or | 2022-11-25 | [facility] | 16 | (missing) | (missing) | | plasma | 09:30 | [facility] | | | | | aspartate | | Hospital | | | | | aminotransfe | | | | | | | rase | | | | | | | measurement | | | | | | | (enzymatic | | | | | | | activity/vol | | | | | | | ume) | | | | | | + + + +------+ + + + + | Result panel 222 | + + + + + +------+ + + | Serum or | 2022-11-25 | [facility] | 18 | (missing) | (missing) | | plasma | 09:30 | [facility] | | | | | alanine | | Hospital | | | | | aminotransfe | | | | | | | rase | | | | | | | measurement | | | | | | | (enzymatic | | | | | | | activity/vol | | | | | | | ume) | | | | | | + + + +------+ + + + + | Result panel 223 | + + + + + +------+ + + | Serum or | 2022-11-25 | [facility] | 83 | (missing) | (missing) | | plasma | 09:30 | [facility] | | | | | alkaline | | Hospital | | | | | phosphatase | | | | | | | measurement | | | | | | | (enzymatic | | | | | | | activity/vol | | | | | | | ume) | | | | | | + + + +------+ + + + + | Result panel 224 | + + + + + +-----+ + + | Blood ABO | 2022-11-25 | [facility] | B | (missing) | (missing) | | group typing | 09:30 | [facility] | | [facility] | | | | + + + +-----+ + + + + | Result panel 225 | + + + + + + + + + | Rh blood | 2022-11-25 | [facility] | POSITIVE | (missing) | (missing) | | group typing | 09:30 | [facility] | | [facility] | | | | + + + + + + + + + | Result panel 226 | + + + + + + + + + | Serum or | 2022-11-25 | [facility] | NEGATIVE | (missing) | (missing) | | plasma | 09:30 | [facility] | | | | | indirect | | Hospital | | | | | antiglobulin | | | | | | | test using | | | | | | | poly | | | | | | | specific | | | | | | | reagent | | | | | | + + + + + + + + + | Result panel 227 | + + + + + + + + + | Transf Band | 2022-11-25 | [facility] | BLOOD IN | (missing) | (missing) | | Num Patient | 09:30 | [facility] | | [facility] | | | | + + + + + + + + + | Result panel 228 | + + + + + +-------+---------+ + | | 2022-11-25 | [facility] | 117 | mg/dL | (missing) | | (unavailable | 09:30:07 | [facility] | | [facility] | | | | + + + +-------+---------+ + + + | Result panel 229 | + + + + + +------+---------+ + | | 2022-11-25 | [facility] | 13 | mg/dL | (missing) | | (unavailable | 09:30:07 | [facility] | [facility] | | | | + + + +------+---------+ + + + | Result panel 230 | + + + + + +--------+---------+ + | | 2022-11-25 | [facility] | 0.98 | mg/dL | (missing) | | (unavailable | 09:30:07 | [facility] | | | | + + + +--------+---------+ + + + | Result panel 231 | + + + + + +------+ + + | | 2022-11-25 | [facility] | 76 | (missing) | (missing) | | (unavailable | 09:30:07 | [facility] | [facility] | | | | + + + +------+ + + + + | Result panel 232 | + + + + + +---------+ + + | | 2022-11-25 | [facility] | 13.26 | (missing) | (missing) | | (unavailable | 09:30:07 | [facility] | [facility] | | | | + + + +---------+ + + + + | Result panel 233 | + + + + + +-------+ + + | | 2022-11-25 | [facility] | 139 | (missing) | (missing) | | (unavailable | 09:30:07 | [facility] | [facility] | | | | + + + +-------+ + + + + | Result panel 234 | + + + + + +-------+ + + | | 2022-11-25 | [facility] | 4.5 | (missing) | (missing) | | (unavailable | 09:30:07 | [facility] | [facility] | | | | + + + +-------+ + + + + | Result panel 235 | + + + + + +-------+ + + | | 2022-11-25 | [facility] | 104 | (missing) | (missing) | | (unavailable | 09:30:07 | [facility] | | | | + + + +-------+ + + + + | Result panel 236 | + + + + + +------+ + + | | 2022-11-25 | [facility] | 26 | (missing) | (missing) | | (unavailable | 09:30:07 | [facility] | | | | + + + +------+ + + + + | Result panel 237 | + + + + + +--------+ + + | | 2022-11-25 | [facility] | 13.5 | (missing) | (missing) | | (unavailable | 09:30:07 | [facility] | | | | + + + +--------+ + + + + | Result panel 238 | + + + + + +-------+---------+ + | | 2022-11-25 | [facility] | 9.3 | mg/dL | (missing) | | (unavailable | 09:30:07 | [facility] | | | | + + + +-------+---------+ + + + | Result panel 239 | + + + + + +-------+ + + | | 2022-11-25 | [facility] | 7.5 | (missing) | (missing) | | (unavailable | 09:30:07 | [facility] | | | | + + + +-------+ + + + + | Result panel 240 | + + + + + +-------+ + + | | 2022-11-25 | [facility] | 2.5 | (missing) | (missing) | | (unavailable | 09:30:07 | [facility] | | | | + + + +-------+ + + + + | Result panel 241 | + + + + + +-------+ + + | | 2022-11-25 | [facility] | 5.0 | (missing) | (missing) | | (unavailable | 09:30:07 | [facility] | | | | + + + +-------+ + + + + | Result panel 242 | + + + + + +--------+ + + | | 2022-11-25 | [facility] | 0.50 | (missing) | (missing) | | (unavailable | 09:30:07 | [facility] | | | | + + + +--------+ + + + + | Result panel 243 | + + + + + +-------+ + + | | 2022-11-25 | [facility] | 0.2 | (missing) | (missing) | | (unavailable | 09:30:07 | [facility] | | | | + + + +-------+ + + + + | Result panel 244 | + + + + + +------+ + + | | 2022-11-25 | [facility] | 16 | (missing) | (missing) | | (unavailable | 09:30:07 | [facility] | | | | + + + +------+ + + + + | Result panel 245 | + + + + + +------+ + + | | 2022-11-25 | [facility] | 18 | (missing) | (missing) | | (unavailable | 09:30:07 | [facility] | | | | + + + +------+ + + + + | Result panel 246 | + + + + + +------+ + + | | 2022-11-25 | [facility] | 83 | (missing) | (missing) | | (unavailable | 09:30:07 | [facility] | | | | + + + +------+ + + + + | Result panel 247 | + + + + + +-----+ + + | | 2022-11-25 | [facility] | B | (missing) | (missing) | | (unavailable | 09:30:07 | [facility] | | | | + + + +-----+ + + + + | Result panel 248 | + + + + + + + + + | | 2022-11-25 | [facility] | POSITIVE | (missing) | (missing) | | (unavailable | 09:30:07 | [facility] | | | | + + + + + + + + + | Result panel 249 | + + + + + + + + + | | 2022-11-25 | [facility] | NEGATIVE | (missing) | (missing) | | (unavailable | 09:30:07 | [facility] | | | | + + + + + + + + + | Result panel 250 | + + + + + + + + + | | 2022-11-25 | [facility] | BLOOD IN | (missing) | (missing) | | (unavailable | 09:30:07 | [facility] | | [facility] | | | | + + + + + + + + + | Result panel 251 | + + + + + +------+ + + | | 2022-11-25 | [facility] | 18 | (missing) | (missing) | | (unavailable | 09:30:08 | [facility] | | | | + + + +------+ + + + + | Result panel 252 | + + + + + +------+ + + | | 2022-11-25 | [facility] | 83 | (missing) | (missing) | | (unavailable | 09:30:08 | [facility] | | | | + + + +------+ + + + + | Result panel 253 | + + + + + +-----+ + + | | 2022-11-25 | [facility] | B | (missing) | (missing) | | (unavailable | 09:30:08 | [facility] | | | | + + + +-----+ + + + + | Result panel 254 | + + + + + + + + + | | 2022-11-25 | [facility] | POSITIVE | (missing) | (missing) | | (unavailable | 09:30:08 | [facility] | | | | + + + + + + + + + | Result panel 255 | + + + + + + + + + | | 2022-11-25 | [facility] | NEGATIVE | (missing) | (missing) | | (unavailable | 09:30:08 | [facility] | | | | + + + + + + + + + | Result panel 256 | + + + + + + + + + | | 2022-11-25 | [facility] | BLOOD IN | (missing) | (missing) | | (unavailable | 09:30:08 | [facility] | | [facility] | | | | + + + + + + + + + | Result panel 257 | + + + + + +-------+---------+ + | | 2022-11-25 | [facility] | 117 | mg/dL | (missing) | | (unavailable | 09:30:08 | [facility] | | | | + + + +-------+---------+ + + + | Result panel 258 | + + + + + +------+---------+ + | | 2022-11-25 | [facility] | 13 | mg/dL | (missing) | | (unavailable | 09:30:08 | [facility] | | | | + + + +------+---------+ + + + | Result panel 259 | + + + + + +--------+---------+ + | | 2022-11-25 | [facility] | 0.98 | mg/dL | (missing) | | (unavailable | 09:30:08 | [facility] | | | | + + + +--------+---------+ + + + | Result panel 260 | + + + + + +------+ + + | | 2022-11-25 | [facility] | 76 | (missing) | (missing) | | (unavailable | 09:30:08 | [facility] | | | | + + + +------+ + + + + | Result panel 261 | + + + + + +---------+ + + | | 2022-11-25 | [facility] | 13.26 | (missing) | (missing) | | (unavailable | 09:30:08 | [facility] | | | | + + + +---------+ + + + + | Result panel 262 | + + + + + +-------+ + + | | 2022-11-25 | [facility] | 139 | (missing) | (missing) | | (unavailable | 09:30:08 | [facility] | | | | + + + +-------+ + + + + | Result panel 263 | + + + + + +-------+ + + | | 2022-11-25 | [facility] | 4.5 | (missing) | (missing) | | (unavailable | 09:30:08 | [facility] | | | | + + + +-------+ + + + + | Result panel 264 | + + + + + +-------+ + + | | 2022-11-25 | [facility] | 104 | (missing) | (missing) | | (unavailable | 09:30:08 | [facility] | | | | + + + +-------+ + + + + | Result panel 265 | + + + + + +------+ + + | | 2022-11-25 | [facility] | 26 | (missing) | (missing) | | (unavailable | 09:30:08 | [facility] | | | | + + + +------+ + + + + | Result panel 266 | + + + + + +--------+ + + | | 2022-11-25 | [facility] | 13.5 | (missing) | (missing) | | (unavailable | 09:30:08 | [facility] | | | | + + + +--------+ + + + + | Result panel 267 | + + + + + +-------+---------+ + | | 2022-11-25 | [facility] | 9.3 | mg/dL | (missing) | | (unavailable | 09:30:08 | [facility] | | | | + + + +-------+---------+ + + + | Result panel 268 | + + + + + +-------+ + + | | 2022-11-25 | [facility] | 7.5 | (missing) | (missing) | | (unavailable | 09:30:08 | [facility] | | | | + + + +-------+ + + + + | Result panel 269 | + + + + + +-------+ + + | | 2022-11-25 | [facility] | 2.5 | (missing) | (missing) | | (unavailable | 09:30:08 | [facility] | | | | + + + +-------+ + + + + | Result panel 270 | + + + + + +-------+ + + | | 2022-11-25 | [facility] | 5.0 | (missing) | (missing) | | (unavailable | 09:30:08 | [facility] | | | | + + + +-------+ + + + + | Result panel 271 | + + + + + +--------+ + + | | 2022-11-25 | [facility] | 0.50 | (missing) | (missing) | | (unavailable | 09:30:08 | [facility] | | | | + + + +--------+ + + + + | Result panel 272 | + + + + + +-------+ + + | | 2022-11-25 | [facility] | 0.2 | (missing) | (missing) | | (unavailable | 09:30:08 | [facility] | | | | + + + +-------+ + + + + | Result panel 273 | + + + + + +------+ + + | | 2022-11-25 | [facility] | 16 | (missing) | (missing) | | (unavailable | 09:30:08 | [facility] | | | | + + + +------+ + + + + | Result panel 274 | + + + + + +--------+ + + | Automated | 2022-11-25 | [facility] | 73.0 | (missing) | (missing) | | blood | 20:19 | [facility] | | | | | neutrophil | | Hospital | | | | | count as | | | | | | | percentage | | | | | | | of total | | | | | | | leukocytes | | | | | | + + + +--------+ + + + + | Result panel 275 | + + + + + +--------+ + + | Automated | 2022-11-25 | [facility] | 16.9 | (missing) | (missing) | | blood | 20:19 | [facility] | | | | | lymphocyte | | Hospital | | | | | count as | | | | | | | percentage | | | | | | | ot total | | | | | | | leukocytes | | | | | | + + + +--------+ + + + + | Result panel 276 | + + + + + +-------+ + + | Automated | 2022-11-25 | [facility] | 6.4 | (missing) | (missing) | | blood | 20:19 | [facility] | | | | | monocyte | | Hospital | | | | | count as | | | | | | | percentage | | | | | | | of total | | | | | | | leukocytes | | | | | | + + + +-------+ + + + + | Result panel 277 | + + + + + +-------+ + + | Automated | 2022-11-25 | [facility] | 2.5 | (missing) | (missing) | | blood | 20:19 | [facility] | | | | | eosinophil | | Hospital | | | | | count as | | | | | | | percentage | | | | | | | of total | | | | | | | leukocytes | | | | | | + + + +-------+ + + + + | Result panel 278 | + + + + + +-------+ + + | Automated | 2022-11-25 | [facility] | 1.2 | (missing) | (missing) | | blood | 20:19 | [facility] | | | | | basophil | | Hospital | | | | | count as | | | | | | | percentage | | | | | | | of total | | | | | | | leukocytes | | | | | | + + + +-------+ + + + + | Result panel 279 | + + + + + +--------+ + + | | 2022-11-25 | [facility] | 73.0 | (missing) | (missing) | | (unavailable | 20:19:07 | [facility] | [facility] | | | | + + + +--------+ + + + + | Result panel 280 | + + + + + +--------+ + + | | 2022-11-25 | [facility] | 16.9 | (missing) | (missing) | | (unavailable | 20:19:07 | [facility] | [facility] | | | | + + + +--------+ + + + + | Result panel 281 | + + + + + +-------+ + + | | 2022-11-25 | [facility] | 6.4 | (missing) | (missing) | | (unavailable | 20:19:07 | [facility] | | | | + + + +-------+ + + + + | Result panel 282 | + + + + + +-------+ + + | | 2022-11-25 | [facility] | 2.5 | (missing) | (missing) | | (unavailable | 20:19:07 | [facility] | [facility] | | | | + + + +-------+ + + + + | Result panel 283 | + + + + + +-------+ + + | | 2022-11-25 | [facility] | 1.2 | (missing) | (missing) | | (unavailable | 20:19:07 | [facility] | | | | + + + +-------+ + + + + | Result panel 284 | + + + + + +--------+ + + | | 2022-11-25 | [facility] | 73.0 | (missing) | (missing) | | (unavailable | 20:19:08 | [facility] | | | | + + + +--------+ + + + + | Result panel 285 | + + + + + +--------+ + + | | 2022-11-25 | [facility] | 16.9 | (missing) | (missing) | | (unavailable | 20:19:08 | [facility] | | | | + + + +--------+ + + + + | Result panel 286 | + + + + + +-------+ + + | | 2022-11-25 | [facility] | 6.4 | (missing) | (missing) | | (unavailable | 20:19:08 | [facility] | | | | + + + +-------+ + + + + | Result panel 287 | + + + + + +-------+ + + | | 2022-11-25 | [facility] | 2.5 | (missing) | (missing) | | (unavailable | 20:19:08 | [facility] | | | | + + + +-------+ + + + + | Result panel 288 | + + + + + +-------+ + + | | 2022-11-25 | [facility] | 1.2 | (missing) | (missing) | | (unavailable | 20:19:08 | [facility] | | | | + + + +-------+ + + + + | Result panel 289 | + + + + + +-------+ + + | | 2022-11-26 | [facility] | 8.7 | (missing) | (missing) | | (unavailable | ::07 | [facility] | | | | + + + +-------+ + + + + | Result panel 290 | + + + + + +--------+ + + | | 2022-11-26 | [facility] | 3.20 | (missing) | (missing) | | (unavailable | :24:07 | [facility] | | | | + + + +--------+ + + + + | Result panel 291 | + + + + + +-------+ + + | | 2022-11-26 | [facility] | 8.5 | (missing) | (missing) | | (unavailable | 06:24:07 | [facility] | | | | + + + +-------+ + + + + | Result panel 292 | + + + + + +--------+ + + | | 2022-11-26 | [facility] | 25.8 | (missing) | (missing) | | (unavailable | 06:24:07 | [facility] | | | | + + + +--------+ + + + + | Result panel 293 | + + + + + +--------+ + + | | 2022-11-26 | [facility] | 80.8 | (missing) | (missing) | | (unavailable | 06:24:07 | [facility] | | | | + + + +--------+ + + + + | Result panel 294 | + + + + + +--------+ + + | | 2022-11-26 | [facility] | 26.6 | (missing) | (missing) | | (unavailable | 06:24:07 | [facility] | | | | + + + +--------+ + + + + | Result panel 295 | + + + + + +--------+ + + | | 2022-11-26 | [facility] | 32.9 | (missing) | (missing) | | (unavailable | 06:24:07 | [facility] | | | | + + + +--------+ + + + + | Result panel 296 | + + + + + +--------+ + + | | 2022-11-26 | [facility] | 17.7 | (missing) | (missing) | | (unavailable | ::07 | [facility] | | | | + + + +--------+ + + + + | Result panel 297 | + + + + + +-------+ + + | | 2022-11-26 | [facility] | 595 | (missing) | (missing) | | (unavailable | 06:24:07 | [facility] | | | | + + + +-------+ + + + + | Result panel 298 | + + + + + +------+ + + | | 2022-11-26 | [facility] | 78 | (missing) | (missing) | | (unavailable | 06:24:07 | [facility] | | | | + + + +------+ + + + + | Result panel 299 | + + + + + +------+ + + | | 2022-11-26 | [facility] | 19 | (missing) | (missing) | | (unavailable | 06:24:07 | [facility] | | | | + + + +------+ + + + + | Result panel 300 | + + + + + +-----+ + + | | 2022-11-26 | [facility] | 1 | (missing) | (missing) | | (unavailable | 06:24:07 | [facility] | | | | + + + +-----+ + + + + | Result panel 301 | + + + + + +-----+ + + | | 2022-11-26 | [facility] | 1 | (missing) | (missing) | | (unavailable | 06:24:07 | [facility] | | | | + + + +-----+ + + + + | Result panel 302 | + + + + + +-----+ + + | | 2022-11-26 | [facility] | 1 | (missing) | (missing) | | (unavailable | 06:24:07 | [facility] | | | | + + + +-----+ + + + + | Result panel 303 | + + + + + + + + + | | 2022-11-26 | [facility] | PRESENT | (missing) | (missing) | | (unavailable | 06:24:07 | [facility] | | | | + + + + + + + + + | Result panel 304 | + + + + + +-------+ + + | | 2022-11-26 | [facility] | 8.7 | (missing) | (missing) | | (unavailable | 06:24:08 | [facility] | | | | + + + +-------+ + + + + | Result panel 305 | + + + + + +--------+ + + | | 2022-11-26 | [facility] | 3.20 | (missing) | (missing) | | (unavailable | :24:08 | [facility] | | | | + + + +--------+ + + + + | Result panel 306 | + + + + + +-------+ + + | | 2022-11-26 | [facility] | 8.5 | (missing) | (missing) | | (unavailable | 06:24:08 | [facility] | | | | + + + +-------+ + + + + | Result panel 307 | + + + + + +--------+ + + | | 2022-11-26 | [facility] | 25.8 | (missing) | (missing) | | (unavailable | :24:08 | [facility] | | | | + + + +--------+ + + + + | Result panel 308 | + + + + + +--------+ + + | | 2022-11-26 | [facility] | 80.8 | (missing) | (missing) | | (unavailable | :24:08 | [facility] | | | | + + + +--------+ + + + + | Result panel 309 | + + + + + +--------+ + + | | 2022-11-26 | [facility] | 26.6 | (missing) | (missing) | | (unavailable | 06:24:08 | [facility] | | | | + + + +--------+ + + + + | Result panel 310 | + + + + + +--------+ + + | | 2022-11-26 | [facility] | 32.9 | (missing) | (missing) | | (unavailable | 06:24:08 | [facility] | | | | + + + +--------+ + + + + | Result panel 311 | + + + + + +--------+ + + | | 2022-11-26 | [facility] | 17.7 | (missing) | (missing) | | (unavailable | 06:24:08 | [facility] | | | | + + + +--------+ + + + + | Result panel 312 | + + + + + +-------+ + + | | 2022-11-26 | [facility] | 595 | (missing) | (missing) | | (unavailable | 06:24:08 | [facility] | | | | + + + +-------+ + + + + | Result panel 313 | + + + + + +------+ + + | | 2022-11-26 | [facility] | 78 | (missing) | (missing) | | (unavailable | :24:08 | [facility] | | | | + + + +------+ + + + + | Result panel 314 | + + + + + +------+ + + | | 2022-11-26 | [facility] | 19 | (missing) | (missing) | | (unavailable | 06:24:08 | [facility] | | | | + + + +------+ + + + + | Result panel 315 | + + + + + +-----+ + + | | 2022-11-26 | [facility] | 1 | (missing) | (missing) | | (unavailable | :24:08 | [facility] | | | | + + + +-----+ + + + + | Result panel 316 | + + + + + +-----+ + + | | 2022-11-26 | [facility] | 1 | (missing) | (missing) | | (unavailable | :24:08 | [facility] | | | | + + + +-----+ + + + + | Result panel 317 | + + + + + +-----+ + + | | 2022-11-26 | [facility] | 1 | (missing) | (missing) | | (unavailable | :24:08 | [facility] | | | | + + + +-----+ + + + + | Result panel 318 | + + + + + + + + + | | 2022-11-26 | [facility] | PRESENT | (missing) | (missing) | | (unavailable | :24:08 | [facility] | | | | + + + + + + + + + | Result panel 319 | + + + + + + + + + | | 2022-12-01 | [facility] | YELLOW | (missing) | (missing) | | (unavailable | 06:05:07 | [facility] | | | | + + + + + + + + + | Result panel 320 | + + + + + + + + + | | 2022-12-01 | [facility] | SL CLOUDY | (missing) | (missing) | | (unavailable | 06:05:07 | [facility] | | | | + + + + + + + + + | Result panel 321 | + + + + + + + + + | | 2022-12-01 | [facility] | NEGATIVE | (missing) | (missing) | | (unavailable | 06:05:07 | [facility] | | | | + + + + + + + + + | Result panel 322 | + + + + + + + + + | | 2022-12-01 | [facility] | NEGATIVE | (missing) | (missing) | | (unavailable | 06:05:07 | [facility] | | | | + + + + + + + + + | Result panel 323 | + + + + + + + + + | | 2022-12-01 | [facility] | NEGATIVE | (missing) | (missing) | | (unavailable | 06:05:07 | [facility] | | | | + + + + + + + + + | Result panel 324 | + + + + + +---------+ + + | | 2022-12-01 | [facility] | 1.020 | (missing) | (missing) | | (unavailable | 06:05:07 | [facility] | | | | + + + +---------+ + + + + | Result panel 325 | + + + + + + + + + | | 2022-12-01 | [facility] | NEGATIVE | (missing) | (missing) | | (unavailable | 06:05:07 | [facility] | | | | + + + + + + + + + | Result panel 326 | + + + + + +-------+ + + | | 2022-12-01 | [facility] | 6.5 | (missing) | (missing) | | (unavailable | 06:05:07 | [facility] | | | | + + + +-------+ + + + + | Result panel 327 | + + + + + + + + + | | 2022-12-01 | [facility] | NEGATIVE | (missing) | (missing) | | (unavailable | 06:05:07 | [facility] | | | | + + + + + + + + + | Result panel 328 | + + + + + + + + + | | 2022-12-01 | [facility] | NORMAL | (missing) | (missing) | | (unavailable | 06:05:07 | [facility] | | | | + + + + + + + + + | Result panel 329 | + + + + + + + + + | | 2022-12-01 | [facility] | NEGATIVE | (missing) | (missing) | | (unavailable | 06:05:07 | [facility] | | | | + + + + + + + + + | Result panel 330 | + + + + + + + + + | | 2022-12-01 | [facility] | NEGATIVE | (missing) | (missing) | | (unavailable | 06:05:07 | [facility] | | | | + + + + + + + + + | Automated erythrocyte distribution width | + + + + + +--------+ + + | Automated | 2022-11-08 | [facility] | 16.4 | (missing) | (missing) | | erythrocyte | 05:21 | [facility] | | | | | distribution | | [facility] | | | | | width | | | | | | + + + +--------+ + + | Automated | 2022-11-26 | [facility] | 17.7 | (missing) | (missing) | | erythrocyte | 06:24 | [facility] | | | | | distribution | | [facility] | | | | | width | | | | | | + + + +--------+ + + + + | Automated blood monocyte count as percentage of total leukocytes | + + + + + +-------+ + + | Automated | 2022-11-08 | [facility] | 5.1 | (missing) | (missing) | | blood | 05:21 | [facility] | | | | | monocyte | | Hospital | | | | | count as | | | | | | | percentage | | | | | | | of total | | | | | | | leukocytes | | | | | | + + + +-------+ + + + + | Aerobic bacterial culture | + + + + + +--------+ + + | Blood | 2022-11-26 | [facility] | 3.20 | (missing) | (missing) | | erythrocytes | 06:24 | [facility] | | | | | automated | | [facility] | | | | | count | | | | | | | (number/volu | | | | | | | me) | | | | | | + + + +--------+ + + + + | Bacterial anaerobic culture | + + + + + +-------+ + + | Blood | 2022-11-26 | [facility] | 8.5 | (missing) | (missing) | | hemoglobin | 06:24 | [facility] | | | | | measurement | | [facility] | | | | | (mass/volume | | | | | | | ) | | | | | | + + + +-------+ + + + + | Gram stain microscopy | + + + + + +-------+ + + | Blood | 2022-11-26 | [facility] | 8.7 | (missing) | (missing) | | leukocytes | 06:24 | [facility] | | | | | automated | | [facility] | | | | | count | | | | | | | (number/volu | | | | | | | me) | | | | | | + + + +-------+ + + + + | Blood leukocytes automated count (number/volume) | + + + + + +--------+ + + | Blood | 2022-11-08 | [facility] | 12.9 | (missing) | (missing) | | leukocytes | 05:21 | [facility] | | | | | automated | | [facility] | | | | | count | | | | | | | (number/volu | | | | | | | me) | | | | | | + + + +--------+ + + + + | Blood anisocytosis detection by light microscopy | + + + + + + + + + | Blood | 2022-11-26 | [facility] | PRESENT | (missing) | (missing) | | anisocytosis | 06:24 | [facility] | | | | | detection | | [facility] | | | | | by light | | | | | | | microscopy | | | | | | + + + + + + + + + | Automated blood basophil count as percentage of total leukocytes | + + + + + +-------+ + + | Automated | 2022-11-08 | [facility] | 0.9 | (missing) | (missing) | | blood | 05:21 | [facility] | | | | | basophil | | Hospital | | | | | count as | | | | | | | percentage | | | | | | | of total | | | | | | | leukocytes | | | | | | + + + +-------+ + + + + | Manual blood basophils/100 leukocytes | + + + + + +-----+ + + | Manual | 2022-11-26 | [facility] | 1 | (missing) | (missing) | | blood | 06:24 | [facility] | | | | | basophils/10 | | [facility] | | | | | 0 leukocytes | | | | | | | | | | | | | + + + +-----+ + + + + | Automated blood eosinophil count as percentage of total leukocytes | + + + + + +-------+ + + | Automated | 2022-11-08 | [facility] | 6.1 | (missing) | (missing) | | blood | 05:21 | [facility] | | | | | eosinophil | | Hospital | | | | | count as | | | | | | | percentage | | | | | | | of total | | | | | | | leukocytes | | | | | | + + + +-------+ + + + + | Manual blood eosinophils/100 leukocytes | + + + + + +-----+ + + | Manual | 2022-11-26 | [facility] | 1 | (missing) | (missing) | | blood | 06:24 | [facility] | | | | | eosinophils/ | | [facility] | | | | | 100 | | | | | | | leukocytes | | | | | | + + + +-----+ + + + + | Blood hemoglobin measurement (mass/volume) | + + + + + +-------+ + + | Blood | 2022-11-08 | [facility] | 9.3 | (missing) | (missing) | | hemoglobin | 05:21 | [facility] | | | | | measurement | | [facility] | | | | | (mass/volume | | | | | | | ) | | | | | | + + + +-------+ + + + + | Automated blood hematocrit | + + + + + +--------+ + + | Automated | 2022-11-08 | [facility] | 28.2 | (missing) | (missing) | | blood | 05:21 | [facility] | | | | | hematocrit | | [facility] | | | | + + + +--------+ + + | Automated | 2022-11-26 | [facility] | 25.8 | (missing) | (missing) | | blood | 06:24 | [facility] | | | | | hematocrit | | [facility] | | | | + + + +--------+ + + + + | Automated blood lymphocyte count as percentage ot total leukocytes | + + + + + +--------+ + + | Automated | 2022-11-08 | [facility] | 13.1 | (missing) | (missing) | | blood | 05:21 | [facility] | | | | | lymphocyte | | Hospital | | | | | count as | | | | | | | percentage | | | | | | | ot total | | | | | | | leukocytes | | | | | | + + + +--------+ + + + + | Manual blood lymphocytes/100 leukocytes | + + + + + +------+ + + | Manual | 2022-11-26 | [facility] | 19 | (missing) | (missing) | | blood | 06:24 | [facility] | | | | | lymphocytes/ | | [facility] | | | | | 100 | | | | | | | leukocytes | | | | | | + + + +------+ + + + + | Manual blood monocytes/100 leukocytes | + + + + + +-----+ + + | Manual | 2022-11-26 | [facility] | 1 | (missing) | (missing) | | blood | 06:24 | [facility] | | | | | monocytes/10 | | Hospital | | | | | 0 leukocytes | | | | | | | | | | | | | + + + +-----+ + + + + | Manual blood segmented neutrophils/100 leukocytes | + + + + + +------+ + + | Manual | 2022-11-26 | [facility] | 78 | (missing) | (missing) | | blood | 06:24 | [facility] | | | | | segmented | | Hospital | | | | | neutrophils/ | | | | | | | 100 | | | | | | | leukocytes | | | | | | + + + +------+ + + + + | Automated blood neutrophil count as percentage of total leukocytes | + + + + + +--------+ + + | Automated | 2022-11-08 | [facility] | 74.8 | (missing) | (missing) | | blood | 05:21 | [facility] | | | | | neutrophil | | Hospital | | | | | count as | | | | | | | percentage | | | | | | | of total | | | | | | | leukocytes | | | | | | + + + +--------+ + + + + | Automated blood platelet count (count/volume) | + + + + + +-------+ + + | Automated | 2022-11-08 | [facility] | 301 | (missing) | (missing) | | blood | 05:21 | [facility] | | | | | platelet | | [facility] | | | | | count | | | | | | | (count/volum | | | | | | | e) | | | | | | + + + +-------+ + + | Automated | 2022-11-26 | [facility] | 595 | (missing) | (missing) | | blood | 06:24 | [facility] | | | | | platelet | | Hospital | | | | | count | | | | | | | (count/volum | | | | | | | e) | | | | | | + + + +-------+ + + + + | Automated erythrocyte mean corpuscular hemoglobin (mass per erythrocyte) | + + + + + +--------+ + + | Automated | 2022-11-08 | [facility] | 27.7 | (missing) | (missing) | | erythrocyte | 05:21 | [facility] | | | | | mean | | Hospital | | | | | corpuscular | | | | | | | hemoglobin | | | | | | | (mass per | | | | | | | erythrocyte) | | | | | | | | | | | | | + + + +--------+ + + | Automated | 2022-11-26 | [facility] | 26.6 | (missing) | (missing) | | erythrocyte | 06:24 | [facility] | | | | | mean | | Hospital | | | | | corpuscular | | | | | | | hemoglobin | | | | | | | (mass per | | | | | | | erythrocyte) | | | | | | | | | | | | | + + + +--------+ + + + + | Automated erythrocyte mean corpuscular hemoglobin concentration measurement | | (mass/volume) | + + + + + +--------+ + + | Automated | 2022-11-08 | [facility] | 33.0 | (missing) | (missing) | | erythrocyte | 05:21 | [facility] | | | | | mean | | Hospital | | | | | corpuscular | | | | | | | hemoglobin | | | | | | | concentratio | | | | | | | n | | | | | | | measurement | | | | | | | (mass/volume | | | | | | | ) | | | | | | + + + +--------+ + + | Automated | 2022-11-26 | [facility] | 32.9 | (missing) | (missing) | | erythrocyte | 06:24 | [facility] | | | | | mean | | Hospital | | | | | corpuscular | | | | | | | hemoglobin | | | | | | | concentratio | | | | | | | n | | | | | | | measurement | | | | | | | (mass/volume | | | | | | | ) | | | | | | + + + +--------+ + + + + | Automated erythrocyte mean corpuscular volume | + + + + + +--------+ + + | Automated | 2022-11-08 | [facility] | 83.8 | (missing) | (missing) | | erythrocyte | 05:21 | [facility] | | | | | mean | | Hospital | | | | | corpuscular | | | | | | | volume | | | | | | + + + +--------+ + + | Automated | 2022-11-26 | [facility] | 80.8 | (missing) | (missing) | | erythrocyte | 06:24 | [facility] | | | | | mean | | Hospital | | | | | corpuscular | | | | | | | volume | | | | | | + + + +--------+ + + + + | Blood erythrocytes automated count (number/volume) | + + + + + +--------+ + + | Blood | 2022-11-08 | [facility] | 3.36 | (missing) | (missing) | | erythrocytes | 05:21 | [facility] | | | | | automated | | [facility] | | | | | count | | | | | | | (number/volu | | | | | | | me) | | | | | | + + + +--------+ + + Social History + + + + | date | description | facility | + + + + | 2022-11-08 00:00 | Current every day smoker | [facility] | + + + + | 2022-11-26 00:00 | Current every day smoker | [facility] | + + + + Vital Signs + + + +---------+ | date | measurement | value | units | + + + +---------+ | 2022-07-03 00:00 | BMI | 48.7 | kg/m2 | + + + +---------+ | 2022-07-03 00:00 | height_metric | 167.64 | cm | + + + +---------+ | 2022-07-03 00:00 | height_standard | 66 | in | + + + +---------+ | 2022-07-03 00:00 | weight_metric | 136.8 | kg | + + + +---------+ | 2022-07-03 00:00 | weight_standard | 301.59 | lb | + + + +---------+ | 2022-07-04 00:00 | BP_diastolic | 80 | mmHg | + + + +---------+ | 2022-07-04 00:00 | BP_systolic | 136 | mmHg | + + + +---------+ | 2022-07-04 00:00 | heart_rate | 79 | /min | + + + +---------+ | 2022-07-04 00:00 | o2_saturation | 98 | % | + + + +---------+ | 2022-07-04 00:00 | respiration_rate | 16 | /min | + + + +---------+ | 2022-07-04 00:00 | temperature_metric | 36.72 | C | | | | | | + + + +---------+ | 2022-07-04 00:00 | | 98.1 | F | | | temperature_standar | | | | | d | | | + + + +---------+ | 2022-10-28 00:00 | BMI | 49.3 | kg/m2 | + + + +---------+ | 2022-10-28 00:00 | height_metric | 167.64 | cm | + + + +---------+ | 2022-10-28 00:00 | height_standard | 66 | in | + + + +---------+ | 2022-10-28 00:00 | weight_metric | 138.63 | kg | + + + +---------+ | 2022-10-28 00:00 | weight_standard | 305.63 | lb | + + + +---------+ | 2022-11-08 00:00 | BP_diastolic | 86 | mmHg | + + + +---------+ | 2022-11-08 00:00 | BP_systolic | 154 | mmHg | + + + +---------+ | 2022-11-08 00:00 | heart_rate | 95 | /min | + + + +---------+ | 2022-11-08 00:00 | o2_saturation | 98 | % | + + + +---------+ | 2022-11-08 00:00 | respiration_rate | 18 | /min | + + + +---------+ | 2022-11-08 00:00 | temperature_metric | 36.67 | C | | | | | | + + + +---------+ | 2022-11-08 00:00 | | 98 | F | | | temperature_standar | | | | | d | | | + + + +---------+ | 2022-11-25 00:00 | BMI | 47.3 | kg/m2 | + + + +---------+ | 2022-11-25 00:00 | height_metric | 167.64 | cm | + + + +---------+ | 2022-11-25 00:00 | height_standard | 66 | in | + + + +---------+ | 2022-11-25 00:00 | weight_metric | 133 | kg | + + + +---------+ | 2022-11-25 00:00 | weight_standard | 293.21 | lb | + + + +---------+ | 2022-11-26 00:00 | BP_diastolic | 91 | mmHg | + + + +---------+ | 2022-11-26 00:00 | BP_systolic | 146 | mmHg | + + + +---------+ | 2022-11-26 00:00 | heart_rate | 92 | /min | + + + +---------+ | 2022-11-26 00:00 | o2_saturation | 100 | % | + + + +---------+ | 2022-11-26 00:00 | respiration_rate | 16 | /min | + + + +---------+ | 2022-11-26 00:00 | temperature_metric | 36.94 | C | | | | | | + + + +---------+ | 2022-11-26 00:00 | | 98.5 | F | | | temperature_standar | | | | | d | | | + + + +---------+ | 2022-11-30 00:00 | BMI | 45.6 | kg/m2 | + + + +---------+ | 2022-11-30 00:00 | height_metric | 167.64 | cm | + + + +---------+ | 2022-11-30 00:00 | height_standard | 66 | in | + + + +---------+ | 2022-11-30 00:00 | weight_metric | 128.18 | kg | + + + +---------+ | 2022-11-30 00:00 | weight_standard | 282.59 | lb | + + + +---------+ | 2022-12-01 00:00 | BP_diastolic | 80 | mmHg | + + + +---------+ | 2022-12-01 00:00 | BP_systolic | 136 | mmHg | + + + +---------+ | 2022-12-01 00:00 | heart_rate | 106 | /min | + + + +---------+ | 2022-12-01 00:00 | o2_saturation | 98 | % | + + + +---------+ | 2022-12-01 00:00 | respiration_rate | 16 | /min | + + + +---------+ | 2022-12-01 00:00 | temperature_metric | 37.72 | C | | | | | | + + + +---------+ | 2022-12-01 00:00 | | 99.9 | F | | | temperature_standar | | | | | d | | | + + + +---------+"
--- OUTSIDE RECORDS SUMMARY | ~2023-04-24 | XMS | Continuity of Care Document ---
Demographics + + + | Address | [address] | | | [place] [address] | + + + | Preferred Language | Unknown | + + + | Marital Status | Never | + + + | Yarsanism Affiliation | Unknown | + + + | Race | White | + + + | Ethnic Group | Not or | + + + Author + + + | Author | [facility] | + + + | Organization | [facility] | + + + | Address | [address] | | | [place] [address] | + + + | Phone | | + + + Care Team Providers + + + + | Care Video System Repairer Name | Role | Phone | + [...] 2022-07-04 00:00 | Influenza, Injectable, | [facility] | | | Quadrivalent | | + + + + | 2022-11-08 00:00 | Influenza, Injectable, | [facility] | | | Quadrivalent | | + + + + | 2022-11-26 00:00 | Influenza, Injectable, | [facility] | | | Quadrivalent | | + + + + | 2022-12-01 00:00 | Influenza, Injectable, | [facility] | | | Quadrivalent | | + + + + | 2022-11-08 00:00 | No vaccine administered | [facility] | + + + + | 2022-11-26 00:00 | No vaccine administered | [facility] | + + + + Medications + + + + | date | description | facility | + + + + | 2022-07-04 00:00 | ONDANSETRON HCL | [facility] | + + + + | 2022-11-08 00:00 | ONDANSETRON HCL | [facility] | + + + + | 2022-11-26 00:00 | ONDANSETRON HCL | [facility] | + + + + | 2022-12-01 00:00 | ONDANSETRON HCL | [facility] | + + + + | 2022-11-08 00:00 | ondansetron 4 MG Oral | [facility] | | | Tablet [Zofran] | | + + + + | 2022-11-26 00:00 | ondansetron 4 MG Oral | [facility] | | | Tablet [Zofran] | | + + + + | 2015-07-08 00:00 | OXYCODONE | [facility] | | | HCL/ACETAMINOPHEN | | + + + + | 2015-07-08 00:00 | OXYCODONE | [facility] | | | HCL/ACETAMINOPHEN | | + + + + | 2015-07-08 00:00 | acetaminophen 325 MG / | [facility] | | | oxycodone hydrochloride 5 | | | | MG Oral Tab | | + + + + | 2022-07-04 00:00 | OXYCODONE | [facility] | | | HCL/ACETAMINOPHEN | | + + + + | 2022-11-08 00:00 | OXYCODONE | [facility] | | | HCL/ACETAMINOPHEN | | + + + + | 2022-11-26 00:00 | OXYCODONE | [facility] | | | HCL/ACETAMINOPHEN | | + + + + | 2022-12-01 00:00 | OXYCODONE | [facility] | | | HCL/ACETAMINOPHEN | | + + + + | 2022-11-08 00:00 | acetaminophen 325 MG / | [facility] | | | oxycodone hydrochloride 5 | | | | MG Oral Tab | | + + + + | 2022-11-26 00:00 | acetaminophen 325 MG / | [facility] | | | oxycodone hydrochloride 5 | | | | MG Oral Tab | | + + + + | 2022-07-04 00:00 | OXYCODONE HCL | [facility] | + + + + | 2022-11-08 00:00 | OXYCODONE HCL | [facility] | + + + + | 2022-11-26 00:00 | OXYCODONE HCL | [facility] | + + + + | 2022-12-01 00:00 | OXYCODONE HCL | [facility] | + + + + | 2022-11-08 00:00 | oxycodone hydrochloride 10 | [facility] | | | MG Oral Tablet | | + + + + | 2022-11-26 00:00 | oxycodone hydrochloride 10 | [facility] | | | MG Oral Tablet | | + + + + | 2022-07-04 00:00 | DIVALPROEX SODIUM | [facility] | + + + + | 2022-11-08 00:00 | DIVALPROEX SODIUM | [facility] | + + + + | 2022-11-26 00:00 | DIVALPROEX SODIUM | [facility] | + + + + | 2022-12-01 00:00 | DIVALPROEX SODIUM | [facility] | + + + + | 2022-11-08 00:00 | divalproex sodium 250 MG | [facility] | | | Delayed Release Oral Tablet | | | | | | + + + + | 2022-11-26 00:00 | divalproex sodium 250 MG | [facility] | | | Delayed Release Oral Tablet | | | | | | + + + + | 2022-11-26 00:00 | LACTOBACILLUS ACIDOPHILUS | [facility] | + + + + | 2022-12-01 00:00 | LACTOBACILLUS ACIDOPHILUS | [facility] | + + + + | 2022-11-26 00:00 | Lactobacillus acidophilus | [facility] | | | [id number] UNT Oral | | | | Capsule | | + + + + | 2021-10-14 00:00 | IBUPROFEN | [facility] | + + + + | 2021-04-30 00:00 | NICOTINE | [facility] | + + + + | 2022-07-04 00:00 | OMEPRAZOLE | [facility] | + + + + | 2022-11-08 00:00 | OMEPRAZOLE | [facility] | + + + + | 2022-11-26 00:00 | OMEPRAZOLE | [facility] | + + + + | 2022-12-01 00:00 | OMEPRAZOLE | [facility] | + + + + | 2022-11-08 00:00 | omeprazole 20 MG Delayed | [facility] | | | Release Oral Capsule | | + + + + | 2022-11-26 00:00 | omeprazole 20 MG Delayed | [facility] | | | Release Oral Capsule | | + + + + | 2021-04-30 00:00 | ACETAMINOPHEN | [facility] | + + + + | 2021-04-30 00:00 | ACETAMINOPHEN | [facility] | + + + + | 2021-10-14 00:00 | ACETAMINOPHEN | [facility] | + + + + | 2022-07-04 00:00 | ACETAMINOPHEN | [facility] | + + + + | 2022-11-08 00:00 | ACETAMINOPHEN | [facility] | + + + + | 2022-11-08 00:00 | ACETAMINOPHEN | [facility] | + + + + | 2022-11-26 00:00 | ACETAMINOPHEN | [facility] | + + + + | 2022-12-01 00:00 | ACETAMINOPHEN | [facility] | + + + + | 2021-04-30 00:00 | acetaminophen 500 MG Oral | [facility] | | | Tablet | | + + + + | 2021-10-14 00:00 | acetaminophen 500 MG Oral | [facility] | | | Tablet | | + + + + | 2022-11-08 00:00 | acetaminophen 500 MG Oral | [facility] | | | Tablet | | + + + + | 2022-11-26 00:00 | acetaminophen 500 MG Oral | [facility] | | | Tablet | | + + + + | 2022-07-04 00:00 | OMEPRAZOLE | [facility] | + + + + | 2022-11-08 00:00 | OMEPRAZOLE | [facility] | + + + + | 2022-11-26 00:00 | OMEPRAZOLE | [facility] | + + + + | 2022-12-01 00:00 | OMEPRAZOLE | [facility] | + + + + | 2022-11-08 00:00 | omeprazole 40 MG Delayed | [facility] | | | Release Oral Capsule | | + + + + | 2022-11-26 00:00 | omeprazole 40 MG Delayed | [facility] | | | Release Oral Capsule | | + + + + | 2022-07-04 00:00 | CIPROFLOXACIN HCL | [facility] | + + + + | 2022-11-08 00:00 | CIPROFLOXACIN HCL | [facility] | + + + + | 2022-11-26 00:00 | CIPROFLOXACIN HCL | [facility] | + + + + | 2022-12-01 00:00 | CIPROFLOXACIN HCL | [facility] | + + + + | 2022-11-08 00:00 | ciprofloxacin 500 MG Oral | [facility] | | | Tablet [Cipro] | | + + + + | 2022-11-26 00:00 | ciprofloxacin 500 MG Oral | [facility] | | | Tablet [Cipro] | | + + + + | 2022-07-04 00:00 | FLUCONAZOLE | [facility] | + + + + | 2022-11-08 00:00 | FLUCONAZOLE | [facility] | + + + + | 2022-11-26 00:00 | FLUCONAZOLE | [facility] | + + + + | 2022-12-01 00:00 | FLUCONAZOLE | [facility] | + + + + | 2022-11-08 00:00 | fluconazole 200 MG Oral | [facility] | | | Tablet [Diflucan] | | + + + + | 2022-11-26 00:00 | fluconazole 200 MG Oral | [facility] | | | Tablet [Diflucan] | | + + + + | 2022-07-04 00:00 | SERTRALINE HCL | [facility] | + + + + | 2022-11-08 00:00 | SERTRALINE HCL | [facility] | + + + + | 2022-11-26 00:00 | SERTRALINE HCL | [facility] | + + + + | 2022-12-01 00:00 | SERTRALINE HCL | [facility] | + + + + | 2022-11-08 00:00 | sertraline 100 MG Oral | [facility] | | | Tablet [Zoloft] | | + + + + | 2022-11-26 00:00 | sertraline 100 MG Oral | [facility] | | | Tablet [Zoloft] | | + + + + | 2022-07-04 00:00 | CALCIUM CARBONATE | [facility] | + + + + | 2022-11-08 00:00 | CALCIUM CARBONATE | [facility] | + + + + | 2022-11-26 00:00 | CALCIUM CARBONATE | [facility] | + + + + | 2022-12-01 00:00 | CALCIUM CARBONATE | [facility] | + + + + | 2022-11-08 00:00 | calcium carbonate 500 MG | [facility] | | | Chewable Tablet [Tums] | | + + + + | 2022-11-26 00:00 | calcium carbonate 500 MG | [facility] | | | Chewable Tablet [Tums] | | + + + + | 2013-10-05 00:00 | CEPHALEXIN | [facility] | + + + + | 2013-10-05 00:00 | CEPHALEXIN | [facility] | + + + + | 2013-10-05 00:00 | cephalexin 500 MG Oral | [facility] | | | Capsule [Keflex] | | + + + + | 2022-07-04 00:00 | AMOXICILLIN | [facility] | + + + + | 2022-11-08 00:00 | AMOXICILLIN | [facility] | + + + + | 2022-11-26 00:00 | AMOXICILLIN | [facility] | + + + + | 2022-12-01 00:00 | AMOXICILLIN | [facility] | + + + + | 2022-11-08 00:00 | amoxicillin 500 MG Oral | [facility] | | | Capsule | | + + + + | 2022-11-26 00:00 | amoxicillin 500 MG Oral | [facility] | | | Capsule | | + + + + | 2022-07-04 00:00 | CIPROFLOXACIN HCL | [facility] | + + + + | 2022-11-08 00:00 | CIPROFLOXACIN HCL | [facility] | + + + + | 2022-11-26 00:00 | CIPROFLOXACIN HCL | [facility] | + + + + | 2022-12-01 00:00 | CIPROFLOXACIN HCL | [facility] | + + + + | 2022-11-08 00:00 | ciprofloxacin 500 MG Oral | [facility] | | | Tablet | | + + + + | 2022-11-26 00:00 | ciprofloxacin 500 MG Oral | [facility] | | | Tablet | | + + + + | 2022-07-04 00:00 | GABAPENTIN | [facility] | + + + + | 2022-11-08 00:00 | GABAPENTIN | [facility] | + + + + | 2022-11-26 00:00 | GABAPENTIN | [facility] | + + + + | 2022-12-01 00:00 | GABAPENTIN | [facility] | + + + + | 2022-11-08 00:00 | gabapentin 600 MG Oral | [facility] | | | Tablet | | + + + + | 2022-11-26 00:00 | gabapentin 600 MG Oral | [facility] | | | Tablet | | + + + + | 2022-07-04 00:00 | IBUPROFEN | [facility] | + + + + | 2022-11-08 00:00 | IBUPROFEN | [facility] | + + + + | 2022-11-26 00:00 | IBUPROFEN | [facility] | + + + + | 2022-12-01 00:00 | IBUPROFEN | [facility] | + + + + | 2022-11-08 00:00 | ibuprofen 200 MG Oral | [facility] | | | Capsule | | + + + + | 2022-11-26 00:00 | ibuprofen 200 MG Oral | [facility] | | | Capsule | | + + + + | 2022-07-04 00:00 | IBUPROFEN | [facility] | + + + + | 2022-11-08 00:00 | IBUPROFEN | [facility] | + + + + | 2022-11-26 00:00 | IBUPROFEN | [facility] | + + + + | 2022-12-01 00:00 | IBUPROFEN | [facility] | + + + + | 2022-11-08 00:00 | ibuprofen 200 MG Oral | [facility] | | | Tablet | | + + + + | 2022-11-26 00:00 | ibuprofen 200 MG Oral | [facility] | | | Tablet | | + + + + | 2022-07-04 00:00 | METRONIDAZOLE | [facility] | + + + + | 2022-11-08 00:00 | METRONIDAZOLE | [facility] | + + + + | 2022-11-26 00:00 | METRONIDAZOLE | [facility] | + + + + | 2022-12-01 00:00 | METRONIDAZOLE | [facility] | + + + + | 2022-11-08 00:00 | metronidazole 500 MG Oral | [facility] | | | Tablet | | + + + + | 2022-11-26 00:00 | metronidazole 500 MG Oral | [facility] | | | Tablet | | + + + + | 2022-07-03 00:00 | ONDANSETRON | [facility] | + + + + | 2022-07-04 00:00 | ONDANSETRON | [facility] | + + + + | 2022-07-04 00:00 | SENNOSIDES | [facility] | + + + + | 2022-11-08 00:00 | SENNOSIDES | [facility] | + + + + | 2022-11-26 00:00 | SENNOSIDES | [facility] | + + + + | 2022-12-01 00:00 | SENNOSIDES | [facility] | + + + + | 2022-11-08 00:00 | sennosides, SKILLED NURSING 8.6 MG | [facility] | | | Oral Tablet | | + + + + | 2022-11-26 00:00 | sennosides, SKILLED NURSING 8.6 MG | [facility] | | | Oral Tablet | | + + + + | 2022-07-04 00:00 | ACETAMINOPHEN | [facility] | + + + + | 2022-11-08 00:00 | ACETAMINOPHEN | [facility] | + + + + | 2022-11-26 00:00 | ACETAMINOPHEN | [facility] | + + + + | 2022-12-01 00:00 | ACETAMINOPHEN | [facility] | + + + + | 2022-11-08 00:00 | acetaminophen 325 MG Oral | [facility] | | | Tablet | | + + + + | 2022-11-26 00:00 | acetaminophen 325 MG Oral | [facility] | | | Tablet | | + + + + | 2022-11-26 00:00 | LISINOPRIL | [facility] | + + + + | 2022-12-01 00:00 | LISINOPRIL | [facility] | + + + + | 2022-11-26 00:00 | lisinopril 10 MG Oral | [facility] | | | Tablet | | + + + + | 2022-11-08 00:00 | METRONIDAZOLE | [facility] | + + + + | 2022-11-08 00:00 | metronidazole 250 MG Oral | [facility] | | | Tablet | | + + + + | 2022-11-08 00:00 | 24 HR nicotine 0.583 MG/HR | [facility] | | | Transdermal System | | | | [Juan C BoydQ] | | + + + + | 2022-11-26 00:00 | 24 HR nicotine 0.583 MG/HR | [facility] | | | Transdermal System | | | | [Juan C Fernandez] | | + + + + | 2022-07-04 00:00 | NICOTINE | [facility] | + + + + | 2022-11-08 00:00 | NICOTINE | [facility] | + + + + | 2022-11-26 00:00 | NICOTINE | [facility] | + + + + | 2022-12-01 00:00 | NICOTINE | [facility] | + + + + | 2022-07-04 00:00 | Scopolamine | [facility] | + + + + | 2022-07-04 00:00 | OMEPRAZOLE MAGNESIUM | [facility] | + + + + | 2022-11-08 00:00 | OMEPRAZOLE MAGNESIUM | [facility] | + + + + | 2022-11-26 00:00 | OMEPRAZOLE MAGNESIUM | [facility] | + + + + | 2022-12-01 00:00 | OMEPRAZOLE MAGNESIUM | [facility] | + + + + | 2022-11-08 00:00 | omeprazole 20 MG Delayed | [facility] | | | Release Oral Tablet | | + + + + | 2022-11-26 00:00 | omeprazole 20 MG Delayed | [facility] | | | Release Oral Tablet | | + + + + | 2022-07-04 00:00 | NITROFURANTOIN MONOHYD | [facility] | | | MACROCR | | + + + + | 2022-11-08 00:00 | NITROFURANTOIN MONOHYD | [facility] | | | MACROCR | | + + + + | 2022-11-26 00:00 | NITROFURANTOIN MONOHYD | [facility] | | | MACROCR | | + + + + | 2022-12-01 00:00 | NITROFURANTOIN MONOHYD | [facility] | | | MACROCR | | + + + + | 2022-11-08 00:00 | nitrofurantoin, | [facility] | | | macrocrystals 25 MG / | | | | nitrofurantoin, monohy | | + + + + | 2022-11-26 00:00 | nitrofurantoin, | [facility] | | | macrocrystals 25 MG / | | | | nitrofurantoin, monohy | | + + + + | 2022-11-08 00:00 | AMOXICILLIN/POTASSIUM CLAV | [facility] | | | | | + + + + | 2022-11-08 00:00 | amoxicillin 875 MG / | [facility] | | | clavulanate 125 MG Oral | | | | Tablet | | + + + + | 2022-11-08 00:00 | Varenicline Tartrate | [facility] | + + + + | 2022-11-26 00:00 | Varenicline Tartrate | [facility] | + + + + | 2022-12-01 00:00 | Varenicline Tartrate | [facility] | + + + + | 2022-11-08 00:00 | varenicline 1 MG Oral | [facility] | | | Tablet | | + + + + | 2022-11-26 00:00 | varenicline 1 MG Oral | [facility] | | | Tablet | | + + + + | 2022-07-04 00:00 | NORGESTIMATE-ETHINYL | [facility] | | | ESTRADIOL | | + + + + | 2022-11-08 00:00 | NORGESTIMATE-ETHINYL | [facility] | | | ESTRADIOL | | + + + + | 2022-11-26 00:00 | NORGESTIMATE-ETHINYL | [facility] | | | ESTRADIOL | | + + + + | 2022-12-01 00:00 | NORGESTIMATE-ETHINYL | [facility] | | | ESTRADIOL | | + + + + | 2022-11-08 00:00 | Ortho Tri-Cyclen 28 Day | [facility] | | | Pack | | + + + + | 2022-11-26 00:00 | Ortho Tri-Cyclen 28 Day | [facility] | | | Pack | | + + + + | 2022-07-04 00:00 | AMOXICILLIN/POTASSIUM CLAV | [facility] | | | | | + + + + | 2022-11-08 00:00 | AMOXICILLIN/POTASSIUM CLAV | [facility] | | | | | + + + + | 2022-11-26 00:00 | AMOXICILLIN/POTASSIUM CLAV | [facility] | | | | | + + + + | 2022-12-01 00:00 | AMOXICILLIN/POTASSIUM CLAV | [facility] | | | | | + + + + | 2022-11-08 00:00 | amoxicillin 875 MG / | [facility] | | | clavulanate 125 MG Oral | | | | Tablet [Augment | | + + + + | 2022-11-26 00:00 | amoxicillin 875 MG / | [facility] | | | clavulanate 125 MG Oral | | | | Tablet [Augment | | + + + + | 2017-08-13 00:00 | TRAMADOL HCL | [facility] | + + + + | 2017-08-13 00:00 | TRAMADOL HCL | [facility] | + + + + | 2017-08-13 00:00 | tramadol hydrochloride 50 | [facility] | | | MG Oral Tablet [Ultram] | | + + + + | 2022-07-04 00:00 | | [facility] | | | SULFAMETHOXAZOLE/TRIMETHOPR | | | | IM DS | | + + + + | 2022-11-08 00:00 | | [facility] | | | SULFAMETHOXAZOLE/TRIMETHOPR | | | | IM DS | | + + + + | 2022-11-26 00:00 | | [facility] | | | SULFAMETHOXAZOLE/TRIMETHOPR | | | | IM DS | | + + + + | 2022-12-01 00:00 | | [facility] | | | SULFAMETHOXAZOLE/TRIMETHOPR | | | | IM DS | | + + + + | 2022-11-08 00:00 | sulfamethoxazole 800 MG / | [facility] | | | trimethoprim 160 MG Oral | | | | Tablet [B | | + + + + | 2022-11-26 00:00 | sulfamethoxazole 800 MG / | [facility] | | | trimethoprim 160 MG Oral | | | | Tablet [B | | + + + + | 2022-07-04 00:00 | NAPROXEN SODIUM | [facility] | + + + + | 2022-11-08 00:00 | NAPROXEN SODIUM | [facility] | + + + + | 2022-11-26 00:00 | NAPROXEN SODIUM | [facility] | + + + + | 2022-12-01 00:00 | NAPROXEN SODIUM | [facility] | + + + + | 2022-11-08 00:00 | naproxen sodium 220 MG | [facility] | | | Oral Tablet [Aleve] | | + + + + | 2022-11-26 00:00 | naproxen sodium 220 MG | [facility] | | | Oral Tablet [Aleve] | | + + + + | 2022-07-04 00:00 | AMITRIPTYLINE HCL | [facility] | + + + + | 2022-11-08 00:00 | AMITRIPTYLINE HCL | [facility] | + + + + | 2022-11-26 00:00 | AMITRIPTYLINE HCL | [facility] | + + + + | 2022-12-01 00:00 | AMITRIPTYLINE HCL | [facility] | + + + + | 2022-11-08 00:00 | amitriptyline | [facility] | | | hydrochloride 10 MG Oral | | | | Tablet | | + + + + | 2022-11-26 00:00 | amitriptyline | [facility] | | | hydrochloride 10 MG Oral | | | | Tablet | | + + + + | 2022-07-04 00:00 | AMITRIPTYLINE HCL | [facility] | + + + + | 2022-11-08 00:00 | AMITRIPTYLINE HCL | [facility] | + + + + | 2022-11-26 00:00 | AMITRIPTYLINE HCL | [facility] | + + + + | 2022-12-01 00:00 | AMITRIPTYLINE HCL | [facility] | + + + + | 2022-11-08 00:00 | amitriptyline | [facility] | | | hydrochloride 25 MG Oral | | | | Tablet | | + + + + | 2022-11-26 00:00 | amitriptyline | [facility] | | | hydrochloride 25 MG Oral | | | | Tablet | | + + + + | 2022-07-03 00:00 | HYDROCODONE | [facility] | | | BIT/ACETAMINOPHEN | | + + + + | 2022-07-04 00:00 | HYDROCODONE | [facility] | | | BIT/ACETAMINOPHEN | | + + + + | 2022-11-08 00:00 | HYDROCODONE | [facility] | | | BIT/ACETAMINOPHEN | | + + + + | 2022-11-26 00:00 | HYDROCODONE | [facility] | | | BIT/ACETAMINOPHEN | | + + + + | 2022-12-01 00:00 | HYDROCODONE | [facility] | | | BIT/ACETAMINOPHEN | | + + + + | 2022-11-08 00:00 | acetaminophen 325 MG / | [facility] | | | hydrocodone bitartrate 5 MG | | | | Oral Tabl | | + + + + | 2022-11-26 00:00 | acetaminophen 325 MG / | [facility] | | | hydrocodone bitartrate 5 MG | | | | Oral Tabl | | + + + + | 2019-04-07 00:00 | HYDROCODONE | [facility] | | | BIT/ACETAMINOPHEN | | + + + + | 2019-04-07 00:00 | HYDROCODONE | [facility] | | | BIT/ACETAMINOPHEN | | + + + + | 2022-07-04 00:00 | HYDROCODONE | [facility] | | | BIT/ACETAMINOPHEN | | + + + + | 2022-11-08 00:00 | HYDROCODONE | [facility] | | | BIT/ACETAMINOPHEN | | + + + + | 2022-11-26 00:00 | HYDROCODONE | [facility] | | | BIT/ACETAMINOPHEN | | + + + + | 2022-12-01 00:00 | HYDROCODONE | [facility] | | | BIT/ACETAMINOPHEN | | + + + + | 2019-04-07 00:00 | acetaminophen 325 MG / | [facility] | | | hydrocodone bitartrate 5 MG | | | | Oral Tabl | | + + + + | 2022-11-08 00:00 | acetaminophen 325 MG / | [facility] | | | hydrocodone bitartrate 5 MG | | | | Oral Tabl | | + + + + | 2022-11-26 00:00 | acetaminophen 325 MG / | [facility] | | | hydrocodone bitartrate 5 MG | | | | Oral Tabl | | + + + + | 2022-07-04 00:00 | HYDRALAZINE HCL | [facility] [facility] | + + + + | 2022-11-08 00:00 | HYDRALAZINE HCL | [facility] | + + + + | 2022-11-26 00:00 | HYDRALAZINE HCL | [facility] | + + + + | 2022-12-01 00:00 | HYDRALAZINE HCL | [facility] | + + + + | 2022-11-08 00:00 | hydralazine hydrochloride | [facility] | | | 10 MG Oral Tablet | | + + + + | 2022-11-26 00:00 | hydralazine hydrochloride | [facility] | | | 10 MG Oral Tablet | | + + + + | 2022-07-04 00:00 | PROMETHAZINE HCL | [facility] | + + + + | 2022-11-08 00:00 | PROMETHAZINE HCL | [facility] | + + + + | 2022-11-26 00:00 | PROMETHAZINE HCL | [facility] | + + + + | 2022-12-01 00:00 | PROMETHAZINE HCL | [facility] | + + + + | 2022-11-08 00:00 | promethazine hydrochloride | [facility] | | | 25 MG Oral Tablet | | + + + + | 2022-11-26 00:00 | promethazine hydrochloride | [facility] | | | 25 MG Oral Tablet | | + + + + Problems + + + + | date | description | facility | + + + + | 2015-10-06 00:00 | S/P hysterectomy | [facility] | + + + + | 2015-10-06 00:00 | Post-operative | [facility] | | | complication | | + + + + | 2015-10-06 00:00 | Pelvic abscess in female | [facility] | + + + + | 2015-10-06 00:00 | Abscess of female pelvis | [facility] | + + + + | 2015-10-06 00:00 | Abscess of female pelvis | [facility] | + + + + | 2015-10-06 00:00 | Postoperative complication | [facility] | | | | | + + + + | 2015-10-06 00:00 | Postoperative complication | [facility] | | | | | + + + + | 2015-10-06 00:00 | Status post hysterectomy | [facility] | + + + + | 2015-10-06 00:00 | Status post hysterectomy | [facility] | + + + + | 2016-02-10 00:00 | Patient left without being | [facility] | | | seen | | + + + + | 2016-02-10 00:00 | Patient left without being | [facility] | | | seen | | + + + + | 2016-06-08 00:00 | Encounter for medical | [facility] | | | screening examination | | + + + + | 2016-06-08 00:00 | Encounter for medical | [facility] | | | screening examination | | + + + + | 2017-08-13 00:00 | Right ankle sprain | [facility] | + + + + | 2017-08-13 00:00 | Sprain of right ankle | [facility] | + + + + | 2017-08-13 00:00 | Sprain of right ankle | [facility] | + + + + | 2018-01-14 00:00 | Migraine headache | [facility] | + + + + | 2018-01-14 00:00 | Migraine headache | [facility] | + + + + | 2021-02-21 00:00 | Wound dehiscence | [facility] | + + + + | 2021-02-21 00:00 | Dehiscence of wound | [facility] | + + + + | 2021-02-21 00:00 | Dehiscence of wound | [facility] | + + + + | 2021-04-28 00:00 | Incarcerated ventral | 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 | | | anterior abdominal wall | | + + + + | 2022-07-03 00:00 | Ovarian cystic mass | [facility] | + + + + | 2022-07-03 00:00 | Cyst of ovary | [facility] | + + + + | 2022-07-03 00:00 | Cyst of ovary | [facility] | + + + + | 2022-11-25 00:00 | Rectus sheath hematoma | [facility] | + + + + | 2022-11-25 00:00 | Hydronephrosis due to | [facility] | | | obstruction of ureter | | + + + + | 2022-11-25 00:00 | Hydronephrosis due to | [facility] | | | obstruction of ureter | | + + + + | 2022-11-25 00:00 | Hematoma of rectus sheath | [facility] | + + + + | 2022-11-25 00:00 | Hematoma of rectus sheath | [facility] | + + + + Procedures + + + + | date | description | facility | + + + + | 2022-11-04 00:00 | RELEASE PERITONEUM, OPEN | [facility] | | | APPROACH | | + + + + | 2022-11-04 00:00 | RELEASE PERITONEUM, OPEN | [facility] | | | APPROACH | | + + + + | 2022-11-04 00:00 | RESECTION OF BILATERAL | [facility] | | | OVARIES, OPEN APPROACH | | + + + + | 2022-11-04 00:00 | RESECTION OF BILATERAL | [facility] | | | OVARIES, OPEN APPROACH | | + + + + | 2022-11-04 00:00 | RESECTION OF BILATERAL | [facility] | | | FALLOPIAN TUBES, OPEN | | | | APPROACH | | + + + + | 2022-11-04 00:00 | RESECTION OF BILATERAL | [facility] | | | FALLOPIAN TUBES, OPEN | | | | APPROACH | | + + + + | 2022-11-04 00:00 | REMOVAL OF SYNTHETIC | [facility] | | | SUBSTITUTE FROM ABD WALL, | | | | OPEN APPROACH | | + + + + | 2022-11-04 00:00 | REMOVAL OF SYNTHETIC | [facility] | | | SUBSTITUTE FROM ABD WALL, | | | | OPEN APPROACH | | + + + + | 2022-11-04 00:00 | REPAIR ABDOMINAL WALL, | [facility] | | | OPEN APPROACH | | + + + + | 2022-11-04 00:00 | REPAIR ABDOMINAL WALL, | [facility] | | | OPEN APPROACH | | + + + + | 2022-11-04 00:00 | Repair of incisional | [facility] | | | hernia | | + + + + | 2022-11-04 00:00 | TRANSFUSE NONAUT RED BLOOD | [facility] | | | CELLS IN PERIPH VEIN, PERC | | | | | | + + + + | 2022-11-04 00:00 | TRANSFUSE NONAUT RED BLOOD | [facility] | | | CELLS IN PERIPH VEIN, PERC | | | | | | + + + + | 2022-11-04 00:00 | Exploratory laparotomy | [facility] | + + + + Results/Labs +--------+--------+ [...] trans packed | 02:35 | [facility] | [phone] | | | | RBC | | Hospital | 00E | | | + + + + + + + + + | Result panel 86 | + + + + + + + + + | Num units | 2022-11-05 | [facility] | | (missing) | (missing) | | trans packed | 02:35 | [facility] | [phone] | | | | RBC | | Hospital | 00J | | | + + + + + + + + + | Result panel 87 | + + + + + + + + + | Num units | 2022-11-05 | [facility] | | (missing) | (missing) | | trans packed | 02:35 | [facility] | [phone] | | | | RBC | | Hospital | 00V | | | + + + + + + + + + | Result panel 88 | + + + + + + + + + | Num units | 2022-11-05 | [facility] | | (missing) | (missing) | | trans packed | 02:35 | [facility] | [phone] | | | | RBC | | [...] trans packed | 02:35 | [facility] | [phone] | | | | RBC | | Hospital | 00E | | | + + + + + + + + + | Result panel 104 | + + + + + + + + + | Num units | 2022-11-05 | [facility] | | (missing) | (missing) | | trans packed | 02:35 | [facility] | [phone] | | | | RBC | | Hospital | 00J | | | + + + + + + + + + | Result panel 105 | + + + + + + + + + | Num units | 2022-11-05 | [facility] | | (missing) | (missing) | | trans packed | 02:35 | [facility] | [phone] | | | | RBC | | Hospital | 00V | | | + + + + + + + + + | Result panel 106 | + + + + + + + + + | Num units | 2022-11-05 | [facility] | | (missing) | (missing) | | trans packed | 02:35 | [facility] | [phone] | | | | RBC | | [...] | (unavailable | 02:35:07 | [facility] | [phone] | | | | ) | | Hospital | 00E | | | + + + + + + + + + | Result panel 124 | + + + + + + + + + | | 2022-11-05 | [facility] | | (missing) | (missing) | | (unavailable | 02:35:07 | [facility] | [phone] | | | | ) | | Hospital | 00J | | | + + + + + + + + + | Result panel 125 | + + + + + + + + + | | 2022-11-05 | [facility] | | (missing) | (missing) | | (unavailable | 02:35:07 | [facility] | [phone] | | | | ) | | Hospital | 00V | | | + + + + + + + + + | Result panel 126 | + + + + + + + + + | | 2022-11-05 | [facility] | | (missing) | (missing) | | (unavailable | 02:35:07 | [facility] | [phone] | | | | ) | | [...] | (unavailable | 02:35:08 | [facility] | [phone] | | | | ) | | Hospital | 00E | | | + + + + + + + + + | Result panel 141 | + + + + + + + + + | | 2022-11-05 | [facility] | | (missing) | (missing) | | (unavailable | 02:35:08 | [facility] | [phone] | | | | ) | | Hospital | 00J | | | + + + + + + + + + | Result panel 142 | + + + + + + + + + | | 2022-11-05 | [facility] | | (missing) | (missing) | | (unavailable | 02:35:08 | [facility] | [phone] | | | | ) | | Hospital | 00V | | | + + + + + + + + + | Result panel 143 | + + + + + + + + + | | 2022-11-05 | [facility] | | (missing) | (missing) | | (unavailable | 02:35:08 | [facility] | [phone] | | | | ) | | [...] | (unavailable | 02:35:08 | [facility] | [phone] | | | | ) | | Hospital | 00E | | | + + + + + + + + + | Result panel 154 | + + + + + + + + + | | 2022-11-05 | [facility] | | (missing) | (missing) | | (unavailable | 02:35:08 | [facility] | [phone] | | | | ) | | Hospital | 00J | | | + + + + + + + + + | Result panel 155 | + + + + + + + + + | | 2022-11-05 | [facility] | | (missing) | (missing) | | (unavailable | 02:35:08 | [facility] | [phone] | | | | ) | | Hospital | 00V | | | + + + + + + + + + | Result panel 156 | + + + + + + + + + | | 2022-11-05 | [facility] | | (missing) | (missing) | | (unavailable | 02:35:08 | [facility] | [phone] | | | | ) | | [...] (missing) | | blood | 05:21 | [facility] | | | | | lymphocyte | [...] 00:00 | Current every day smoker | [facility] | + + + + | 2022-11-26 00:00 | Current every day smoker | [facility] | + + + + Vital Signs [...]
[2023-04-24 21:00] VITALS: BP 172/95
== END ==
LOC: ED 17:00
DX: T83.022A Displacement of nephrostomy catheter, initial encounter (principal); Y73.8 Miscellaneous gastroenterology and urology devices associated with adverse incidents, not elsewhere classified; F17.200 Nicotine dependence, unspecified, uncomplicated; Z88.2 Allergy status to sulfonamides; Z91.013 Allergy to seafood; Z88.8 Allergy status to other drugs, medicaments and biological substances; Z79.899 Other long term (current) drug therapy
CPT/HCPCS: 36415; 74176; 80053; 85025; A9270; J0696; J1170

== ENCOUNTER 2024-05-13 00:01 | Observation (INO) | payer OTHER ==
[~2024-05-13] VITALS: Ht 167.6 cm; Wt 130.0 kg
[2024-05-13] VITALS (8 sets, daily range): BP systolic 136–157; BP diastolic 76–94
[~2024-05-13 00:01] MED LIST changes: +CELEBREX100 MG PO; +DICYCLOMINE HCL10 MG PO; +ESTRADIOL2 MG PO
[2024-05-13] MEDS ORDERED: AMITRIPTYLINE H25 MG PO (00:24)
[2024-05-13 00:37] LABS: BASOPHILS 0.7 % (0-2); EOSINOPHILS 0.7 % (0-6); HEMOGLOBIN 14.5 g/dL (12.0-18.0); LYMPHOCYTES 11.9 % (24-44); MCH 27.1 (27-36); MCHC 33.7 g/dl (30-36); MCV 80.3 fl (81-99); MONOCYTES 3.7 % (0-12); PLATELET COUNT 373 K/uL (140-440); RBC 5.35 M/ul (4.3-5.7); RDW 15.5 (10.5-15.0)
[2024-05-13] MEDS ORDERED: ondansetron HCL 4 MG/2 ML VIAL IV ONE (00:45)
[2024-05-13] MEDS ORDERED: HYDROmorphone HCL 1 MG/ML SYR IV PRN ×3 (00:45→08:45)
[2024-05-13] MEDS ORDERED: SODIUM CHLORIDE 0.9% 1,000 ML IV SCH (00:45)
[2024-05-13 00:47] LABS: BILIRUBIN, URINE POSITIVE (negative); BLOOD/HGB, URINE NEGATIVE (Negative); KETONE, URINE TRACE (Negative); LEUK ESTERASE, URINE NEGATIVE (negative); NITRITE, URINE NEGATIVE (negative); PH, URINE 8.5 (5-7)
[2024-05-13 00:52] LABS: ALBUMIN 3.7 g/dL (3.4-5.0); ALBUMIN/GLOBULIN RATIO 0.76 (1.1-2.4); ANION GAP 17.6 (7-21); BILIRUBIN, TOTAL 0.4 ng/dL (0.2-1.0); BUN/CREATININE RATIO 11.71 (6.0-28.6); CALCIUM 10.5 mg/dL (8.5-10.1); CREATININE, SERUM 1.11 mg/dL (0.55-1.02); POTASSIUM 3.6 mmol/L (3.5-5.1); PROTEIN, TOTAL 8.6 g/dL (6.4-8.2)
[2024-05-13 00:55] LABS: BACTERIA, URINE 1+ /hpf (negative); CASTS, URINE NONE SEEN \\lpf; COLLECTION TYPE, URINE CLEAN CATCH; CRYSTALS, URINE NONE SEEN (0-1+); EPITHELIAL CELLS, URINE SQUAMOUS 2+ /lpf (0-1+); REFLEX CULTURE, URINE No (No)
[2024-05-13] MEDS ORDERED: LIDOCAINE 2% VISCOUS 6 ML SYR MM ONE (03:00)
[2024-05-13] MEDS ORDERED: OMEPRAZOLE40 MG PO (03:28)
[2024-05-13] MEDS ORDERED: ondansetron HCL 4 MG/2 ML VIAL IV PRN ×2 (03:30→08:45)
[2024-05-13] MEDS ORDERED: D5W 1/2 NS + 20 KCL 1,000 ML IV SCH (03:30)
--- NOTE | 2024-05-13 03:30 | NUR ---
pt ARRIVED TO THE FLOOR VIA STRETCHER. pt WAS ABLE TO TX TO BED BY SBA. VITAL SIGNS AND ASSESSMENT DONE. NG TUBE ON LOW INTERMITTENT SUCTION. IV ASSESSED, WNL. pt DENIES ANY OTHER NEEDS AT THIS TIME. CALL LIGHT WITHIN REACH. BOWEL TONES ACTIVE.
--- NOTE | 2024-05-13 05:14 | NUR ---
SUBGRADE TESTER OBTAINED VITALS AND OUTPUT. PT STATES NO NEEDS AT THIS TIME. CALL LIGHT WITHIN REACH.
--- NOTE | 2024-05-13 05:34 | NUR ---
pt ON LOW INTERMITTENT SUCTION. pt C/O HER THROAT HURTING. DICUSSED PLAN WITH pt FOR PAIN RELIEF. pt PROVIDED WITH SWABS AT THIS TIME. NO OTHER CONCERNS AT THIS TIME.
--- NOTE | 2024-05-13 07:00 | NUR ---
REPORT RECEIVED FROM BILINGUAL RESEARCH INTERVIEWER RN JANET. PATIENT IS LYING IN BED WITH EYES CLOSED AND RESPIRATIONS ARE EVEN AND UNLABORED. NG TUBE IN PLACE. PATIENT STATED NO NEEDS AT THIS TIME. CALL LIGHT AND PERSONAL BELONGINGS ARE WITHIN REACH.
[2024-05-13] MEDS ORDERED: phenoL 177 ML SPRAY MT PRN (07:45)
[2024-05-13] MEDS ORDERED: DEXTROSE 5% - LACTATED RINGERS 1,000 ML IV SCH (08:45)
[2024-05-13] MEDS ORDERED: PROCHLORPERAZINE EDISYLATE 10 MG/2 ML VIAL IV PRN (08:45)
[2024-05-13] MEDS ORDERED: HYDROCODONE/ACETA 5/325 TAB PO PRN (08:45)
--- NOTE | 2024-05-13 08:55 | NUR ---
PATIENT IS SITTING UPRIGHT IN BED AND WATCHING TV. FULL ASSESSMENT COMPLETE AND DOCUMENTED IN THE CHART. PATIENT IS ALERT AND ORIENTED TIMES FOUR. PATIENT IS NPO WITH THE NG TUBE IN PLACE. BOWEL TONES ARE ACTIVE IN ALL FOUR QUADRANTS. PATIENT IS ON ROOM AIR AND LUNG SOUNDS ARE CLEAR BILATERALLY. CARDIAC WITH NORMAL S1 AND S2 BILATERALLY. RADIAL AND PEDAL PULSES ARE STRONG BILATERALLY. SENSATION INTACT WITH NO COMPLAINTS OF NUMBNESS AND TINGLING. PATIENT WITH 3/10 PAIN IN THE UPPER ABDOMEN. PATIENT IS NOT REQUESTING ANYTHING FOR PAIN AT THIS TIME. IV SITE IN THE LEFT FOREARM FLUSHED WITH 10 ML NORMAL SALINE. PATIENT WITH MAINTENANCE FLUIDS INFUSING AT 125 ML/HR. IV DRESSING IS CLEAN, DRY, AND INTACT. SKIN INTACT. SCATTERED TATTOOS NOTED. PATIENT IS EAGER TO HAVE THE NG TUBE REMOVED. PATIENT STATED NO FURTHER NEEDS AT THIS TIME. CALL LIGHT AND PERSONAL BELONGINGS ARE WITHIN REACH.
[2024-05-13] MEDS ORDERED: ENOXAPARIN SODIUM 40 MG/0.4 ML SYR SUB-Q SCH (09:00)
[2024-05-13] MEDS ORDERED: lisinopriL 10 MG TAB PO SCH (09:00)
--- NOTE | 2024-05-13 09:38 | NUR ---
NG TUBE REMOVED AT THIS TIME. PATIENT TOLERATED WELL. PATIENT WITH NO COMPLAINTS OF NAUSEA OR PAIN. PATIENT GIVEN A FRESH CUP OF ICE WATER. PATIENT IS NOW IN THE BATHROOM INDEPENDENTLY. PATIENT STATED NO FURTHER NEEDS AT THIS TIME. CALL LIGHT AND PERSONAL BELONGINGS ARE WITHIN REACH.
--- NOTE | 2024-05-13 09:56 | NUR ---
RN SPOKE WITH REGARDING ORDER FOR IV PROTONIX AND PO PROTONIX. RN RECEIVED TELEPHONE ORDER TO DISCONTINUE THE IV PROTONIX ORDER. MD WITH NO FURTHER ORDERS. CALL ENDED.
[2024-05-13] MEDS ORDERED: PANTOPRAZOLE SODIUM 40 MG/10 ML VIAL IV SCH (10:00)
[2024-05-13] MEDS ORDERED: PANTOPRAZOLE SODIUM 40 MG TABEC PO SCH (10:00)
--- NOTE | 2024-05-13 10:09 | NUR ---
PATIENT IS LYING IN BED WATCHING TV. PATIENT WITH NO COMPLAINTS OF NAUSEA OR PAIN. 0900 AND 1000 MEDICATIONS ADMINISTERED PER THE EMAR. IV SITE FLUSHED WITH 10 ML NORMAL SALINE. IV DRESSING IS CLEAN, DRY, AND INTACT. D5LR IS NOW INFUSING AT 100 ML/HR. PATIENT STATED NO FURTHER NEEDS AT THIS TIME. CALL LIGHT AND PERSONAL BELONGINGS ARE WITHIN REACH.
--- NOTE | 2024-05-13 11:21 | NUR ---
PATIENT IS LYING IN BED AND WATCHING TV. PATIENT STATED NO FURTHER NEEDS AT THIS TIME. CALL LIGHT AND PERSONAL BELONGINGS ARE WITHIN REACH.
[2024-05-13] MEDS ORDERED: IRON236 MG PO (11:50)
--- NOTE | 2024-05-13 12:21 | NUR ---
PATIENT IS LYING IN BED WITH EYES OPEN AND RESPIRATIONS ARE EVEN AND UNLABORED. PATIENT WITH NO LUNCH TRAY IN THE ROOM. RN CALLED DOWN TO THE KITCHEN. LUNCH TRAY IS ON THE WAY. PATIENT STATED NO FURTHER NEEDS AT THIS TIME. CALL LIGHT AND PERSONAL BELONGINGS ARE WITHIN REACH.
--- NOTE | 2024-05-13 13:16 | NUR ---
PATIENT IS AMBULATING IN THE HALLWAY INDEPENDENTLY. PATIENT STATED SHE FINISHED HER LUNCH TRAY AND HAS NO COMPLAINTS OF NAUSEA OR VOMITING. PATIENT STATED NO FURTHER NEEDS AT THIS TIME.
--- NOTE | 2024-05-13 13:49 | NUR ---
PATIENT IS LYING IN BED AND THELMA HINES IS GETTING THE PATIENTS VITAL SIGNS AND INTAKE AND OUTPUT. PATIENT WITH NO COMPLAINTS OF PAIN OR NAUSEA AND VOMITING. PATIENT BOWEL TONES ARE ACTIVE IN ALL FOUR QUADRANTS. PATIENT HAD A SMALL BOWEL MOVEMENT 05/13/24. IV SITE IS CLEAN, DRY, AND INTACT. IV WITH D5LR INFUSING AT 100 ML/HR. PATIENT STATED NO FURTHER NEEDS AT THIS TIME. CALL LIGHT AND PERSONAL BELONGINGS ARE WITHIN REACH.
--- NOTE | 2024-05-13 14:44 | NUR ---
PATIENT IS LYING IN BED ON THEIR RIGHT SIDE AND LOOKING ON THEIR PHONE. RESPIRATIONS ARE EVEN AND UNLABORED. PATIENT NOTIFIED OF DISCHARGE ORDER. PATIENT STATED NO FURTHER NEEDS AT THIS TIME. CALL LIGHT AND PERSONAL BELONGINGS ARE WITHIN REACH.
[2024-05-13] MEDS ORDERED: SERTRALINE HCL 100 MG TAB PO SCH (21:00)
[2024-05-13] MEDS ORDERED: AMITRIPTYLINE HCL 75 MG TABLET PO SCH (21:00)
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
== END 2024-05-13 15:15 | disposition home or self-care (01) ==
LOC: ED 00:01 → MS 00:03
PROVIDERS: Emergency Medicine; ADMIT Colon & Rectal Surgery; ATTEND Colon & Rectal Surgery
DX: K56.600 Partial intestinal obstruction, unspecified as to cause (principal); E66.9 Obesity, unspecified; I10 Essential (primary) hypertension; F17.210 Nicotine dependence, cigarettes, uncomplicated; Z68.42 Body mass index [BMI] 45.0-49.9, adult; Z88.2 Allergy status to sulfonamides; Z88.8 Allergy status to other drugs, medicaments and biological substances; Z91.013 Allergy to seafood; Z79.899 Other long term (current) drug therapy
CPT/HCPCS: 36415; 74177; 80053; 81001; 83690; 84703; 85025; 96361; 96376; A9270; G0378; J1170; J2405; J3480; J7030; J7121; Q9967

== ENCOUNTER 2024-08-03 07:58 | Emergency (ER) | payer OTHER ==
[~2024-08-03] VITALS: Ht 167.6 cm; Wt 134.6 kg
[~2024-08-03 07:58] MED LIST changes: +IRON236 MG PO
[2024-08-03 08:26] LABS: BILIRUBIN, URINE NEGATIVE (negative); BLOOD/HGB, URINE NEGATIVE (Negative); KETONE, URINE NEGATIVE (Negative); LEUK ESTERASE, URINE NEGATIVE (negative); NITRITE, URINE NEGATIVE (negative)
[2024-08-03] MEDS ORDERED: SODIUM CHLORIDE 0.9% 1,000 ML IV PRN (08:30)
[2024-08-03] MEDS ORDERED: ondansetron HCL 4 MG/2 ML VIAL IV ONE (08:30)
[2024-08-03] MEDS ORDERED: KETOROLAC TROMETHAMINE 30 MG/ML VIAL IV ONE (08:30)
[2024-08-03 08:32] LABS: BASOPHILS 1.2 % (0-2); EOSINOPHILS 2.1 % (0-6); HEMATOCRIT 38.2 % (35.0-50.0); HEMOGLOBIN 12.7 g/dL (12.0-18.0); MCH 27.3 (27-36); MCHC 33.2 g/dl (30-36); MCV 82.1 fl (81-99); MONOCYTES 3.9 % (0-12); NEUTROPHILS 74.8 % (39-80); PLATELET COUNT 296 K/uL (140-440); RBC 4.65 M/ul (4.3-5.7); RDW 15.1 (10.5-15.0)
[2024-08-03 08:41] LABS: ALBUMIN/GLOBULIN RATIO 0.7 (1.1-2.4); ANION GAP 16.3 (7-21); BILIRUBIN, TOTAL 0.2 ng/dL (0.2-1.0); BUN/CREATININE RATIO 17.14 (6.0-28.6); CALCIUM 8.9 mg/dL (8.5-10.1); CREATININE, SERUM 1.05 mg/dL (0.55-1.02); POTASSIUM 4.3 mmol/L (3.5-5.1); PROTEIN, TOTAL 7.3 g/dL (6.4-8.2)
[2024-08-03] MEDS ORDERED: ONDANSETRON ODT4 MG SL (09:47)
[2024-08-03 09:52] VITALS: BP 116/66
== END 2024-08-03 09:52 | disposition home or self-care (01) ==
LOC: ED 07:58
PROVIDERS: Emergency Medicine
DX: K43.9 Ventral hernia without obstruction or gangrene (principal); G43.909 Migraine, unspecified, not intractable, without status migrainosus; F17.200 Nicotine dependence, unspecified, uncomplicated; Z88.2 Allergy status to sulfonamides; Z91.013 Allergy to seafood; Z88.8 Allergy status to other drugs, medicaments and biological substances; Z79.899 Other long term (current) drug therapy
CPT/HCPCS: 36415; 74177; 80053; 81003; 83605; 83690; 85025; 96375; 99284-25; J1885; J2405; J7030; Q9967

== ENCOUNTER 2024-10-05 08:00 | Emergency (ER) | payer OTHER ==
[~2024-10-05] VITALS: Ht 167.6 cm; Wt 139.7 kg
[~2024-10-05 08:00] MED LIST changes: +ONDANSETRON ODT4 MG SL
[2024-10-05] MEDS ORDERED: SODIUM CHLORIDE 0.9% 1,000 ML IV ONE (08:45)
[2024-10-05] MEDS ORDERED: KETOROLAC TROMETHAMINE 30 MG/ML VIAL IV ONE (08:45)
[2024-10-05] MEDS ORDERED: ondansetron HCL 4 MG/2 ML VIAL IV ONE (08:45)
[2024-10-05 08:58] LABS: BASOPHILS 0.6 % (0-2); EOSINOPHILS 1.9 % (0-6); HEMATOCRIT 37.5 % (35.0-50.0); HEMOGLOBIN 12.6 g/dL (12.0-18.0); LYMPHOCYTES 17.3 % (24-44); MCH 27.3 (27-36); MCHC 33.6 g/dl (30-36); MCV 81.4 fl (81-99); MONOCYTES 5.3 % (0-12); NEUTROPHILS 74.9 % (39-80); PLATELET COUNT 315 K/uL (140-440); RBC 4.61 M/ul (4.3-5.7)
[2024-10-05 09:14] LABS: ALBUMIN/GLOBULIN RATIO 0.68 (1.1-2.4); ANION GAP 13.6 (7-21); BILIRUBIN, TOTAL 0.1 ng/dL (0.2-1.0); CALCIUM 9.1 mg/dL (8.5-10.1); POTASSIUM 4.6 mmol/L (3.5-5.1); PROTEIN, TOTAL 7.4 g/dL (6.4-8.2)
[2024-10-05] MEDS ORDERED: ONDANSETRON ODT8 MG PO (10:06)
[2024-10-05] MEDS ORDERED: HYDROCODON-ACE1 EA10 PO (10:09)
[2024-10-05 10:13] VITALS: BP 105/68
[2024-10-05] MEDS ORDERED: HYDROCODONE/ACETA 7.5/325 TAB PO ONE (10:15)
== END 2024-10-05 10:13 | disposition home or self-care (01) ==
LOC: ED 08:00
PROVIDERS: Emergency Medicine
DX: K43.9 Ventral hernia without obstruction or gangrene (principal); G43.909 Migraine, unspecified, not intractable, without status migrainosus; F17.200 Nicotine dependence, unspecified, uncomplicated; Z90.49 Acquired absence of other specified parts of digestive tract; Z88.2 Allergy status to sulfonamides; Z88.8 Allergy status to other drugs, medicaments and biological substances; Z91.013 Allergy to seafood; Z79.899 Other long term (current) drug therapy
CPT/HCPCS: 36415; 74177; 80053; 83690; 85025; 96375; 99284-25; A9270; J1885; J2405; J7030; Q9967

== ENCOUNTER 2025-02-05 14:32 | Emergency (ER) | payer OTHER | END 2025-02-05 19:26 | disposition home or self-care (01) | LOC: ED 14:32 | DX: K43.9 Ventral hernia without obstruction or gangrene (principal); G43.909 Migraine, unspecified, not intractable, without status migrainosus; Z79.84 Long term (current) use of oral hypoglycemic drugs; Z79.899 Other long term (current) drug therapy; Z88.2 Allergy status to sulfonamides; Z91.013 Allergy to seafood; Z88.8 Allergy status to other drugs, medicaments and biological substances ==

== ENCOUNTER 2025-07-25 17:56 | Emergency (ER) | payer OTHER ==
[~2025-07-25] VITALS: Ht 167.6 cm; Wt 111.6 kg
[~2025-07-25 17:56] MED LIST changes: +LIRAGLUTID0.6 MG/0.1 INJ; +METFORMIN HCL500 M1 PO
[2025-07-25 18:30] LABS: BASOPHILS 0.5 % (0.1-1.2); EOSINOPHILS 1.7 % (0.7-5.8); LYMPHOCYTES 26.5 % (19.3-51.7); MCH 27.6 PG (25.6-32.2); MCHC 32.7 g/dL (32.2-35.5); MCV 84.2 fL (79.4-94.8); MONOCYTES 4.8 % (4.7-12.5); NEUTROPHILS 65.7 % (34.0-71.1); RBC 4.50 M/uL (3.93-5.22)
[2025-07-25] MEDS ORDERED: SODIUM CHLORIDE 0.9% 1,000 ML IV ONE (18:30)
[2025-07-25 18:46] LABS: ALCOHOL, MEDICAL <3 ng/dL (<3); ALT (SGPT) 20 U/L (14-59); AST (SGOT) 11 U/L (15-37); GLOMERULAR FILTRATION RATE,EST 72 mL/min (>60); PROTEIN, TOTAL 7.5 g/dL (6.4-8.2); UREA NITROGEN 8 mg/dL (7-18)
[2025-07-25 20:16] LABS: BLOOD/HGB, URINE NEGATIVE (Negative); KETONE, URINE NEGATIVE (Negative); LEUK ESTERASE, URINE SMALL (negative); NITRITE, URINE POSITIVE (negative)
[2025-07-25 20:23] LABS: EPITHELIAL CELLS, URINE SQUAMOUS 4+ /lpf (0-1+)
[2025-07-25 20:24] LABS: BACTERIA, URINE 4+ /hpf (negative); CASTS, URINE NONE SEEN \\lpf; CRYSTALS, URINE NONE SEEN (0-1+); REFLEX CULTURE, URINE No (No)
[2025-07-25 20:41] LABS: AMPHETAMINES, URINE NEGATIVE (NEGATIVE); BARBITURATES, URINE NEGATIVE (NEGATIVE); BENZODIAZEPINE, URINE NEGATIVE (NEGATIVE); CANNABINOID, URINE POSITIVE (NEGATIVE); COCAINE, URINE NEGATIVE (NEGATIVE); ECSTASY, URINE NEGATIVE (NEGATIVE); FENTANYL, URINE NEGATIVE (NEGATIVE); METHADONE, URINE NEGATIVE (NEGATIVE); OPIATES, URINE NEGATIVE (NEGATIVE); OXYCODONE, URINE NEGATIVE (NEGATIVE); PHENCYCLIDINE, URINE NEGATIVE (NEGATIVE)
[2025-07-25] MEDS ORDERED: KEPPRA500 MG PO (21:15)
[2025-07-25] MEDS ORDERED: MACROBID 100 M100 MG PO (21:16)
[2025-07-25] MEDS ORDERED: NITROFURANTOIN MONOHYD MACROCR 100 MG HOME.PACK PO ONE (21:30)
[2025-07-25] MEDS ORDERED: KETOROLAC TROMETHAMINE 30 MG/ML VIAL IV ONE (21:45)
[2025-07-25 22:00] VITALS: BP 122/80
== END 2025-07-25 22:39 | disposition home or self-care (01) ==
LOC: ED 17:56
PROVIDERS: Emergency Medicine
DX: R56.9 Unspecified convulsions (principal); F17.200 Nicotine dependence, unspecified, uncomplicated; Z79.84 Long term (current) use of oral hypoglycemic drugs; Z79.899 Other long term (current) drug therapy; Z88.2 Allergy status to sulfonamides; Z91.013 Allergy to seafood
CPT/HCPCS: 36415; 70450; 72125; 80053; 80307; 81001; 85025; 96365; 96375; 99285-25; G0480; J1885; J1953; J2405; J7030